=== PATIENT | male | born 1950 | race Caucasian/White ===

== ENCOUNTER 2020-01-07 11:50 | Observation (INO) | payer MEDICARE, OTHER ==
[~2020-01-07] VITALS: Ht 190.5 cm; Wt 109.8 kg
[2020-01-07] MEDS ORDERED: WELLTAB38 PO (12:21)
[2020-01-07] MEDS ORDERED: METF10004 PO (12:21)
[2020-01-07] MEDS ORDERED: GLYB25TA PO (12:21)
[2020-01-07] MEDS ORDERED: ECOT81TA5 PO (12:21)
[2020-01-07] MEDS ORDERED: KP F1200 PO (12:21)
[2020-01-07] MEDS ORDERED: SIMV10TA21 PO (12:21)
[2020-01-07] MEDS ORDERED: NIAC500T17 PO (12:21)
[2020-01-07] MEDS ORDERED: LISI-672 PO (12:21)
[2020-01-07] MEDS ORDERED: TH DTAB2 PO (12:21)
[2020-01-07 12:44] LABS: BASO % 0.6 % (0.0-1.0); EOS # 0.1 10^3/uL (0.0-0.5); EOS % 1.2 % (0.0-3.0); HEMATOCRIT 47.7 % (42.0-52.0); LYMPH # 2.2 10^3/uL (1.5-5.0); LYMPH % 30.8 % (24.0-44.0); MEAN CORPUSCULAR HEMOGLOBIN 30.7 pg (27.0-33.0); MEAN CORPUSCULAR HGB CONC 33.5 g/dl (32.0-36.5); MEAN CORPUSCULAR VOLUME 91.4 fl (80.0-96.0); MONO # 0.8 10^3/uL (0.0-0.8); MONO % 10.6 % (0.0-5.0); NEUTROPHILS # 4.1 10^3/uL (1.5-8.5); NEUTROPHILS % 56.5 % (36.0-66.0); PLATELET COUNT, AUTOMATED 168 10^3/uL (150-450); RED BLOOD COUNT 5.22 10^6/uL (4.30-6.10); WHITE BLOOD COUNT 7.2 10^3/uL (4.0-10.0)
--- NOTE | 2020-01-07 13:11 | REP ---
PA and lateral chest: There are no comparisons. The lung child are clear. The cardiac size is normal. The abner, mediastinum, and skeletal structures are unremarkable. Impression: Negative PA and lateral chest. Electronically Signed by Thiago Mclean MD 01/07/2020 01:03 P
[2020-01-07] MEDS ORDERED: LABETALOL HCL 100 MG/20 ML VIAL IV STA (13:15)
[2020-01-07] MEDS ORDERED: NS 500 ML IV ONE (13:45)
[2020-01-07 13:51] LABS: BLOOD UREA NITROGEN 19 MG/DL (7-18); CALCIUM LEVEL 9.2 MG/DL (8.8-10.2); CARBON DIOXIDE LEVEL 28 MEQ/L (21-32); CHLORIDE LEVEL 105 MEQ/L (98-107); CPK CREATINE PHOSPHOKINASE 141 U/L (39-308); CREATININE FOR GFR 1.03 MG/DL (0.70-1.30); GLOMERULAR FILTRATION RATE > 60.0 (>49); GLUCOSE, FASTING 172 MG/DL (70-100); MB/CK RELATIVE INDEX 2.84 (< OR =4); POTASSIUM SERUM 4.5 MEQ/L (3.5-5.1); SODIUM LEVEL 138 MEQ/L (136-145); TROPONIN I 0.09 NG/ML (< 0.10)
[2020-01-07 13:57] LABS: ALBUMIN 3.8 GM/DL (3.2-5.2); BILIRUBIN,DIRECT 0.1 MG/DL (0.0-0.2); BILIRUBIN,TOTAL 0.3 MG/DL (0.2-1.0); FREE T4 0.98 NG/DL (0.76-1.46); MAGNESIUM LEVEL 1.9 MG/DL (1.8-2.4); PHOSPHORUS LEVEL 3.2 MG/DL (2.5-4.9); THYROID STIMULATING HORMONE 1.8 uIU/ML (0.358-3.740); TOTAL PROTEIN 7.1 GM/DL (6.4-8.2)
[2020-01-07] MEDS ORDERED: METOPROLOL 5 MG/5 ML VIAL As Ordered ONE (14:11)
[2020-01-07] MEDS: METOPROLOL 5 MG/5 ML VIAL IV SCH ×3 (14:20→15:04)
[2020-01-07] MEDS ORDERED: TRAZ-252 PO (15:09)
[2020-01-07] MEDS ORDERED: IBUP200T45 PO (15:09)
[2020-01-07] MEDS ORDERED: TRAZ-189 PO (15:12)
[2020-01-07] MEDS ORDERED: traZODone 100 MG TAB PO PRN (15:30)
[2020-01-07] MEDS ORDERED: METOPROLOL TART 25 MG TABLET PO ONE (15:30)
--- NOTE | 2020-01-07 15:31 | HPEPDOC ---
[facility] Medical History & Physical Date of Admission Jan 07, 2020 Date of Service: Jan 07, 2020 Attending Physician: TIGRE BENZ MD History and Physical CHIEF COMPLAINT: Arrhythmia HISTORY OF PRESENT ILLNESS: 69-year-old male with past medical history of hypertension, diabetes mellitus, prostate cancer status post prostatectomy and hyperlipidemia presents from PCPs office with arrhythmia. Patient reports noticing elevated heart rate on Sunday while he was at the gym, has been monitoring his heart rate. Since then, every day and reports average heart rate between 90-110. Patient also has associated palpitations at night, no other symptoms. He denies any dizziness, chest pain, shortness of breath, nausea, vomiting, abdominal pain or diarrhea. He went to his PCP earlier today who did an EKG in the office which showed an arrhythmia and sent into the hospital. In the ED, patient's found to be in A. fib with RVR, treated with IV labetalol and metoprolol. Patient is currently comfortable in bed, a symptomatic, will complete at this time. 10 point review of system is negative except for above PAST MEDICAL HISTORY: 1. Hypertension. 2. diabetes mellitus. 3. Hyperlipidemia. 4. Depression. 5. Prostate cancer PAST SURGICAL HISTORY: 1. Prostatectomy. SOCIAL HISTORY: Ex-smoker, quit over 20 years ago, smoked 1 pack per day for over 30 years. 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 Denies drug use FAMILY HISTORY: Negative for heart disease ALLERGIES: Please see below. HOME MEDICATIONS: Please see below. PHYSICAL EXAMINATION: VITAL SIGNS: Please see below. GENERAL: No distress HEENT: Normocephalic, atraumatic, moist mucous membranes NECK: Supple CARDIOVASCULAR EXAMINATION: Irregularly irregular, tachycardic no murmurs RESPIRATORY EXAMINATION: Clear to auscultation, no wheezing ABDOMINAL EXAMINATION: Soft, nontender, nondistended, positive bowel sounds EXTREMITIES: Range of motion intact SKIN: No rash NEUROLOGICAL EXAMINATION: Alert and oriented 3, no focal deficits PSYCHIATRIC EXAMINATION: Calm and cooperative LABORATORY DATA: See below. IMAGING: Chest x-ray without acute pathology MICROBIOLOGY: Please see below. ASSESSMENT: 69-year-old male with past medical history of hypertension, diabetes mellitus, hyperlipidemia, prostate cancer, and depression, being admitted for new onset A. fib with RVR. . PLAN: 1. Atrial fibrillation with rapid ventricular response. Status post IV labetalol to metoprolol in the ED, rate mildly elevated, metoprolol tartrate 25 mg 1 now followed by 25 mg twice a day, Xarelto 20 mg daily for anticoagulation, TTE ordered, case discussed with care nurse rn, Dr. Chau, who recommends stabilization with outpatient follow-up for possible ablation as current arrhythmia has persisted for greater than 24 hours. Telemetry monitoring 2. Hypertension. Continue home lisinopril 3. Hyperlipidemia. Continue simvastatin. 4. Diabetes mellitus Sliding scale insulin with meals and at bedtime DVT prophylaxis: On Xarelto GI prophylaxis: Not needed Vital Signs Vital Signs Date Time Temp Pulse Resp B/P (MAP) Pulse Ox O2 Delivery O2 Flow Rate FiO2 01/07/20 15:04 118 179/89 01/07/20 12:40 Room Air 01/07/20 12:03 18 98 01/07/20 11:50 98.1 Laboratory Data Labs 24H Laboratory Tests 2 01/07/20 12:33: Immature Granulocyte % (Auto) 0.3, Neutrophils (%) (Auto) 56.5, Lymphocytes (%) (Auto) 30.8, Monocytes (%) (Auto) 10.6H, Eosinophils (%) (Auto) 1.2, Basophils (%) (Auto) 0.6, Neutrophils # (Auto) 4.1, Lymphocytes # (Auto) 2.2, Monocytes # (Auto) 0.8, Eosinophils # (Auto) 0.1, Basophils # (Auto) 0.0, Nucleated Red Blood Cells % (auto) 0.0 01/07/20 13:10: Anion Gap 5L, Glomerular Filtration Rate > 60.0, Calcium Level 9.2, Phosphorus Level 3.2, Magnesium Level 1.9, Total Bilirubin 0.3, Direct Bilirubin 0.1, Aspartate Amino Transf (AST/SGOT) 17, Alanine Aminotransferase (ALT/SGPT) 38, Alkaline Phosphatase 69, Total Creatine Kinase 141, Creatine Kinase MB 4.0H, Creatine Kinase MB Relative Index 2.84, Troponin I 0.09, Total Protein 7.1, Albumin 3.8, Albumin/Globulin Ratio 1.15, Thyroid Stimulating Hormone (TSH) 1.800, Free Thyroxine 0.98 CBC/BMP Laboratory Tests 01/07/20 12:33 01/07/20 13:10 Home Medications Scheduled Aspirin (Ecotrin) 81 Mg Tablet., 81 MG PO QPM Bupropion HCl (Wellbutrin Xl) 150 Mg Tab.er.24h, 150 MG PO DAILY Fish Oil/Dha/Epa (Fish Oil 1,200 mg Fish Oil) 1 Each Capsule, 1 CAP PO DAILY Glyburide (Glyburide) 2.5 Mg Tablet, 2.5 MG PO DAILY Lisinopril (Lisinopril) 30 Mg Tablet, 30 MG PO DAILY Metformin HCl (Metformin HCl) 1,000 Mg Tablet, 1,000 MG PO BID Multivitamin (Daily Multiple Vitamin) 1 Each Tablet, 1 TAB PO DAILY Niacinamide (Niacin) 500 Mg Tablet, 500 MG PO QPM Simvastatin (Simvastatin) 10 Mg Tablet, 10 MG PO QPM Scheduled PRN Ibuprofen (Ibu-200) 200 Mg Tablet, 600 MG PO Q6H PRN for PAIN Trazodone HCl (Trazodone HCl) 100 Mg Tablet, 50 MG PO QHS PRN for SLEEP Allergies Coded Allergies: miconazole (Verified Allergy, Intermediate, rash, 01/07/20) amoxicillin (Verified Adverse Reaction, Intermediate, diarrhea, 01/07/20) clavulanic acid (Verified Adverse Reaction, Intermediate, diarrhea, 01/07/20) A-FIB/CHADSVASC A-FIB History Current/History of A-Fib/PAF?: Yes Current PO Anticoag Therapy: Yes TIGRE BENZ MD Jan 07, 2020 15:31
[2020-01-07] MEDS ORDERED: GLUCAGON FOR INJ 1 MG VIAL (J1610) SC PRN (15:45)
[2020-01-07] MEDS ORDERED: DEXTROSE 50% 50 ML SYRINGE IV PRN (15:45)
[2020-01-07] MEDS ORDERED: GLUCOSE 4 GM CHEW TABLET PO PRN (15:45)
[2020-01-07] MEDS ORDERED: SIMVASTATIN 10 MG TAB PO SCH (18:00)
[2020-01-07] MEDS ORDERED: RIVAROXABAN 20 MG TAB (XARELTO) PO SCH (18:00)
[2020-01-07] MEDS ORDERED: ASPIRIN 81 MG ENTERIC TAB PO SCH (18:00)
[2020-01-07 18:04] VITALS: BP 169/93
[2020-01-07] MEDS: HumaLOG INSULIN (NovoLOG) PER UNIT SC SCH (19:03)
--- NOTE | 2020-01-07 20:57 | ECGEPIP ---
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
--- NOTE | 2020-01-07 20:59 | ECGEPIP ---
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
[2020-01-07] MEDS ORDERED: HumaLOG INSULIN (NovoLOG) PER UNIT SC SCH (21:00)
[2020-01-07] MEDS: METOPROLOL TART 25 MG TABLET PO SCH (21:47)
[2020-01-07 22:00] VITALS: BP 140/84
[2020-01-08 06:00] VITALS: BP 144/83
[2020-01-08 07:03] LABS: HEMATOCRIT 44.6 % (42.0-52.0); HEMOGLOBIN 14.9 g/dl (13.5-17.5); MEAN CORPUSCULAR HEMOGLOBIN 30.7 pg (27.0-33.0); MEAN CORPUSCULAR HGB CONC 33.4 g/dl (32.0-36.5); PLATELET COUNT, AUTOMATED 166 10^3/uL (150-450); RED BLOOD COUNT 4.85 10^6/uL (4.30-6.10); WHITE BLOOD COUNT 8.3 10^3/uL (4.0-10.0)
--- NOTE | 2020-01-08 07:30 | ECHO ---
DATE OF PROCEDURE: 01/07/2020 DATE OF : 1950 AGE: 69 GENDER: Male. HEIGHT: 75 inches WEIGHT: 242 pounds BODY SURFACE AREA: 2.39 meters squared INPATIENT: 4 [place] - Room 4225 REFERRING PHYSICIAN: Dr. Yonas Johnson INDICATION: Abnormal EKG/atrial fibrillation MEASUREMENTS 2-D Measurements: RV: 4.0 cm LV: 4.2 cm Septum: 1.2 cm Posterior wall: 1.2 cm Aortic root: 3.7 cm LA: 4.5 cm LVEF: 45-50% Doppler Measurements: AV: 1.6 m/s LVOT: 0.57 m/s LVOT diameter: 2.6 cm AV mean gradient: 6 mmHg Dimensionless index: 0.35 MV - E 77 Early mitral deceleration time: 158 ms E prime medial: 6.4 E prime lateral: 11.4 Average E/E prime ratio: 8.7/PCWP: 12.6 mmHg PV: 0.6 m/s Pulmonary artery acceleration time: 88 ms RVSP: 53-58 mmHg IVC: 2.2 cm COMMENTS: Underlying atrial fibrillation with controlled ventricular response. No intraventricular conduction disturbance. M-mode and two-dimensional echocardiography was performed with pulsed, continuous wave, color flow and tissue Doppler studies. Mild concentric left ventricle hypertrophy with currently mild global hypokinesis. Moderately dilated left atrium with currently normal estimated mean left atrial pressure. Right ventricular size upper limits of normal with slight hypokinesis and Doppler evidence of at least moderate to moderately severe pulmonary hypertension. Mildly dilated right atrium and inferior vena cava with reduced respiratory collapse in keeping with an elevated central venous pressure/right heart failure. Moderately severe aortic valvular sclerosis. Three equal size aortic cusps with reduced cusp separation and Doppler evidence to suggest at least mild calcific aortic stenosis. Mild aortic insufficiency. Normal aortic diameters. Mild degenerative thickening of the mitral valvular apparatus without inflow tract obstruction, but mild insufficiency. Normal appearing tricuspid valve with mild-moderate insufficiency. No apparent intracardiac mass or pericardial effusion. MTDD
[2020-01-08 07:46] LABS: ALBUMIN 3.6 GM/DL (3.2-5.2); ALT/SGPT 36 U/L (12-78); BILIRUBIN,TOTAL 0.3 MG/DL (0.2-1.0); BLOOD UREA NITROGEN 20 MG/DL (7-18); CALCIUM LEVEL 8.9 MG/DL (8.8-10.2); CARBON DIOXIDE LEVEL 24 MEQ/L (21-32); CHLORIDE LEVEL 105 MEQ/L (98-107); CREATININE FOR GFR 1.09 MG/DL (0.70-1.30); GLOMERULAR FILTRATION RATE > 60.0 (>49); GLUCOSE, FASTING 141 MG/DL (70-100); MAGNESIUM LEVEL 1.9 MG/DL (1.8-2.4); POTASSIUM SERUM 4.2 MEQ/L (3.5-5.1); SODIUM LEVEL 137 MEQ/L (136-145); TOTAL PROTEIN 7.1 GM/DL (6.4-8.2)
[2020-01-08 08:50] VITALS: BP 165/86
[2020-01-08] MEDS: METOPROLOL TART 25 MG TABLET PO SCH (08:50)
[2020-01-08] MEDS: HumaLOG INSULIN (NovoLOG) PER UNIT SC SCH ×2 (08:51→13:45)
[2020-01-08] MEDS ORDERED: buPROPion **XL** TABLET 150MG (WELLBUTRIN XL) PO SCH (09:00)
[2020-01-08] MEDS ORDERED: lisinopriL 10 MG TAB PO SCH (09:00)
[2020-01-08] MEDS ORDERED: FUROSEMIDE 40 MG/4 ML VIAL (J1940) IV ONE (09:15)
[2020-01-08] MEDS ORDERED: METO1TAB87 PO (12:02)
[2020-01-08] MEDS ORDERED: XARE20TA PO (12:02)
--- NOTE | 2020-01-08 22:50 | DS.PDOC ---
Discharge Summary General Date of Admission Jan 07, 2020 at 11:51 Date of Discharge 01/08/20 Attending Physician: TIGRE BENZ MD Discharge Summary PROCEDURES PERFORMED DURING STAY: None. ADMITTING DIAGNOSES: 1. New onset atrial fibrillation with rapid ventricular response. DISCHARGE DIAGNOSES: 1. New-onset atrial fibrillation with rapid ventricular response. COMPLICATIONS/CHIEF COMPLAINT: Atrial Fib With Rvr Diabetes Mellitus Hld Htn. HISTORY OF PRESENT ILLNESS: 69-year-old male with past medical history of diabetes mellitus, hypertension and hyperlipidemia who was admitted for new onset atrial fibrillation with rapid ventricular response. Patient was treated with metoprolol for rate control and started on Xarelto for anticoagulation. Patient had a TTE performed which did not show any acute pathology, but did show concentric left ventricular hypertrophy, mild global hypokinesis and elevated right-sided pressures. Case was discussed with Dr. Chau who recommended discharge home with outpatient follow-up for further management including possible cardioversion in the future. Patient evaluated in the morning, asymptomatic, rate is appropriately controlled, no complete at this time. Patient is clinically and hemodynamically stable for discharge and outpatient follow-up. HOSPITAL COURSE: As above. DISCHARGE MEDICATIONS: Please see below. ALLERGIES: Please see below. PHYSICAL EXAMINATION: VITAL SIGNS: Please see below. GENERAL: No distress HEENT: Normocephalic, atraumatic, moist mucous membranes NECK: Supple CARDIOVASCULAR EXAMINATION: Irregularly irregular, no murmurs RESPIRATORY EXAMINATION: Clear to auscultation, no wheezing ABDOMINAL EXAMINATION: Soft, nontender, nondistended, positive bowel sounds EXTREMITIES: Range of motion intact SKIN: No rash NEUROLOGICAL EXAMINATION: Alert and oriented 3, no focal deficits PSYCHIATRIC EXAMINATION: Calm and cooperative LABORATORY DATA: Please see below. IMAGING: TTE showing concentric left ventricular hypertrophy, mild global hypokinesis and elevated right-sided pressures PROGNOSIS: Fair ACTIVITY: As tolerated. DIET: Cardiac DISCHARGE PLAN: Follow-up with cardiology and PCP within 1-2 weeks DISPOSITION: 01 Home, Self-Care. DISCHARGE INSTRUCTIONS: 1. As above. DISCHARGE CONDITION: Stable. TIME SPENT ON DISCHARGE: Greater than 34 minutes. Vital Signs/I&Os Vital Signs Date Time Temp Pulse Resp B/P (MAP) Pulse Ox O2 Delivery O2 Flow Rate FiO2 01/08/20 08:50 98 165/86 01/08/20 06:00 98.0 20 97 01/07/20 18:04 Room Air I&O- Last 24 Hours up to 6 AM 01/08/20 06:00 Intake Total 2300 ml Output Total 1350 ml Balance 950 ml Laboratory Data Labs 24H Laboratory Tests 2 01/08/20 06:21: Nucleated Red Blood Cells % (auto) 0.0, Anion Gap 8, Glomerular Filtration Rate > 60.0, Calcium Level 8.9, Magnesium Level 1.9, Total Bilirubin 0.3, Aspartate Amino Transf (AST/SGOT) 25, Alanine Aminotransferase (ALT/SGPT) 36, Alkaline Ph osphatase 64, Total Protein 7.1, Albumin 3.6, Albumin/Globulin Ratio 1.03 01/08/20 12:22: Bedside Glucose (Misc Panel) 197H CBC/BMP Laboratory Tests 01/08/20 06:21 FSBS Laboratory Tests Test 01/08/20 12:22 Range/Units Bedside Glucose (Misc Panel) 197 80-115 MG/DL Discharge Medications Scheduled Aspirin (Ecotrin) 81 Mg Tablet.dr, 81 MG PO QPM, (Reported) Bupropion HCl (Wellbutrin Xl) 150 Mg Tab.er.24h, 150 MG PO DAILY, (Reported) Fish Oil/Dha/Epa (Fish Oil 1,200 mg Fish Oil) 1 Each Capsule, 1 CAP PO DAILY, (Reported) Glyburide (Glyburide) 2.5 Mg Tablet, 2.5 MG PO DAILY, (Reported) Lisinopril (Lisinopril) 30 Mg Tablet, 30 MG PO DAILY, (Reported) Metformin HCl (Metformin HCl) 1,000 Mg Tablet, 1,000 MG PO BID, (Reported) Metoprolol Tartrate (Metoprolol Tartrate) 25 Mg Tablet, 25 MG PO BID Multivitamin (Daily Multiple Vitamin) 1 Each Tablet, 1 TAB PO DAILY, (Reported) Niacinamide (Niacin) 500 Mg Tablet, 500 MG PO QPM, (Reported) Rivaroxaban (Xarelto) 20 Mg Tablet, 20 MG PO QHS@1800 Simvastatin (Simvastatin) 10 Mg Tablet, 10 MG PO QPM, (Reported) Scheduled PRN Trazodone HCl (Trazodone HCl) 100 Mg Tablet, 50 MG PO QHS PRN for SLEEP, (Report ed) Allergies Coded Allergies: miconazole (Verified Allergy, Intermediate, rash, 01/07/20) amoxicillin (Verified Adverse Reaction, Intermediate, diarrhea, 01/07/20) clavulanic acid (Verified Adverse Reaction, Intermediate, diarrhea, 01/07/20) TIGRE BENZ MD Jan 08, 2020 22:50
== END 2020-01-08 11:45 | disposition home or self-care (01) ==
LOC: M ED 11:50 → M ED INP 11:51 → ENRESERVDT 16:27 → ENRESERVTM 16:27 → M MSPAV 17:52
PROVIDERS: ADMIT Internal Medicine; ATTEND Internal Medicine
DX: I48.91 Unspecified atrial fibrillation (principal); I49.3 Ventricular premature depolarization; I16.0 Hypertensive urgency; E78.5 Hyperlipidemia, unspecified; E11.9 Type 2 diabetes mellitus without complications; I51.7 Cardiomegaly; F32.9 Major depressive disorder, single episode, unspecified; Z79.899 Other long term (current) drug therapy; Z79.82 Long term (current) use of aspirin; Z79.84 Long term (current) use of oral hypoglycemic drugs; Z79.01 Long term (current) use of anticoagulants; Z88.0 Allergy status to penicillin; Z88.3 Allergy status to other anti-infective agents; Z87.891 Personal history of nicotine dependence; Z85.46 Personal history of malignant neoplasm of prostate; Z90.79 Acquired absence of other genital organ(s); F10.21 Alcohol dependence, in remission
CPT/HCPCS: 36415; 71046; 80048; 80053; 80076; 82550; 82553; 83735; 84100; 84145; 84439; 84443; 84484; 85025; 85027; 93005; 93041; 93306; 94760; 96361; 96374; 96375; 96376; 99285; G0378; J1940

== ENCOUNTER → 2020-04-16 | Outpatient (CLI) | payer MEDICARE, OTHER ==
[~2020-04-16] MED LIST: AMIO200T3 PO; ASPI-161 PO; BUPR-69 PO; ECOT81TA5 PO; FISH1000 PO; GLYB25TA PO; HYDR-3490 PO; IBUP200T45 PO; JARD1TAB PO; KP F1200 PO; LISI30TA4 PO; LISI40TA4 PO; METF10004 PO; METO1TAB87 PO; NIAC500T17 PO; SIMV10TA21 PO; TH DTAB2 PO; TRAZ-189 PO; TRAZ-252 PO; VITMTA PO; WELLTAB38 PO; XARE20TA PO
== END ==
LOC: M LABSMTC 09:35
PROVIDERS: ATTEND Anesthesiology
DX: Z03.818 Encounter for observation for suspected exposure to other biological agents ruled out (principal); Z11.59 Encounter for screening for other viral diseases
CPT/HCPCS: C9803; U0003

== ENCOUNTER 2020-04-19 06:30 | Day surgery (SDC) | payer MEDICARE, OTHER ==
[~2020-04-19] VITALS: Ht 190.5 cm; Wt 108.1 kg
[~2020-04-19 06:30] MED LIST changes: -AMIO200T3 PO; -ASPI-161 PO; -BUPR-69 PO; +BUPR50TA PO; -FISH1000 PO; -HYDR-3490 PO; +HYDR25TAB PO; -JARD1TAB PO; -LISI40TA4 PO; +LR 1,000 ML IV ONE; -VITMTA PO
[2020-04-19] MEDS ORDERED: HumaLOG INSULIN (NovoLOG) PER UNIT SC ONE (07:30)
[2020-04-19] MEDS ORDERED: LR 1,000 ML IV SCH (08:15)
[2020-04-19] MEDS ORDERED: fentaNYL 100 MCG/2 ML INJECTION (J3010) As Ordered ONE (08:18)
[2020-04-19] MEDS ORDERED: propofoL 200 MG/20 ML VIAL As Ordered ONE (08:18)
[2020-04-19 08:40] VITALS: BP 124/69
--- NOTE | 2020-04-19 11:19 | RO ---
DATE OF PROCEDURE: 04/19/2020 DIAGNOSIS: Atrial fibrillation. PROCEDURE: Cardioversion. SURGEON: Valente Espino MD OPENSTACK CLOUD CONSULTING ARCHITECT: None ANESTHESIOLOGY: MD Neyda Das CRNA BRIEF HISTORY: Mr. Patrick is a 69-year-old man who has had persistent atrial fibrillation now for at least several months. Even though the arrhythmia is overall well tolerated, he has ongoing sensation of palpitations, especially at rest. Consequently, we discussed the pluses and minuses and decided to proceed with DC cardioversion. He signed appropriate consent on outpatient basis. DESCRIPTION OF PROCEDURE: Procedure was carried out in recovery room. The patient presented in fasting condition. After he was examined and all monitors were applied and appropriate time-out was taken, he was cardioverted with 200 joules in energy with defibrillator patches in anterolateral position. A single shock led to pentecostal of sinus mechanism. There were no obvious immediate complications, and the patient tolerated the procedure overall well. At the time of my dictation, 12-lead electrocardiogram (ECG) is pending. He will be discharged home on his chronic medications. GRIFFIN
--- NOTE | 2020-04-21 00:32 | ECGEPIP ---
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
--- NOTE | 2020-04-21 00:33 | ECGEPIP ---
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
== END 2020-04-19 09:00 | disposition home or self-care (01) ==
LOC: M SDC 06:30
PROVIDERS: ATTEND Internal Medicine Cardiovascular Disease
DX: I48.19 Other persistent atrial fibrillation (principal); I10 Essential (primary) hypertension; E78.00 Pure hypercholesterolemia, unspecified; E11.9 Type 2 diabetes mellitus without complications; Z79.82 Long term (current) use of aspirin; Z79.84 Long term (current) use of oral hypoglycemic drugs; Z85.46 Personal history of malignant neoplasm of prostate; Z79.899 Other long term (current) drug therapy
CPT/HCPCS: 92960; 93005; J3010

== ENCOUNTER 2020-06-02 08:40 | Day surgery (SDC) | payer MEDICARE, OTHER ==
[~2020-06-02 08:40] MED LIST changes: +BUPR-69 PO; -BUPR50TA PO; +LIDOCAINE 2% 100MG/5ML SDV (FOR ANES.) As Ordered ONE; -LR 1,000 ML IV ONE; +fentaNYL 100 MCG/2 ML INJECTION (J3010) As Ordered ONE; +fentaNYL 100 MCG/2 ML INJECTION (J3010) ONE; +propofoL 200 MG/20 ML VIAL As Ordered ONE
--- NOTE | 2020-07-21 13:40 | ECGEPIP ---
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
--- NOTE | 2020-07-21 13:41 | ECGEPIP ---
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
[2020-07-26] MEDS ORDERED: LISI40TA PO (10:34)
[2020-07-26] MEDS ORDERED: AMIO200T3 PO (10:34)
[2020-07-26] MEDS ORDERED: JARD1TAB PO (10:34)
== END 2020-06-02 11:15 | disposition home or self-care (01) ==
LOC: M SDC 08:40
PROVIDERS: ATTEND Internal Medicine Cardiovascular Disease
DX: I48.19 Other persistent atrial fibrillation (principal); I10 Essential (primary) hypertension; E78.5 Hyperlipidemia, unspecified; E11.9 Type 2 diabetes mellitus without complications; G47.30 Sleep apnea, unspecified; Z79.01 Long term (current) use of anticoagulants; Z79.84 Long term (current) use of oral hypoglycemic drugs; Z79.82 Long term (current) use of aspirin; Z79.899 Other long term (current) drug therapy
CPT/HCPCS: 92960; 93005; J3010

== ENCOUNTER → 2020-07-01 | Outpatient (CLI) | payer MEDICARE, OTHER ==
[~2020-07-01] MED LIST changes: +AMIO200T3 PO; +JARD1TAB PO; -LIDOCAINE 2% 100MG/5ML SDV (FOR ANES.) As Ordered ONE; +LISI40TA PO; -fentaNYL 100 MCG/2 ML INJECTION (J3010) As Ordered ONE; -fentaNYL 100 MCG/2 ML INJECTION (J3010) ONE; -propofoL 200 MG/20 ML VIAL As Ordered ONE
--- NOTE | 2020-07-09 14:23 | SLEEPCENT ---
DATE: 07/01/2020 ORDERED BY: ANJEL Chatterjee Nocturnal polysomnography was performed for evaluation of sleep physiology in this patient with a history of excessive somnolence and nonrestorative sleep. Seven hours and 22 minutes of data were reviewed. There were 283 minutes of sleep identified. Sleep latency was mildly prolonged at 15.5 minutes. REM latency was prolonged at 195 minutes. Sleep architecture showed fragmentation and poor progression. There was 1 REM cycle noted. Overall sleep efficiency was 66%. The patient's electrocardiogram showed a sinus rhythm with an average heart rate of 48 beats per minute. Rate ranged 42-82. EEG showed normal waveforms for wake and sleep. There were 206 respiratory events identified of 10 seconds in duration or greater for an apnea-hypopnea index of 43.7. The events were primarily obstructive but 47 mixed and central apneas were also seen. Events were more frequent in the non-REM stages, more frequent but not exclusive to the supine posture. Arousals from respiratory events occurred 23.1 times per hour and oxygen desaturations were seen below 90%. There was also some limb activity noted, particularly early in the study. Limb movement arousal index was 7. IMPRESSIONS: Obstructive sleep apnea syndrome (G47.33). Apnea-hypopnea index 43.7. RECOMMENDATION: The patient should be encouraged to return to the sleep disorder center for pressure therapy. In the interim, alcohol and sedative avoidance should be practiced and caution exercised during the operation of motor vehicles. MTDD
== END ==
LOC: M SLEEP 20:00
PROVIDERS: ATTEND Nurse Practitioner Family
DX: R06.83 Snoring (principal)

== ENCOUNTER → 2020-07-22 | Outpatient (CLI) | payer MEDICARE, OTHER ==
--- NOTE | 2020-07-27 07:15 | SLEEPCENT ---
DATE: 07/22/2020 ORDERED BY: Dr. Kathrine Monahan Nocturnal polysomnography was performed for the attempt at titration of pressure therapy in this patient with severe obstructive sleep apnea syndrome, apnea- hypopnea index 43.7. For testing, patient was fit with a ResMed Quattro full-face mask of large size. There was 4 cm of water pressure initially applied to the circuit, and the lights were extinguished. There was 7 hours and 23 minutes of data reviewed. There was only 96.5 minutes of sleep identified. Sleep latency was normal at 20 minutes. The patient did not achieve REM sleep. Sleep architecture showed poor progression. Overall sleep efficiency was only 22%. The patient's EKG showed what appeared to be a supraventricular irregular rhythm. Average heart rate 55 beats per minute. EEG showed fairly normal waveforms for wake and sleep. Mask tolerance was an issue, and despite optimal mask fit and minimal air leak, the patient required a change to a bilevel device. Best sleep was appreciated on the bilevel device, inspiratory +8. expiratory pressure +4, with which the patient did achieve stage 2 sleep without obstructive respiratory events. IMPRESSION: Obstructive sleep apnea syndrome (G47.33). RECOMMENDATION: Initiation of pressure therapy with a bilevel device, inspiratory 8 over expiratory 4 would seem reasonable based on these results. Given the limited data obtained during the titration study, should the patient's symptoms persist, it may be necessary to perform a second full night titration on bilevel pressure therapy. MTDD
== END ==
LOC: M SLEEP 20:00
PROVIDERS: ATTEND Nurse Practitioner Family
DX: G47.33 Obstructive sleep apnea (adult) (pediatric) (principal)

== ENCOUNTER → 2020-07-29 | Outpatient (CLI) | payer MEDICARE, OTHER | LOC: M LABSMTC 10:05 | PROVIDERS: ATTEND Anesthesiology | DX: Z01.812 Encounter for preprocedural laboratory examination (principal); Z20.828 Contact with and (suspected) exposure to other viral communicable diseases | CPT/HCPCS: C9803; U0003 ==

== ENCOUNTER 2020-08-03 06:44 | Day surgery (SDC) | payer MEDICARE, OTHER ==
[~2020-08-03] VITALS: Ht 190.5 cm; Wt 108.6 kg
[2020-08-03] MEDS ORDERED: NS 1,000 ML IV ONE (07:00)
[2020-08-03] MEDS ORDERED: propofoL 200 MG/20 ML VIAL As Ordered ONE (07:05)
[2020-08-03] MEDS ORDERED: LIDOCAINE 2% 100MG/5ML SDV (FOR ANES.) As Ordered ONE (07:05)
--- NOTE | 2020-08-03 07:58 | ROOR ---
Patient Name: Kip Patrick Procedure Date: 08/03/2020 7:33 AM Date of : 1950 Age: 69 Room: [facility] Gender: Male Note Status: Finalized Procedure: Colonoscopy Indications: High risk colon cancer surveillance: Personal history of colonic polyps Providers: Joni DOZIER MD Referring MD: RAYNA Carson Requesting Provider: Medicines: Monitored Anesthesia Care Complications: No immediate complications. Procedure: Pre-Anesthesia Assessment: - The heart rate, respiratory rate, oxygen saturations, blood pressure, adequacy of pulmonary ventilation, and response to care were monitored throughout the procedure. The Colonoscope was introduced through the anus and advanced to the cecum, identified by appendiceal orifice and ileocecal valve. The colonoscopy was somewhat difficult due to unsatisfactory bowel prep. The patient tolerated the procedure well. The quality of the bowel preparation was unsatisfactory and 20 percent obscured. The bowel preparation used was SUPREP via split dose instruction. The bowel preparation used was Milk of magnesia. Findings: The perianal and digital rectal examinations were normal. Multiple medium-mouthed diverticula were found in the sigmoid colon. Impression: - Preparation of the colon was unsatisfactory. - Diverticulosis in the sigmoid colon. - No specimens collected. Recommendation: - Repeat colonoscopy in 2 years because the bowel preparation was suboptimal. - (Rec alternate colon preparation for next colonoscopy) Joni Dozier MD Joni DOZIER MD 08/03/2020 7:57:48 AM Electronically signed by Joni DOZIER MD Number of Addenda: 0 Note Initiated On: 08/03/2020 7:33 AM Estimated Blood Loss: Estimated blood loss: none.
[2020-08-03 08:22] VITALS: BP 122/60
== END 2020-08-03 08:25 | disposition home or self-care (01) ==
LOC: M OPP 06:44
PROVIDERS: ATTEND Internal Medicine Gastroenterology
DX: Z12.11 Encounter for screening for malignant neoplasm of colon (principal); Z86.010 Personal history of colon polyps; K57.30 Diverticulosis of large intestine without perforation or abscess without bleeding; I10 Essential (primary) hypertension; E78.5 Hyperlipidemia, unspecified; E11.9 Type 2 diabetes mellitus without complications; R12 Heartburn; G47.33 Obstructive sleep apnea (adult) (pediatric); Z85.46 Personal history of malignant neoplasm of prostate; Z88.1 Allergy status to other antibiotic agents; Z79.01 Long term (current) use of anticoagulants; Z79.84 Long term (current) use of oral hypoglycemic drugs; Z79.899 Other long term (current) drug therapy; Z83.3 Family history of diabetes mellitus; Z82.49 Family history of ischemic heart disease and other diseases of the circulatory system; Z80.42 Family history of malignant neoplasm of prostate

== ENCOUNTER 2020-11-09 17:24 | Inpatient (IN) | payer MEDICARE, OTHER ==
[~2020-11-09] VITALS: Ht 190.5 cm; Wt 108.3 kg
--- OUTSIDE RECORDS SUMMARY | 2020-11-09 17:29 | CCD | Continuity of Care Document ---
Author Author Kip TAN [facility] Organization Unknown Address [address] [place] [address] Phone [phone] Care Team Providers Care Rfid Engineer Name Role Phone [facility] Stanislav Florence DPVesna AUTM [phone] Problems Active Problems Provider Date Type 2 diabetes mellitus Miguelito Barry M.D. Onset: 0 05/12/2011 Essential hypertension Miguelito Barry M.D. Onset: Mixed hyperlipidemia Miguelito Barry M.D. Onset: 05/12 History of polyp of colon Miguelito Barry M.D. Onset: 05/12/2011 Insomnia Miguelito Barry M.D. Onset: 2010 History of malignant neoplasm of prostate iMguelito Barry M.D. Onset: 05/12/2011 Depressive disorder Miguelito Barry M.D. Onset: 2010 Social History Type Date Description Comments Sex Unknown Tobacco Use Start: Unknown End: Unknown denies cigarette use Tobacco Use Start: Unknown Never Used Smokeless Tobacco ETOH Use Prior alcoholic, quit drinking a ge 33 Recreational Drug Use Denies Drug Use Tobacco Use Start: Unknown End: Unknown Patient is a former smoker quit 2000, prior 1 ppd x 35 years Smoking Status Reviewed: 10/04/20 Patient is a former smoker qu it 2000, prior 1 ppd x 35 years Exercise Type/Frequency Exercises sporadically Sun Exposure Uses sunscreen Seat Belt/Car Seat Always uses seat belt Bike Helmet Always Smoke Alarms Yes Smoke Alarms Carbon Monoxide Detector: Yes Allergies, Adverse Reactions, Alerts Active Allergies Reaction Severity Comments Date Augmentin diarrhea Severe 07/15/2014 Inactive Allergies NKDA 07/06/2009 Medications Active Medications SIG Qnty Indications Ordering Provide r Date Jardiance 10mg Tablets one tablet daily in the am 90tabs E11.69 Erika Tan FNP 06/29/2020 Xarelto 20mg Tablets 1 by mouth every day Unknown 01/08/2020 Valacyclovir HCL 1gm Tablets take 2 tablets by mouth twice daily for 1 day at onset of cold sore 4tabs B00.2 Radha Whiting M.D. 11/26/2017 Metformin HCL 1000mg Tablets take 1 tablet twice a day with meals for diabetes 180tabs E11.9 Walter Whiting M.D. 06/07/2015 Accu-Chek Multiclix Lancets Misc Use To Check Blood Glucose Twice A Day 1units Amrik Barry M.D. 10/16/2014 Onetouch Ultra Blue Strips use to check fasting blood sugar every morning for diabetes. maximum twice a day 150units E11.9 Radha Whiting M.D. 10/01/2014 Simvastatin 10mg Tablets take 1 tablet every evening for cholesterol 90tabs E78.2 Radha Whiting M.D. 11/08/2010 Aspir-[address] 1 po qd otc Unknown Multi Vitamin Mens Tablets otc Unknown Fish Oil 1200mg Capsules DR 1 by mouth daily Unknown Amiodarone HCL 200mg Tablets 1 by mouth 5 days per week Unknown Lisinopril 40mg Tablets 1 by mouth every day Unknown Immunizations CPT Code Status Date Vaccine Lot # [id number] Given 07/08/2020 Influenza Virus Vaccine, Quadrivalent,age 3 and up,multidose vial [id number] Given 08/22/2019 Zoster (Shingles ) Vaccine (HZV), Recombinant, Subunit, Adjuvanted 79917 Given 07/13/2019 Influenza Virus Vaccine, Quadrivalent,age 3 and up,multidose vial [id number] Given 08/28/2016 Influenza Vaccine (Fluzone)( medicare) [id number] 60475 Given 02/25/2016 Prevnar 13 For Adults [id number] 10004 Given 01/03/2013 Pneumococcal Vaccine [id number] Vital Signs Date Vital Result Comment 10/04/2020 8:04am BP Systolic 212 mmHg BP Diastolic 76 mmHg BP Systolic Recheck 187 mmHg BP Diastolic Recheck 79 mmHg Heart Rate 61 /min Body Temperature 97.0 F Respiratory Rate 17 /min Height 75 inches 6'3" Weight 242.25 lb O2 % BldC Oximetry 98 % Peak Expiratory Flow Rate 569 Estimated Peak Flow Rate [place] Body Weight 196 lb BMI (Body Mass Index) 30.3 kg/m2 06/29/2020 7:59am BP Systolic 204 mmHg BP Diastolic 93 mmHg BP Systolic Recheck 194 mmHg home 132/66 BP Diastolic Recheck 82 mmHg home 132/66 Heart Rate 62 /min Body Temperature 97.5 F Respiratory Rate 17 /min Height 75 inches 6'3" Weight 244.12 lb O2 % BldC Oximetry 98 % Peak Expiratory Flow Rate 571 Estimated Peak Flow Rate [place] Body Weight 196 lb BMI (Body Mass Index) 30.5 kg/m2 Results Test Acquired Date Facility Test Result H/L Range Note Hemoglobin A1c 09/29/2020 [facility] [address], [address] [place], [place] [address] [phone] Hemoglobin A1c 7.3 % High 4.8-5.6 1, 2 Metabolic Panel (14), Comprehensive 06/21/2020 [facility] [address], [address] [place], [place] [id number] [phone] Glucose 153 mg/dL High 65-99 BUN 16 mg/dL 8-27 Creatinine 1.16 mg/dL 0.76-1.27 eGFR If NonAfricn Am 64 mL/min/1.73 >59 eGFR If Africn Am 74 mL/min/1.73 >59 BUN/Creatinine Ratio 14 10-24 Sodium 135 mmol/L 134-144 Potassium 4.2 mmol/L 3.5-5.2 Chloride 98 mmol/L 96-106 Carbon Dioxide, Total 25 mmol/L 20-29 Calcium 9.6 mg/dL 8.6-10.2 Protein, Total 7.0 g/dL 6.0-8.5 Albumin 4.4 g/dL 3.8-4.8 Globulin, Total 2.6 g/dL 1.5-4.5 A/G Ratio 1.7 1.2-2.2 Bilirubin, Total 0.4 mg/dL 0.0-1.2 Alkaline Phosphatase 60 IU/L 39-117 Ast (Sgot) 28 IU/L 0-40 Alt (SGPT) 35 IU/L 0-44 Lipid Panel 06/21/[address] [facility] [id number] [place] [address], [address] [place] [address] [phone] Cholesterol, Total 129 mg/dL 100-199 Triglycerides 118 mg/dL 0-149 HDL Cholesterol 40 mg/dL >39 VLDL Cholesterol Terence 24 mg/dL 5-40 LDL Cholesterol Calc 65 mg/dL 0-99 3 Comment: TNP Hemoglobin A1c 06/21/[address] [facility] [id number] [place] [address], [address] [place] [address] [phone] Hemoglobin A1c 8.2 % High 4.8-5.6 4 Albumin, Random Urine 06/21/[address] [facility] [address] [place] [address], [address] [place] [address] [phone] Albumin, Urine 119.8 ug/mL Not Estab. Laboratory test finding 04/19/2020 [place] [address] [phone] Bedside Glucose 214 mg/dL High 80-115 5 1 A courtesy copy of this repo rt has been sent to the patient, 2 Prediabetes: 5.7 - 6.4 Diabetes: >6.4 Glycemic control for adults with diabetes: <7.0 3 Effective June 28, 2020, [facility] is implementing an improved equation to calculate Low Density Lipoprotein Cholesterol (LDL-C) concentrations, to be used in all lipid panels that report calculated LDL-C. This equation was developed through a collaboration with the National Heart, Lung and Blood Institutes of Health (NIH).[1] The NIH calculation overcomes the limitations of the existing [place] LDL-C equation and performs equally well in both fasting and non-fasting individuals. 1. Russ Malagon, Sandra C, Brianna Q, et al. A ne w equation for calculation of low-density lipoprotein cholesterol in patients with normolipidemia and/or hypertriglyceridemia. MARY Cardiol. 2019Dec 24. doi:10.1001/jamacardio.2020 .0013 4 Prediabetes: 5.7 - 6.4 Diabetes: >6.4 Glycemic control for adults with diabetes: <7.0 5 Doctor Notified Procedures Date Code Description Status 12/30/2019 [id number] Diabetic Foot Exam Completed Medical Devices Description No Information Available Encounters Type Date Location Provider Dx Diagnosis Office Visit 10/04/2020 8:00a Main Office PleErika morel, BUILDING COORDINATOR E11.6 9 Type 2 diabetes mellitus with other specified complication I10 Essential (primary) hyperten maru E78.2 Mixed hyperlipidemia Office Visit 06/29/2020 8:00a Main Office Pleskach, Erika, BUILDING COORDINATOR E11.6 9 Type 2 diabetes mellitus with other specified complication I10 Essential (primary) hyperten maru E78.2 Mixed hyperlipidemia F32.9 Major depressive disorder, s jeffery episode, unspecified I48.91 Unspecified atrial fibrillat ion Z85.46 Personal history of malignan t neoplasm of prostate Assessments Date Code Description Provider 10/04/2020 E11.69 Type 2 diabetes mellitus with ot her specified complication Pleskach, Erika, BUILDING COORDINATOR 10/04/2020 I10 Essential (primary) hypertension Pleskach, Erika, BUILDING COORDINATOR 10/04/2020 E78.2 Mixed hyperlipidemia Pleskach, M jordin, BUILDING COORDINATOR 06/29/2020 E11.69 Type 2 diabetes mellitus with ot her specified complication Pleskach, Erika, BUILDING COORDINATOR 06/29/2020 I10 Essential (primary) hypertension Pleskach, Erika, BUILDING COORDINATOR 06/29/2020 E78.2 Mixed hyperlipidemia Pleskach, M jordin, BUILDING COORDINATOR 06/29/2020 F32.9 Major depressive disorder, singl e episode, unspecified Pleskach, Erika, BUILDING COORDINATOR 06/29/2020 I48.91 Unspecified atrial fibrillation Pleskach, Erika, BUILDING COORDINATOR 06/29/2020 Z85.46 Personal history of malignant ne oplasm of prostate Erika Tan BUILDING COORDINATOR Plan of Treatment Future Appointment(s):* 01/03/2021 10:45 am - Erika Tan FNP at Main Office 10/04/2020 - Erika Tan BUILDING COORDINATOR* E11.69 Type 2 diabetes mellitus with other specified complication* New Labs:* Comprehensive Metabolic Profil, Scheduled: 12/27/20 * Hemoglobin A1c, Scheduled: 12/27/20 * Lipid Panel, Scheduled: 12/27/20 * Microalbumin Random, Scheduled: 12/27/20 * Comments:* A1C has improved from 8.2 to 7.3 with addition of Jardiance. * Follow up:* 3 months with labs for medicare wellness * I10 Essential (primary) hypertension* Comments:* well controlled at home, patient's brother had an AL 3 days ago so it has been a little higher but patient continues to monitor. * E78.2 Mixed hyperlipidemia* Comments:* continue statin Functional Status Functional Condition Comment Date Status Independent with all ADL's Activ e Hearing Aid in both ears no longer wears them, not helpful Active Independent with all IADL's Acti ve Trifocal glasses Active BiPap Active Mental Status Mental Condition Comment Date Status None Active Referrals Description No Information Available
--- OUTSIDE RECORDS SUMMARY | 2020-11-09 17:29 | CCD | Continuity of Care Document ---
Author Author Kip TAN [facility] Organization Unknown Address [address] [place] [address] Phone [phone] Care Team Providers Care Computer Artist Name Role Phone [facility] [phone] Stanislav Florence DPVesna AUTM [phone] Problems Active Problems Provider Date Type 2 diabetes mellitus Miguelito Barry M.D. Onset: 0 05/12/2011 Essential hypertension Miguelito Barry M.D. Onset: Mixed hyperlipidemia Miguelito Barry M.D. Onset: 05/12 History of polyp of colon Miguelito Barry M.D. Onset: 05/12/2011 Insomnia Miguelito Barry M.D. Onset: 2010 History of malignant neoplasm of prostate Miguelito Barry M.D. Onset: 05/12/2011 Depressive disorder Miguelito [...] ppd x 35 years Smoking Status Reviewed: 06/29/20 Patient is a former smoker qu it [...] 20mg Tablets 1 by mouth every day x 30 days Unknown 01/08/2020 Lisinopril 30mg Tablets 1 by mouth every day 90tabs Radha Whiting M.D. 020 Valacyclovir HCL 1gm Tablets take 2 tablets [...] Unknown Multi Vitamin Mens Tablets otc Unknown Trazodone HCL 50mg Tablets 1 tab by mouth every night at bedtime G47.00 Unknown 0 Fish Oil 1200mg Capsules DR 1 by mouth daily Unknown Amiodarone HCL 200mg Tablets 1 by mouth every day Unknown Niacinamide 500mg Tablets 1 Tab PO Daily Unknown Immunizations CPT Code Status Date Vaccine Lot # [id number] Given 07/08/2020 Influenza Virus Vaccine, Quadrivalent,age 3 and up,multidose vial 09983 Given 08/22/2019 Zoster (Shingles ) Vaccine (HZV), Recombinant, Subunit, Adjuvanted 93593 Given 07/13/2019 Influenza Virus Vaccine, Quadrivalent,age 3 and up,multidose vial [id number] Given 08/28/2016 Influenza Vaccine (Fluzone)( medicare) [id number] 06201 Given 02/25/2016 Prevnar 13 For Adults [id number] 78957 Given 01/03/2013 Pneumococcal Vaccine [id number] Vital Signs Date Vital Result Comment 06/29/2020 7:59am BP Systolic 204 mmHg BP Diastolic 93 mmHg BP Systolic Recheck 194 mmHg home 132/66 BP Diastolic Recheck 82 mmHg home 132/66 Heart Rate 62 /min Body Temperature 97.5 F Respiratory Rate 17 /min Height 75 inches 6'3" Weight 244.12 lb O2 % BldC Oximetry 98 % Peak Expiratory Flow Rate 571 Estimated Peak Flow Rate [place] Body Weight 196 lb BMI (Body Mass Index) 30.5 kg/m2 03/18/2020 12:50pm BP Systolic 149 mmHg BP Diastolic 87 mmHg BP Systolic Recheck 142 mmHg BP Diastolic Recheck 71 mmHg Heart Rate 102 /min Body Temperature 98.9 F Respiratory Rate 16 /min Height 75 inches 6'3" Weight 239.00 lb O2 % BldC Oximetry 97 % Peak Expiratory Flow Rate 571 Estimated Peak Flow Rate [place] Body Weight 196 lb BMI (Body Mass Index) 29.9 kg/m2 Results Test Acquired Date Facility Test Result H/L Range Note Hemoglobin A1c 09/29/2020 [facility] [id number] [facility], [address] [place], [place] [address] [phone] Hemoglobin A1c 7.3 % High 4.8-5.6 1, 2 Metabolic Panel (14), Comprehensive 06/21/2020 [facility] [address] [facility], [address] [place], [place] [address] [phone] Glucose 153 mg/dL High 65-99 BUN 16 [...] (SGPT) 35 IU/L 0-44 Lipid Panel 06/21/[address] [facility] [address] [place] [address], [address] [place] [address] [phone] Cholesterol, Total 129 mg/dL 100-199 Triglycerides 118 mg/dL 0-149 HDL Cholesterol 40 mg/dL >39 VLDL Cholesterol Terence 24 mg/dL 5-40 LDL Cholesterol Calc 65 mg/dL 0-99 3 Comment: TNP Hemoglobin A1c 06/21/[address] [facility] [address] [place] [address], [address] [address] [phone] Hemoglobin A1c 8.2 % High 4.8-5.6 4 Albumin, Random Urine 06/21/[address] [facility] [address] [place] [address], [address] [place] [address] [phone] Albumin, Urine 119.8 ug/mL Not Estab. Laboratory test finding 04/19/2020 [place] [address] [phone] Bedside Glucose 214 mg/dL High 80-115 5 [...] Notified Procedures Date Code Description Status 12/30/2019 [id number] Diabetic Foot Exam Completed Medical Devices Description No Information Available Encounters Type Date Location Provider Dx Diagnosis Office Visit 06/29/2020 8:00a Main Office Erika Tan FNP E11.6 9 Type 2 diabetes mellitus with other specified complication I10 Essential (primary) hyperten maru E78.2 Mixed hyperlipidemia F32.9 Major depressive disorder, s jeffery episode, unspecified I48.91 Unspecified atrial fibrillat ion Z85.46 Personal history of malignan t neoplasm of prostate Assessments Date Code Description Provider 06/29/2020 E11.69 Type 2 diabetes mellitus with ot her specified complication Erika Tan FNP 06/29/2020 I10 Essential (primary) hypertension Erika Tan FNP 06/29/2020 E78.2 Mixed hyperlipidemia Vesna Tan FNP 06/29/2020 F32.9 Major depressive disorder, singl e episode, unspecified PleErika morel, ANJEL 06/29/2020 I48.91 Unspecified atrial fibrillation Erika Tan FNP 06/29/2020 Z85.46 Personal history of malignant ne oplasm of prostate Erika Tan FNP Plan of Treatment Future Appointment(s):* 10/04/2020 8:00 am - Erika Tan FNP at Main Office 06/29/2020 - Erika Tan FNP* E11.69 Type 2 diabetes mellitus with other specified complication* New Medication:* Jardiance 10 mg - one tablet daily in the am * Comments:* A1C has increased significantly to 8.2. Discussed dietary changes at length. Patient is going to start intermittent fasting, he has read a lot regarding this and it's benefits. In light of this I feel that glyburide is not a safe choice to continue due to the risk of hypoglycemia. Will start him on a SGLT-2 and see response * Follow up:* 3 months with labs * I10 Essential (primary) hypertension* Comments:* controlled, continue medications * E78.2 Mixed hyperlipidemia* Comments:* continue statin * F32.9 Major depressive disorder, single episode, unspecified* Comments:* doing well off medications * I48.91 Unspecified atrial fibrillation* Comments:* Rate is controlled, patient follows with cardiology. * Z85.46 Personal history of malignant neoplasm of prostate Functional Status Functional Condition Comment Date Status Independent with all ADL's Activ e Hearing Aid in both ears no longer wears them, not helpful Active Independent with all IADL's Acti ve Trifocal glasses Active Mental Status Mental Condition Comment Date Status None Active Referrals Description No Information Available
--- OUTSIDE RECORDS SUMMARY | 2020-11-09 17:29 | CCD | Continuity of Care Document ---
Author Author Kip TAN [facility] Organization Unknown Address [address] [place] [address] Phone [phone] Care Team Providers Care Sales Representative Gas Service Name Role Phone [facility] Stanislav Florence DPVesna AUTM [phone] Problems Active Problems Provider Date Type 2 diabetes mellitus Miguelito Barry M.D. Onset: 0 05/12/2011 Essential hypertension Miguelito Barry M.D. Onset: Mixed hyperlipidemia Miguelito Barry M.D. Onset: 05/12 History of polyp of colon Miguelito Barry M.D. Onset: 05/12/2011 Insomnia Miguelito Barry M.D. Onset: 2010 History of malignant neoplasm of prostate Miguelito Baryr M.D. Onset: 05/12/2011 Depressive disorder Miguelito Barry [...] Check Blood Glucose Twice A Day 1units Amrki Barry M.D. 10/16/2014 Onetouch Ultra Blue Strips [...] CPT Code Status Date Vaccine Lot # [id number] Given 07/08/2020 Influenza Virus Vaccine, Quadrivalent,age 3 and up,multidose vial 18547 Given 08/22/2019 Zoster (Shingles ) Vaccine (HZV), Recombinant, Subunit, Adjuvanted 51146 Given 07/13/2019 Influenza Virus Vaccine, Quadrivalent,age 3 and up,multidose vial [id number] Given 08/28/2016 Influenza Vaccine (Fluzone)( medicare) [id number] 66510 Given 02/25/2016 Prevnar 13 For Adults [id number] 93432 Given 01/03/2013 Pneumococcal Vaccine [id number] Vital Signs Date Vital Result Comment 10/04/2020 8:04am BP Systolic 212 mmHg BP Diastolic 76 mmHg BP Systolic Recheck 187 mmHg BP Diastolic Recheck 79 mmHg Heart Rate 61 /min Body Temperature 97.0 F Respiratory Rate 17 /min Height 75 inches 6'3" Weight 242.25 lb O2 % BldC Oximetry 98 % Peak Expiratory Flow Rate 569 Estimated Peak Flow Rate [place] Body Weight 196 lb BMI (Body Mass [...] Flow Rate 571 Estimated Peak Flow Rate [place] Body Weight 196 lb BMI (Body Mass Index) 30.5 kg/m2 Results Test Acquired Date Facility Test Result H/L Range Note Hemoglobin A1c 09/29/2020 [facility] [address], [address] [place], [place] [address] [phone] Hemoglobin A1c 7.3 % High 4.8-5.6 1, 2 Metabolic Panel (14), Comprehensive 06/21/2020 [facility] [address], [address] [place], [place] [address] [phone] Glucose 153 mg/dL High 65-99 BUN 16 [...] 35 IU/L 0-44 Lipid Panel 06/21/[address] [facility] [id number] [place] [address], [address] [place] [address] [phone] Cholesterol, Total 129 mg/dL 100-199 Triglycerides 118 mg/dL 0-149 HDL Cholesterol 40 mg/dL >39 VLDL Cholesterol Terence 24 mg/dL 5-40 LDL Cholesterol Calc 65 mg/dL 0-99 3 Comment: TNP Hemoglobin A1c 06/21/[address] [facility] [id number] [place] [address], [address] [place] [address] [phone] Hemoglobin A1c 8.2 % High 4.8-5.6 4 Albumin, Random Urine 06/21/[address] [facility] [address] [place] [address], [address] [place] [address] [phone] Albumin, Urine 119.8 ug/mL Not Estab. Laboratory test finding 04/19/2020 [place] [address] [phone] Bedside Glucose 214 mg/dL High 80-115 5 [...] Notified Procedures Date Code Description Status 12/30/2019 [id number] Diabetic Foot Exam Completed Medical Devices Description No Information Available Encounters Type Date Location Provider Dx Diagnosis Office Visit 06/29/2020 8:00a Main Office Erika Tan, BSA OFFICER E11.6 9 Type 2 diabetes mellitus with other specified complication I10 Essential (primary) hyperten maru E78.2 Mixed hyperlipidemia F32.9 Major depressive disorder, s jeffery episode, unspecified I48.91 Unspecified atrial fibrillat ion Z85.46 Personal history of malignan t neoplasm of prostate Assessments Date Code Description Provider 10/04/2020 E11.69 Type 2 diabetes mellitus with ot her specified complication Pleskach, Erika, BSA OFFICER 10/04/2020 I10 Essential (primary) hypertension PleErika morel, BSA OFFICER 10/04/2020 E78.2 Mixed hyperlipidemia Vesna Tan, BSA OFFICER 06/29/2020 E11.69 Type 2 diabetes mellitus with ot her specified complication Pleskach, Erika, BSA OFFICER 06/29/2020 I10 Essential (primary) hypertension Plekennediach Erika, BSA OFFICER 06/29/2020 E78.2 Mixed hyperlipidemia Vesna Tan, BSA OFFICER 06/29/2020 F32.9 Major depressive disorder, singl e episode, unspecified Pleskach, Erika, BSA OFFICER 06/29/2020 I48.91 Unspecified atrial fibrillation PleErika morel, BSA OFFICER 06/29/2020 Z85.46 Personal history of malignant ne oplasm of prostate Erika Tan, BSA OFFICER Plan of Treatment 10/04/2020 - PleErika morel, BSA OFFICER* E11.69 Type 2 diabetes mellitus with other specified complication* New Labs:* Comprehensive Metabolic Profil, Scheduled: 12/27/20 * Hemoglobin A1c, Scheduled: 12/27/20 * Lipid Panel, Scheduled: 12/27/20 * Microalbumin Random, Scheduled: 12/27/20 * Follow up:* 3 months with labs for medicare wellness * I10 Essential (primary) hypertension * E78.2 Mixed hyperlipidemia Functional Status Functional Condition Comment Date Status Independent with all ADL's Activ e Hearing Aid in both ears no longer wears them, not helpful Active Independent with all IADL's Acti ve Trifocal glasses Active BiPap Active Mental Status Mental Condition Comment Date Status None Active Referrals Description No Information Available
--- OUTSIDE RECORDS SUMMARY | 2020-11-09 17:30 | CCD ---
Author Author [facility] Organization [facility] Address Unknown Phone Unavailable Care Team Providers Care Technology Auditor Name Role Phone Valente Espino MD Unavailable Unavailable Valente Espino MD Unavailable Unavailable Valente Espino MD Unavailable Unavailable Valente Espino MD Unavailable Unavailable Valente Espino MD Unavailable Unavailable Valente Espino MD Unavailable Unavailable Valente Espino MD Unavailable Unavailable Valente Espino MD Unavailable Unavailable Valente Espino MD Unavailable Unavailable Valente Espino MD Unavailable Unavailable Valente Espino MD Unavailable Unavailable Valente Espino MD Unavailable Unavailable Valente Espino MD Unavailable Unavailable Valente Espino MD Unavailable Unavailable Valente Espino MD Unavailable Unavailable Valente Espino MD Unavailable Unavailable Valente Espino MD Unavailable Unavailable Valente Espino MD Unavailable Unavailable Valente Espino MD Unavailable Unavailable Valente Espino MD Unavailable Unavailable Valente Espino MD Unavailable Unavailable Valente Espino MD Unavailable Unavailable Valente Espino MD Unavailable Unavailable Valente Espino MD Unavailable Unavailable Valente Espino MD Unavailable Unavailable Valente Espino MD Unavailable Unavailable Valente Espino MD Unavailable Unavailable Valente Espino MD Unavailable Unavailable Valente Espino MD Unavailable Unavailable Valente Espino MD Unavailable Unavailable SleValente nelson MD Unavailable Unavailable Valente Espino MD Unavailable Unavailable Valente Espino MD Unavailable Unavailable Valente Espino MD Unavailable Unavailable Valente Espino MD Unavailable Unavailable Valente Espino MD Unavailable Unavailable Valente Espino MD Unavailable Unavailable Valente Espino MD Unavailable Unavailable Valente Espino MD Unavailable Unavailable Valente Espino MD Unavailable Unavailable Valente Espino MD Unavailable Unavailable Valente Espino MD Unavailable Unavailable Valente Espino MD Unavailable Unavailable Valente Espino MD Unavailable Unavailable Valente Espino MD Unavailable Unavailable Valente Espino MD Unavailable Unavailable Valente Espino MD Unavailable Unavailable Valente Espino MD Unavailable Unavailable Valente Espino MD Unavailable Unavailable Valente Espino MD Unavailable Unavailable Valente Espino MD Unavailable Unavailable Valente Espino MD Unavailable Unavailable Valente Espino MD Unavailable Unavailable Valente Espino MD Unavailable Unavailable Valente Espino MD Unavailable Unavailable Valente Espino MD Unavailable Unavailable ALEKSEY, KSEINA HUSSEIN SOFTWARE CONFIGURATION ANALYST-C Unavailable Unavailable ALEKSEY, KSENIA HUSSEIN SOFTWARE CONFIGURATION ANALYST-C Unavailable Unavailable ALEKSEY, KSENIA HUSSEIN SOFTWARE CONFIGURATION ANALYST-C Unavailable Unavailable ALEKSEY, KSENIA HUSSEIN SOFTWARE CONFIGURATION ANALYST-C Unavailable Unavailable ALEKSEY, KSENIA HUSSEIN SOFTWARE CONFIGURATION ANALYST-C Unavailable Unavailable ALEKSEY, KSENIA HUSSEIN SOFTWARE CONFIGURATION ANALYST-C Unavailable Unavailable ALEKSEY, KSENIA HUSSEIN SOFTWARE CONFIGURATION ANALYST-C Unavailable Unavailable ALEKSEY, KSENIA HUSSEIN SOFTWARE CONFIGURATION ANALYST-C Unavailable Unavailable ALEKSEY, KSENIA HUSSEIN SOFTWARE CONFIGURATION ANALYST-C Unavailable Unavailable ALEKSEY, KSENIA HUSSEIN SOFTWARE CONFIGURATION ANALYST-C Unavailable Unavailable ALEKSEY, KSENIA HUSSEIN SOFTWARE CONFIGURATION ANALYST-C Unavailable Unavailable ALEKSEY, KSENIA HUSSEIN SOFTWARE CONFIGURATION ANALYST-C Unavailable Unavailable ALEKSEY, KSENIA HUSSEIN SOFTWARE CONFIGURATION ANALYST-C Unavailable Unavailable ALEKSEY, KSENIA HUSSEIN SOFTWARE CONFIGURATION ANALYST-C Unavailable Unavailable ALEKSEY, KSENIA HUSSEIN SOFTWARE CONFIGURATION ANALYST-C Unavailable Unavailable Pleskach, Erika SOFTWARE CONFIGURATION ANALYST Unavailable Unavailable Pleskach, Erika SOFTWARE CONFIGURATION ANALYST Unavailable Unavailable Pleskach, Erika SOFTWARE CONFIGURATION ANALYST Unavailable Unavailable Pleskach, Erika SOFTWARE CONFIGURATION ANALYST Unavailable Unavailable Pleskach, Erika SOFTWARE CONFIGURATION ANALYST Unavailable Unavailable Pleskach, Erika SOFTWARE CONFIGURATION ANALYST Unavailable Unavailable Pleskach, Erika SOFTWARE CONFIGURATION ANALYST Unavailable Unavailable Pleskach, Erika SOFTWARE CONFIGURATION ANALYST Unavailable Unavailable Pleskach, Erika SOFTWARE CONFIGURATION ANALYST Unavailable Unavailable Pleskach, Erika SOFTWARE CONFIGURATION ANALYST Unavailable Unavailable Pleskach, Erika SOFTWARE CONFIGURATION ANALYST Unavailable Unavailable Pleskach, Erika SOFTWARE CONFIGURATION ANALYST Unavailable Unavailable Pleskach, Erika SOFTWARE CONFIGURATION ANALYST Unavailable Unavailable Pleskach, Erika SOFTWARE CONFIGURATION ANALYST Unavailable Unavailable Pleskach, Erika SOFTWARE CONFIGURATION ANALYST Unavailable Unavailable Pleskach, Erika SOFTWARE CONFIGURATION ANALYST Unavailable Unavailable Pleskach, Erika SOFTWARE CONFIGURATION ANALYST Unavailable Unavailable Pleskach, Erika SOFTWARE CONFIGURATION ANALYST Unavailable Unavailable Pleskach, Erika SOFTWARE CONFIGURATION ANALYST Unavailable Unavailable Pleskach, Erika SOFTWARE CONFIGURATION ANALYST Unavailable Unavailable Pleskach, Erika SOFTWARE CONFIGURATION ANALYST Unavailable Unavailable Pleskach, Erika SOFTWARE CONFIGURATION ANALYST Unavailable Unavailable Pleskach, Erika SOFTWARE CONFIGURATION ANALYST Unavailable Unavailable Pleskach, Erika SOFTWARE CONFIGURATION ANALYST Unavailable Unavailable Pleskach, Erika SOFTWARE CONFIGURATION ANALYST Unavailable Unavailable Pleskach, Erika SOFTWARE CONFIGURATION ANALYST Unavailable Unavailable Pleskach, Erika SOFTWARE CONFIGURATION ANALYST Unavailable Unavailable Pleskach, Erika SOFTWARE CONFIGURATION ANALYST Unavailable Unavailable Woodridge, N Clay TERRITORY SALES EXECUTIVE Unavailable Unavailable Bentley, N Clay TERRITORY SALES EXECUTIVE Unavailable Unavailable Woodridge, N Clay TERRITORY SALES EXECUTIVE Unavailable Unavailable Bentley, N Clay TERRITORY SALES EXECUTIVE Unavailable Unavailable Bentley, N Clay TERRITORY SALES EXECUTIVE Unavailable Unavailable Woodridge, N Clay TERRITORY SALES EXECUTIVE Unavailable Unavailable Woodridge, N Clay TERRITORY SALES EXECUTIVE Unavailable Unavailable Woodridge, N Clay TERRITORY SALES EXECUTIVE Unavailable Unavailable Bentley, N Clay TERRITORY SALES EXECUTIVE Unavailable Unavailable Woodridge, N Clay TERRITORY SALES EXECUTIVE Unavailable Unavailable Woodridge, N Clay TERRITORY SALES EXECUTIVE Unavailable Unavailable Bentley, N Clay TERRITORY SALES EXECUTIVE Unavailable Unavailable Woodridge, N Clay TERRITORY SALES EXECUTIVE Unavailable Unavailable Bentley, N Clay TERRITORY SALES EXECUTIVE Unavailable Unavailable Woodridge, N Clay TERRITORY SALES EXECUTIVE Unavailable Unavailable Bentley, N Clay TERRITORY SALES EXECUTIVE Unavailable Unavailable Woodridge, N Clay TERRITORY SALES EXECUTIVE Unavailable Unavailable Woodridge, N Clay TERRITORY SALES EXECUTIVE Unavailable Unavailable Woodridge, N Clay TERRITORY SALES EXECUTIVE Unavailable Unavailable Bentley, N Clay TERRITORY SALES EXECUTIVE Unavailable Unavailable Woodridge, N Clay TERRITORY SALES EXECUTIVE Unavailable Unavailable Woodridge, N Clay TERRITORY SALES EXECUTIVE Unavailable Unavailable Bentley, N Clay TERRITORY SALES EXECUTIVE Unavailable Unavailable Woodridge, N Clay TERRITORY SALES EXECUTIVE Unavailable Unavailable Bentley, N Clay TERRITORY SALES EXECUTIVE Unavailable Unavailable Woodridge, N Clay TERRITORY SALES EXECUTIVE Unavailable Unavailable Woodridge, N Clay TERRITORY SALES EXECUTIVE Unavailable Unavailable Bentley, N Clay TERRITORY SALES EXECUTIVE Unavailable Unavailable Woodridge, N Clay TERRITORY SALES EXECUTIVE Unavailable Unavailable Woodridge, N Clay TERRITORY SALES EXECUTIVE Unavailable Unavailable Re-disclosure Warning The records that you are about to access may contain information from federally-assisted alcohol or drug abuse programs. If such information is present, then the following federally mandated warning applies: This information has been disclosed to you from records protected by federal confidentiality rules (42 CFR part 2). The federal rules prohibit you from making any further disclosure of this information unless further disclosure is expressly permitted by the written consent of the person to whom it pertains or as otherwise permitted by 42 CFR part 2. A general authorization for the release of medical or other information is NOT sufficient for this purpose. The Federal rules restrict any use of the information to criminally investigate or prosecute any alcohol or drug abuse patient.The records that you are about to access may contain highly sensitive health information, the redisclosure of which is protected by Article 27-F of the [facility] Public Health law. If you continue you may have access to information: Regarding HIV / AIDS; Provided by facilities licensed or operated by the [facility] Office of Mental Health; or Provided by the [facility] Office for People With Developmental Disabilities. If such information is present, then the following [facility] mandated warning applies: This information has been disclosed to you from confidential records which are protected by state law. State law prohibits you from making any further disclosure of this information without the specific written consent of the person to whom it pertains, or as otherwise permitted by law. Any unauthorized further disclosure in violation of state law may result in a fine or [place] health care facility sentence or both. A general authorization for the release of medical or other information is NOT sufficient authorization for further disc losure. Family History Family Member Name Family Member Gender Family Member Status Date o f Status Description Data Source(s) Unknown Unknown Problem [facility] ([facility] paternal and maternal sides Encounters Encounter Providers Location Date Indications Data Source(s ) Outpatient Attender: Erika Tan [facility] Main Office 10/04/2020 0 7:00:00 AM EST [facility] ([facility] Outpatient Attender: Valente AMARALJENNA-SJP.JENNA 08/29 12:00:00 AM EST [facility] Outpatient Attender: HUSSEIN ALEKSEY HOBBS-C [facility]/[facility]arik/[facility] 07/15/2020 08:45:00 AM EDT [facility] Outpatient Attender: HUSSEIN ALEKSEY HOBBS-C [facility]/[facility]arik/[facility] e[facility] 06/30/2020 02:45:00 PM EDT [facility] ([facility] Outpatient Attender: Erika HOBBS Main Office 06/29/2020 0 8:00:00 AM EDT [facility] ([facility] Outpatient Attender: Valente ZAMORASJMargaret.JENNA 05/29 12:00:00 AM EDT [facility] Outpatient Attender: Valente CUNNINGHAM-SJMargaret.JENNA 04/29 12:00:00 AM EDT - 05/25/2020 02:33:41 PM EDT [facility] Outpatient Attender: Clay ZAMORASJEveliaJENNA 05/11/2020 12 :00:00 AM EDT [facility] Outpatient Attender: Clay MARTEJENNA 020 12:00:00 AM EDT - 04/26/2020 11:23:06 AM EDT [facility] Outpatient Attender: Clay MARTEJENNA 020 12:00:00 AM EDT - 03/29/2020 12:07:55 PM EDT [facility] Outpatient Attender: Erika HOBBS Main Office 03/18/2020 0 1:00:00 PM EDT [facility] ([facility] Outpatient Attender: Clay Hagan NP SJP.JENNA-SJP.JENNA 020 12:36:18 PM EDT - 02/23/2020 01:44:01 PM EDT [facility] Outpatient Attender: Clay Hagan NP SJP.JENNA-SJP.JENNA 020 12:00:00 AM EDT - 01/27/2020 11:43:00 AM EDT [address], [facility] [id number] 01/14/2020 12:00:00 AM EDT eCW1 ([facility]) [address], [facility] [address] 01/14/2020 12:00:00 AM EDT eC1 ([facility]) Outpatient Attender: Erika Tan [facility] Main Office 01/12/2020 1 1:30:00 AM EDT [facility] ([facility] Outpatient Attender: Erika Tan [facility] Main Office 01/07/2020 1 1:00:00 AM EDT [facility] ([facility] Immunizations Vaccine Date Status Description Data Source(s) New in 2012. IIV4 07/08/2020 12:01:00 PM EDT completed [facility] ([facility] Medications Medication Brand Name Start Date Product Form Dose Route Admi nistrative Instructions Pharmacy Instructions Status Indications Reaction Description Data Source(s) BIPAP 08/03/2020 12:00:00 AM EDT active [facility] ([facility], ) empagliflozin 10 MG Oral Tablet [Jardiance] Jardiance 06/29/2020 12:00:00 AM EDT active [facility] ([facility] 12 HR Bupropion Hydrochloride 100 MG Extended Release Oral Tablet Bupropion Hydrochloride ER (SR) 01/12/2020 12:00:00 AM EDT c ompleted [facility] ([facility] 20 mg 01/08/2020 12:00:00 AM EDT tablet 30 TAKE ONE TABLET BY MOUTH EVERY DAY AT 6 P.M. TAKE ONE TABLET BY MOUTH EVERY DAY AT 6 P.M. SOLD: 01/08/2020 [facility] Metoprolol Tartrate 25 MG Oral Tablet Metoprolol Tartrate 12:00:00 AM EDT ORAL completed [facility] ([facility] 25 mg 01/08/2020 12:00:00 AM EDT tablet 60 TAKE ONE TABLET BY MOUTH TWICE A DAY TAKE ONE TABLET BY MOUTH TWICE A DAY SOLD: 01/08/2020 [facility] rivaroxaban 20 MG Oral Tablet [Xarelto] Xarelto 01/08/2020 12:00:0 0 AM EDT ORAL active [facility] ([facility] Lisinopril 30 MG Oral Tablet Lisinopril 12/30/2019 12:00:00 AM EST ORAL active [facility] ([facility] 24 HR Bupropion Hydrochloride 150 MG Extended Release Oral Tablet Bupropion Hydrochloride ER (XL) 12/30/2019 12:00:00 AM EST ORAL c ompleted [facility] ([facility] Magnesium Hydroxide 80 MG/ML Oral Suspension Milk Of Magnesi a 12/03/2019 12:00:00 AM EST ORAL active M [facility] ([facility], ) Suprep Bowel Prep Kit Suprep Bowel Prep Kit 12/03/2019 12:00:00 AM EST active [facility] ([facility], ) Insurance Providers Payer name Policy type / Coverage type Policy ID Covered republican ID Covered republican's relationship to crowell Policy Crowell Plan Information [facility] InferX [id number] SP A [id number] MEDICARE [id number] SP [id number] COMMERCIAL GENERIC [id number] Brianna A [id number] MEDICARE [id number] Brianna [id number] MEDICARE [id number] SP [id number] CIGNA HE[employer]CARE [id number] SP [id number] MEDICARE [id number] Cigna Commercial [id number] Self [id number] ANSI-Commercial [id number] Cigna Commercial [id number] Self [id number] Cigna Commercial [id number] Self [id number] Cigna Commercial Self [employer] [id number] SP [id number] [employer] P [id number] S [id number] CIGNA HE[employer]CARE P [id number] S [id number] Problems, Conditions, and Diagnoses Code Display Name Description Problem Type Effective Dates Data Source(s) 82034156 Essential hypertension Essential hypertension Problem 11/27/2019 12:00:00 AM EST [facility] ([facility], ) E11.69 Type 2 diabetes mellitus with other spec ified complication Type 2 diabetes mellitus with other spec Diagnosis 09/07/2020 09:12:35 AM EST [facility] Z91.89 Other specified personal risk factors, n ot elsewhere classified Other specified personal risk factors, n Diagnosis 09/07/2020 09:12:35 AM ES [facility] I10 Essential (primary) hypertension Essential (primary) h ypertension Diagnosis 09/07/2020 09:12:35 AM [facility] I48.0 Paroxysmal atrial fibrillation Paroxysmal atrial fibri llation Diagnosis 09/07/2020 09:12:35 AM EST [facility] I48.19 Other persistent atrial fibrillation Oth er persistent atrial fibrillation Diagnosis 06/08/2020 08:17:20 AM EDT [facility] Z79.899 Other usp (current) drug therapy O ther usp (current) drug therapy Diagnosis 05/11/2020 03:03:06 PM EDT [facility] Surgeries/Procedures Procedure Description Date Indications Data Source(s) ECG ROUTINE ECG W/LEAST 12 LDS W/I&R 01/07/2020 12:00: 00 AM EDT [facility] ([facility] Diabetic Foot Exam 12/30/2019 12:00:00 AM EST [facility] ([facility] Results ID Date Data Source [id number] 09/29/2020 09:00:00 AM EST [facility] ([facility] Name Value Range Interpretation Code Description Data Marycarmen rce(s) Supporting Document(s) Hemoglobin A1c/Hemoglobin.total in Blood 7.3 % 4.8-5.6 [facility] ([facility] A courtesy copy of this report has been sent to the patient, ID Date Data Source [id number] 09/30/2020 07:05:00 AM EST [facility] Name Value Range Interpretation Code Description Data Marycarmen rce(s) Supporting Document(s) Hemoglobin A1c 7.3 % 4.8-5.6 Above high normal [facility] Prediabetes: 5.7 - 6.4 Diabetes: >6.4 Glycemic control for adults with diabetes: <7.0 ID Date Data Source [id number] 07/29/2020 10:00:00 AM EDT [facility] Name Value Range Interpretation Code Description Data Marycarmen rce(s) Supporting Document(s) SARS coronavirus 2 RNA [facility] This lab was ordered by [facility] and reported by [facility]. ID Date Data Source [id number] 06/21/2020 08:32:00 AM EDT [facility] ([facility] Name Value Range Interpretation Code Description Data Marycarmen rce(s) Supporting Document(s) Microalbumin [Mass/volume] in Urine 119.8 ug/mL [facility] ([facility] ID Date Data Source [id number] 06/21/2020 08:32:00 AM EDT [facility] ([facility] Name Value Range Interpretation Code Description Data Marycarmen rce(s) Supporting Document(s) Hemoglobin A1c/Hemoglobin.total in Blood 8.2 % 4.8-5.6 [facility] ([facility] <content>Prediabetes: 5.7 - 6.4</content >
<content>Diabetes: >6.4</content>
<content>Glycemic control for adults with diabetes: <7.0</content>
<content></content> ID Date Data Source [id number] 06/21/2020 08:32:00 AM EDT [facility] ([facility] Name Value Range Interpretation Code Description Data Marycarmen rce(s) Supporting Document(s) Cholesterol [Mass/volume] in Serum or Plasma 129 mg/dL 100-199 [facility] ([facility] Triglyceride [Mass/volume] in Serum or Plasma 118 mg/dL 0-149 [facility] ([facility] Cholesterol in HDL [Mass/volume] in Serum or Plasma 40 mg/dL [facility] ([facility] Cholesterol in LDL [Mass/volume] in Serum or Plasma by calcu lation 65 mg/dL 0-99 [facility] ([facility] Effective June 28, 2020, [facility] is implementing [...] both fasting and non-fasting individuals. 1. Russ M, Sandra C, Sun Q, et al. A ne w equation for calculation of low-density lipoprotein cholesterol in patients with normolipidemia and/or hypertriglyceridemia. MARY Cardiol. 2019Dec 24. doi:10.1001/jamacardio.2020 .0013 Cholesterol in VLDL [Mass/volume] in Serum or Plasma by calc ulation 24 mg/dL 5-40 [facility] ([facility] Comment: Laboratory test result [facility] ([facility] ID Date Data Source [id number] 06/21/2020 08:32:00 AM EDT [facility] ([facility] Name Value Range Interpretation Code Description Data Marycarmen rce(s) Supporting Document(s) Glucose [Mass/volume] in Serum or Plasma 153 mg/dL 65-99 [facility] ([facility] Creatinine [Mass/volume] in Serum or Plasma 1.16 mg/dL 0.76-1.27 [facility] ([facility] Urea nitrogen [Mass/volume] in Serum or Plasma 16 mg/dL 8-27 [facility] ([facility] eGFR If Africn Am 74 mL/min/1.73 [facility] ([facility] eGFR If NonAfricn Am 64 mL/min/1.73 [facility] ([facility] Sodium [Moles/volume] in Serum or Plasma 135 mmol/L 134-144 [facility] ([facility] Urea nitrogen/Creatinine [Mass Ratio] in Serum or Plasma 14 1 0-24 [facility] ([facility] Potassium [Moles/volume] in Serum or Plasma 4.2 mmol/L 3.5-5.2 [facility] ([facility] Calcium [Mass/volume] in Serum or Plasma 9.6 mg/dL 8.6-10.2 [facility] ([facility] Chloride [Moles/volume] in Serum or Plasma 98 mmol/L 96-106 [facility] ([facility] Carbon dioxide, total [Moles/volume] in Serum or Plasma 25 mmol/L 20 -29 [facility] ([facility] Albumin [Mass/volume] in Serum or Plasma 4.4 g/dL 3.8-4.8 [facility] ([facility] Protein, Total 7.0 g/dL 6.0-8.5 [facility] ([facility] Globulin [Mass/volume] in Serum by calculation 2.6 g/dL 1.5-4.5 [facility] ([facility] Albumin/Globulin [Mass Ratio] in Serum or Plasma 1.7 1.2-2.2 [facility] ([facility] Bilirubin.total [Mass/volume] in Serum or Plasma 0.4 mg/dL 0.0-1.2 [facility] ([facility] Aspartate aminotransferase [Enzymatic activity/volume] in Serum or Plasma 28 IU/L 0-40 [facility] Alkaline phosphatase [Enzymatic activity/volume] in Serum or Plasma 60 IU/L 39-117 [facility] ([facility] Alanine aminotransferase [Enzymatic activity/volume] in Seru m or Plasma 35 IU/L 0-44 [facility] ([facility] ID Date Data Source [id number] 06/22/2020 04:05:00 AM EDT [facility] Name Value Range Interpretation Code Description Data Marycarmen rce(s) Supporting Document(s) Glucose 153 mg/dL 65-99 Above high normal [facility] BUN 16 mg/dL 8-27 [facility] Creatinine 1.16 mg/dL 0.76-1.27 [facility] eGFR If NonAfricn Am 64 mL/min/1.73 >59 [facility] eGFR If Africn Am 74 mL/min/1.73 >59 [facility] BUN/Creatinine Ratio 14 10-24 [facility] Sodium 135 mmol/L 134-144 [facility] Potassium 4.2 mmol/L 3.5-5.2 [facility] Chloride 98 mmol/L 96-106 [facility] Carbon Dioxide, Total 25 mmol/L 20-29 [facility] Calcium 9.6 mg/dL 8.6-10.2 [facility] Protein, Total 7.0 g/dL 6.0-8.5 [facility] Albumin 4.4 g/dL 3.8-4.8 [facility] Globulin, Total 2.6 g/dL 1.5-4.5 [facility] A/G Ratio 1.7 1.2-2.2 [facility] Bilirubin, Total 0.4 mg/dL 0.0-1.2 [facility] Alkaline Phosphatase 60 IU/L 39-117 [facility] AST (SGOT) 28 IU/L 0-40 [facility] ALT (SGPT) 35 IU/L 0-44 [facility] ID Date Data Source [id number] 06/22/2020 05:05:00 AM EDT [facility] Name Value Range Interpretation Code Description Data Marycarmen rce(s) Supporting Document(s) Hemoglobin A1c 8.2 % 4.8-5.6 Above high normal [facility] Prediabetes: 5.7 - 6.4 Diabetes: >6.4 Glycemic control for adults with diabetes: <7.0 ID Date Data Source [id number] 06/22/2020 11:06:00 AM EDT [facility] Name Value Range Interpretation Code Description Data Marycarmen rce(s) Supporting Document(s) Albumin, Urine 119.8 ug/mL Not Estab. [facility] ID Date Data Source [id number] 06/22/2020 04:05:00 AM EDT [facility] Name Value Range Interpretation Code Description Data Marycarmen rce(s) Supporting Document(s) Cholesterol, Total 129 mg/dL 100-199 [facility] Triglycerides 118 mg/dL 0-149 [facility] HDL Cholesterol 40 mg/dL >39 [facility] VLDL Cholesterol Terence 24 mg/dL 5-40 [facility] LDL Cholesterol Calc 65 mg/dL 0-99 [facility] Effective June 28, 2020, [facility] is implementing an improvedequation to calculate Low Density Lipoprotein Cholesterol (LDL-C)concentrations, to be used in all lipid panels that report calculatedLDL-C. This equation was developed through a collaboration with [facility] [employer] (NIH).[1] The NIHcalculation overcomes the limitations of the existing FriedewaldLDL-C equation and performs equally well in both fasting andnon- fasting individuals.1. Sandra Sams, Brianna Q, et al. A new equation forcalculation of low-density lipoprotein cholesterol in patients withn ormolipidemia and/or hypertriglyceridemia. MARY Cardiol.2019Dec 24. doi:10.1001/jamacardio.2020.0013 ID Date Data Source [id number] 04/19/2020 07:04:00 AM EDT [facility] ([facility] Name Value Range Interpretation Code Description Data Marycarmen rce(s) Supporting Document(s) Glucose [Mass/volume] in Capillary blood by Glucometer 214 mg/dL 80- 115 [facility] ([facility] Doctor Notified ID Date Data Source [id number] 04/16/2020 09:50:00 AM EDT [facility] Name Value Range Interpretation Code Description Data Marycarmen rce(s) Supporting Document(s) SARS CORONAVIRUS 2 RNA [facility] This lab was ordered by [facility] and reported by [facility]. ID Date Data Source [id number] 01/07/2020 01:10:00 PM EDT [facility] ([facility] Name Value Range Interpretation Code Description Data Marycarmen rce(s) Supporting Document(s) Phosphate [Moles/volume] in Serum or Plasma 3.2 mg/dL 2.5-4.9 [facility] Thyrotropin [Units/volume] in Serum or Plasma 1.800 uIU/ML 0.358-3.74 0 [facility] Thyroxine (T4) free [Mass/volume] in Serum or Plasma 0.98 ng/dL 0.76- 1.46 [facility] ([facility] Magnesium [Mass/volume] in Serum or Plasma 1.9 mg/dL 1.8-2.4 [facility] ID Date Data Source [id number] 01/07/2020 01:10:00 PM EDT [facility] ([facility] Name Value Range Interpretation Code Description Data Marycarmen [facility](s) Supporting Document(s) Alt/SGPT 38 U/L 12-78 [facility] Ast/Sgot 17 U/L 7-37 [facility] Bilirubin,Direct 0.1 mg/dL 0.0-0.2 [facility] ([facility] Bilirubin,Total 0.3 mg/dL 0.2-1.0 [facility] ([facility] Alkaline Phosphatase 69 U/L 45-117 [facility] ([facility] Total Protein 7.1 GM/DL 6.4-8.2 [facility] ([facility] Albumin/Globulin Ratio 1.15 1.00-1.93 [facility] ([facility] Albumin 3.8 GM/DL 3.2-5.2 [facility] ([facility] ID Date Data Source [id number] 01/07/2020 01:10:00 PM EDT [facility] ([facility] Name Value Range Interpretation Code Description Data [facility](s) Supporting Document(s) Blood Urea Nitrogen 19 mg/dL 7-18 [facility] ([facility] Glucose, Fasting 172 mg/dL 70-100 [facility] ([facility] Creatinine For GFR 1.03 mg/dL 0.70-1.30 [facility] ([facility] Potassium Serum 4.5 meq/L 3.5-5.1 [facility] ([facility] Sodium Level 138 meq/L 136-145 [facility] Glomerular Filtration Rate Laboratory test result [facility] ([facility] <content>Units are mL/min/1.73 m2</content>
<content></content>
<content>Chronic Kidney Disease Staging per NKF:</content>
<content></content>
<content>Stage I & II GFR >=60 Normal to Mildly Decreased</content>
<content>Stage III GFR 30- 59 Moderately Decreased</content>
<content>Stage IV GFR 15-29 Severely Decreased</content>
<content>Stage V GFR <15 Very Little GFR Left</content>
<content>ESRD GFR <15 on ACCOUNTING MACHINE SERVICER</content>
<content></content> Anion Gap 5 meq/L 8-16 [facility] Carbon Dioxide Level 28 meq/L 21-32 [facility] ([facility] Chloride Level 105 meq/L 98-107 [facility] Calcium Level 9.2 mg/dL 8.8-10.2 [facility] ID Date Data Source [id number] 01/07/2020 01:10:00 PM EDT [facility] ([facility] Name Value Range Interpretation Code Description Data Marycarmen rce(s) Supporting Document(s) CPK Creatine Phosphokinase 141 U/L 39-308 [facility] CK-MB Value Mass 4.0 ng/mL [facility] MB/CK Relative Index 2.84 [facility] ([facility] <content>DIAGNOSIS CRITERIA</content>
<content>MMB ng/ml Relative Index (RI)</content>
<content>NON-AMI < or = 5 N/A</content>
<content>CARDENAS ZONE > 5 < or = 4</content>
<content>AMI > 5 > 4</content>
<content></content> Troponin I 0.09 ng/mL [facility] <content>Troponin I Reference Interval f or Siemens Cherry Log LOCI:</content>
<content></content>
<content>99th Percentile= 0.00-0.045 ng/ml</content>
<content></content>
<content>Risk Stratification:</content>
<content><= 0.10 ng/ml Decreased Risk for Adverse Clinical</content>
<content>Events.</content>
<content>0.10-1.50 ng/ml Increased Risk for Adverse Clinical</content>
<content>Events. Evaluation of additional</content>
<content>criterion and/or repeat testing in 2-6</content>
<content>hours is suggested to rule out myocardial</content>
<content>damage.</content>
<content>>= 1.50 ng/ml Indicative of Myocardial Injury.</content>
<content></content> ID Date Data Source [id number] 01/07/2020 12:33:00 PM EDT [facility] ([facility] Name Value Range Interpretation Code Description Data Marycarmen rce(s) Supporting Document(s) White Blood Count 7.2 10 4.0-10.0 [facility] ([facility] Red Blood Count 5.22 10 4.30-6.10 [facility] Hemoglobin 16.0 g/dL 13.5-17.5 [facility] ([facility] Mean Corpuscular Hemoglobin 30.7 pg 27.0-33.0 [facility] ([facility] Mean Corpuscular Volume 91.4 fl 80.0-96.0 M [facility] ([facility] Hematocrit 47.7 % 42.0-52.0 [facility] ([facility] Platelet Count, Automated 168 10 150-450 [facility] ([facility] Red Cell Distribution Width 12.3 % 11.5-14.5 [facility] ([facility] Mean Corpuscular HGB Conc 33.5 g/dL 32.0-36.5 [facility] ([facility] Neutrophils % 56.5 % 36.0-66.0 [facility] ([facility] Lymph % 30.8 % 24.0-44.0 [facility] ([facility] Eos % 1.2 % 0.0-3.0 [facility] Baso % 0.6 % 0.0-1.0 [facility] Chase % 10.6 % 0.0-5.0 [facility] Immature Granulocyte % 0.3 % 0-3.0 [facility] ([facility] Nucleated Red Blood Cell % 0.0 % 0-0 [facility] ([facility] Neutrophils # 4.1 10 1.5-8.5 [facility] ([facility] Eos # 0.1 10 0.0-0.5 [facility] ([facility] Baso # 0.0 10 0.0-0.2 [facility] ([facility] Chase # 0.8 10 0.0-0.8 [facility] ([facility] Lymph # 2.2 10 1.5-5.0 [facility] ID Date Data Source [id number] 12/15/2019 08:33:00 AM EST [facility] ([facility] Name Value Range Interpretation Code Description Data Marycarmen rce(s) Supporting Document(s) Creatinine [Mass/volume] in Serum or Plasma 1.20 mg/dL 0.76-1.27 [facility] ([facility] A courtesy copy of this report has been sent to [phone] Urea nitrogen [Mass/volume] in Serum or Plasma 20 mg/dL 8-27 [facility] ([facility] A courtesy copy of this report has been sent to [phone] Glucose [Mass/volume] in Serum or Plasma 183 mg/dL 65-99 [facility] ([facility] A courtesy copy of this report has been sent to [phone] eGFR If NonAfricn Am 61 mL/min/1.73 [facility] ([facility] A courtesy copy of this report has been sent to [phone] Urea nitrogen/Creatinine [Mass Ratio] in Serum or Plasma 17 1 0-24 [facility] ([facility] A courtesy copy of this report has been sent to [phone] eGFR If Africn Am 71 mL/min/1.73 [facility] ([facility] A courtesy copy of this report has been sent to [phone] Chloride [Moles/volume] in Serum or Plasma 101 mmol/L 96-106 [facility] ([facility] A courtesy copy of this report has been sent to [phone] Potassium [Moles/volume] in Serum or Plasma 4.8 mmol/L 3.5-5.2 [facility] ([facility] A courtesy copy of this report has been sent to [phone] Sodium [Moles/volume] in Serum or Plasma 140 mmol/L 134-144 [facility] ([facility] A courtesy copy of this report has been sent to [phone] Carbon dioxide, total [Moles/volume] in Serum or Plasma 22 mmol/L 20 -29 [facility] ([facility] A courtesy copy of this report has been sent to [phone] Protein, Total 7.1 g/dL 6.0-8.5 [facility] ([facility] A courtesy copy of this report has been sent to [phone] Calcium [Mass/volume] in Serum or Plasma 9.7 mg/dL 8.6-10.2 [facility] ([facility] A courtesy copy of this report has been sent to [phone] Albumin [Mass/volume] in Serum or Plasma 4.6 g/dL 3.8-4.8 [facility] ([facility] A courtesy copy of this report has been sent to [phone] Globulin [Mass/volume] in Serum by calculation 2.5 g/dL 1.5-4.5 [facility] ([facility] A courtesy copy of this report has been sent to [phone] Albumin/Globulin [Mass Ratio] in Serum or Plasma 1.8 1.2-2.2 [facility] ([facility] A courtesy copy of this report has been sent to [phone] Bilirubin.total [Mass/volume] in Serum or Plasma 0.3 mg/dL 0.0-1.2 [facility] ([facility] A courtesy copy of this report has been sent to [phone] Alkaline phosphatase [Enzymatic activity/volume] in Serum or Plasma 57 IU/L 39-117 [facility] ([facility] A courtesy copy of this report has been sent to [phone] Aspartate aminotransferase [Enzymatic activity/volume] in Serum or Plasma 24 IU/L 0-40 [facility] ([facility] A courtesy copy of this report has been sent to [phone] ID Date Data Source [id number] 12/15/2019 08:33:00 AM EST [facility] ([facility] Name Value Range Interpretation Code Description Data Marycarmen rce(s) Supporting Document(s) Prostate specific Ag [Mass/volume] in Serum or Plasma Labora tory test result 0.0-4.0 [facility] ([facility] A courtesy copy of this report has been sent to [phone] ID Date Data Source [id number] 12/15/2019 08:33:00 AM EST [facility] ([facility] Name Value Range Interpretation Code Description Data Marycarmen rce(s) Supporting Document(s) Hemoglobin A1c/Hemoglobin.total in Blood 6.7 % 4.8-5.6 [facility] ([facility] A courtesy copy of this report has been sent to [phone] ID Date Data Source [id number] 12/15/2019 08:33:00 AM EST [facility] ([facility] Name Value Range Interpretation Code Description Data Marycarmen rce(s) Supporting Document(s) Cholesterol in HDL [Mass/volume] in Serum or Plasma 43 mg/dL [facility] ([facility] A courtesy copy of this report has been sent to [phone] Cholesterol [Mass/volume] in Serum or Plasma 154 mg/dL 100-199 [facility] ([facility] A courtesy copy of this report has been sent to [phone] Triglyceride [Mass/volume] in Serum or Plasma 141 mg/dL 0-149 [facility] ([facility] A courtesy copy of this report has been sent to [phone] Comment: Laboratory test result [facility] ([facility] A courtesy copy of this report has been sent to [phone] Cholesterol in VLDL [Mass/volume] in Serum or Plasma by calc ulation 28 mg/dL 5-40 [facility] ([facility] A courtesy copy of this report has been sent to [phone] Cholesterol in LDL [Mass/volume] in Serum or Plasma by calcu lation 83 mg/dL 0-99 [facility] ([facility] A courtesy copy of this report has been sent to [phone] ID Date Data Source [id number] 12/16/2019 04:05:00 AM EST [facility] Name Value Range Interpretation Code Description Data Marycarmen rce(s) Supporting Document(s) Glucose 183 mg/dL 65-99 Above high normal [facility] BUN 20 mg/dL 8-27 [facility] Creatinine 1.20 mg/dL 0.76-1.27 [facility] eGFR If NonAfricn Am 61 mL/min/1.73 >59 [facility] eGFR If Africn Am 71 mL/min/1.73 >59 [facility] BUN/Creatinine Ratio 17 10-24 [facility] Sodium 140 mmol/L 134-144 [facility] Potassium 4.8 mmol/L 3.5-5.2 [facility] Chloride 101 mmol/L 96-106 [facility] Carbon Dioxide, Total 22 mmol/L 20-29 [facility] Calcium 9.7 mg/dL 8.6-10.2 [facility] Protein, Total 7.1 g/dL 6.0-8.5 [facility] Albumin 4.6 g/dL 3.8-4.8 [facility] Please no te reference interval change Globulin, Total 2.5 g/dL 1.5-4.5 [facility] A/G Ratio 1.8 1.2-2.2 [facility] Bilirubin, Total 0.3 mg/dL 0.0-1.2 [facility] Alkaline Phosphatase 57 IU/L 39-117 [facility] AST (SGOT) 24 IU/L 0-40 [facility] ID Date Data Source [id number] 12/16/2019 05:05:00 AM EST [facility] Name Value Range Interpretation Code Description Data Marycarmen rce(s) Supporting Document(s) Hemoglobin A1c 6.7 % 4.8-5.6 Above high normal [facility] Prediabetes: 5.7 - 6.4 Diabetes: >6.4 Glycemic control for adults with diabetes: <7.0 ID Date Data Source [id number] 12/16/2019 06:06:00 AM EST [facility] Name Value Range Interpretation Code Description Data Marycarmen rce(s) Supporting Document(s) Prostate Specific Ag, Serum 0.0-4.0 [facility] ECLIA methodology. According to th e [employer], Serum PSA shoulddecrease and remain at undetectable levels after radicalprostatectomy. The AUA defines biochemical recurrence as an initialPSA value 0.2 ng/mL or greater followed by a subsequent confirmatoryPSA value 0.2 ng/mL or greater.Values obtained with different assay methods or kits cannot be usedinterchangeably. Results cannot be interpreted as absolute evidenceof the presence or absence of malignant disease. ID Date Data Source [id number] 12/16/2019 04:05:00 AM EST [facility] Name Value Range Interpretation Code Description Data Marycarmen rce(s) Supporting Document(s) Cholesterol, Total 154 mg/dL 100-199 [facility] Triglycerides 141 mg/dL 0-149 [facility] HDL Cholesterol 43 mg/dL >39 [facility] VLDL Cholesterol Terence 28 mg/dL 5-40 [facility] LDL Cholesterol Calc 83 mg/dL 0-99 [facility] Procedure Social History Code Duration Value Status Description Data Source(s ) Smoking 10/04/2020 12:00:00 AM EST Patient is a former smoker completed Patient is a former smoker [facility] Smoking 07/15/2020 12:00:00 AM EDT Patient is a former smoker completed [facility] is a [facility], [facility] Vital Signs ID Date Data Source [id number] Name Value Range Interpretation Code Description Data Source(s) Body mass index (BMI) [Ratio] 30.3 kg/m2 30.3 k g/m2 [facility] [place] body weight 196 [lb_av] 196 [lb_av] [facility] ([facility] Oxygen saturation in Arterial blood by Pulse oximetry 98 % 98 % [facility] Body weight 242.25 [lb_av] 242.25 [lb_av] [facility] ([facility] Body height 75 [in_i] 75 [in_i] [facility] 6'3" Respiratory rate 17 /min 17 /min [facility] ( [facility] Body temperature 97.0 [degF] 97.0 [degF] [facility] Heart rate 61 /min 61 /min [facility] Diastolic blood pressure 79 mm[Hg] 79 mm[Hg] [facility] Systolic blood pressure 187 mm[Hg] 187 mm[Hg] M [facility] ([facility] Diastolic blood pressure 76 mm[Hg] 76 mm[Hg] [facility] Systolic blood pressure 212 mm[Hg] 212 mm[Hg] M [facility] ([facility] Body surface area Derived from formula 2.36 m2 2.36 m2 [facility] Body weight 110.338 kg 110.338 kg [facility] ([facility]) [place] body weight 190 [lb_av] 190 [lb_av] [facility] ([facility]) Body mass index (BMI) [Ratio] 31.2 kg/m2 31.2 k g/m2 [facility] ([facility]) Body weight 243.25 [lb_av] 243.25 [lb_av] [facility] ([facility]) Body height 74 [in_i] 74 [in_i] [facility] ([facility]) 6'2" Body temperature 96.1 [degF] 96.1 [degF] [facility] ([facility]) Oxygen saturation in Arterial blood by Pulse oximetry 97 % 97 % [facility] ([facility]) Heart rate 63 /min 63 /min [facility] ([facility]) Diastolic blood pressure 80 mm[Hg] 80 mm[Hg] [facility] ([facility]) Recheck: 154/80 Systolic blood pressure 164 mm[Hg] 164 mm[Hg] M [facility] ([facility]) Recheck: 154/80 Body surface area Derived from formula 2.37 m2 2.37 m2 [facility] ([facility]) Body weight 111.642 kg 111.642 kg [facility] ([facility]) [place] body weight 190 [lb_av] 190 [lb_av] [facility] Body mass index (BMI) [Ratio] 31.6 kg/m2 31.6 k g/m2 [facility] ([facility]) Body weight 246.12 [lb_av] 246.12 [lb_av] [facility] Body height 74 [in_i] 74 [in_i] [facility] ([facility]) 6'2" Body temperature 97.4 [degF] 97.4 [degF] [facility] ([facility]) Oxygen saturation in Arterial blood by Pulse oximetry 98 % 98 % [facility] ([facility]) Heart rate 81 /min 81 /min [facility], [facility] Diastolic blood pressure 88 mm[Hg] 88 mm[Hg] [facility] ([facility], ) [employer] Recheck: 152/78 Systolic blood pressure 166 mm[Hg] 166 mm[Hg] M [facility] ([facility], ) [employer] Recheck: 152/78 Body temperature 97.5 [degF] 97.5 [degF] [facility] Heart rate 62 /min 62 /min [facility] Diastolic blood pressure 82 mm[Hg] 82 mm[Hg] [facility] home 132/66 Systolic blood pressure 194 mm[Hg] 194 mm[Hg] [facility] home 132/66 Diastolic blood pressure 93 mm[Hg] 93 mm[Hg] [facility] Systolic blood pressure 204 mm[Hg] 204 mm[Hg] [facility] ([facility] Body mass index (BMI) [Ratio] 30.5 kg/m2 30.5 k g/m2 [facility] ([facility] [place] body weight 196 [lb_av] 196 [lb_av] [facility] ([facility] Oxygen saturation in Arterial blood by Pulse oximetry 98 % 98 % [facility] Body weight 244.12 [lb_av] 244.12 [lb_av] [facility] ([facility] Body height 75 [in_i] 75 [in_i] [facility] 6'3" Respiratory rate 17 /min 17 /min [facility] ( [facility] Body weight 107.503 kg 107.503 kg [facility] ([facility]) Body mass index (BMI) [Ratio] 30.4 kg/m2 30.4 k g/m2 [facility] ([facility]) Body weight 237.00 [lb_av] 237.00 [lb_av] [facility] T ([facility]) Body height 74 [in_i] 74 [in_i] [facility] ([facility]) 6'2" Diastolic blood pressure 84 mm[Hg] 84 mm[Hg] [facility] ([facility]) Systolic blood pressure 132 mm[Hg] 132 mm[Hg] M [facility] ([facility]) Body mass index (BMI) [Ratio] 29.9 kg/m2 29.9 k g/m2 [facility] [place] body weight 196 [lb_av] 196 [lb_av] [facility] ([facility] Oxygen saturation in Arterial blood by Pulse oximetry 97 % 97 % [facility] ([facility] Body weight 239.00 [lb_av] 239.00 [lb_av] [facility] ([facility] Body height 75 [in_i] 75 [in_i] [facility] ([facility] 6'3" Respiratory rate 16 /min 16 /min [facility] Body temperature 98.9 [degF] 98.9 [degF] [facility] Heart rate 102 /min 102 /min [facility] ([facility] Diastolic blood pressure 71 mm[Hg] 71 mm[Hg] [facility] Systolic blood pressure 142 mm[Hg] 142 mm[Hg] [facility] Diastolic blood pressure 87 mm[Hg] 87 mm[Hg] [facility] Systolic blood pressure 149 mm[Hg] 149 mm[Hg] M [facility] ([facility] Body height 75 [in_i] 75 [in_i] [facility] ([facility] 6'3" Respiratory rate 16 /min 16 /min [facility] ( [facility] Body temperature 98.2 [degF] 98.2 [degF] [facility] Heart rate 85 /min 85 /min [facility] Diastolic blood pressure 73 mm[Hg] 73 mm[Hg] [facility] Systolic blood pressure 137 mm[Hg] 137 mm[Hg] M [facility] ([facility] Body mass index (BMI) [Ratio] 30.4 kg/m2 30.4 k g/m2 [facility] ([facility] Oxygen saturation in Arterial blood by Pulse oximetry 97 % 97 % [facility] ([facility] Body weight 243.19 [lb_av] 243.19 [lb_av] [facility] ([facility] Body mass index (BMI) [Ratio] 30.3 kg/m2 30.3 k g/m2 [facility] ([facility] Oxygen saturation in Arterial blood by Pulse oximetry 99 % 99 % [facility] ([facility] Body weight 242.38 [lb_av] 242.38 [lb_av] [facility] ([facility] Body height 75 [in_i] 75 [in_i] [facility] ([facility] 6'3" Respiratory rate 18 /min 18 /min [facility] ( [facility] Body temperature 97.3 [degF] 97.3 [degF] [facility] ([facility] Heart rate 115 /min 115 /min [facility] ([facility] Diastolic blood pressure 78 mm[Hg] 78 mm[Hg] [facility] ([facility] ra Systolic blood pressure 180 mm[Hg] 180 mm[Hg] M [facility] ([facility] ra Diastolic blood pressure 92 mm[Hg] 92 mm[Hg] [facility] ([facility] ra Systolic blood pressure 194 mm[Hg] 194 mm[Hg] M [facility] ([facility] ra Body mass index (BMI) [Ratio] 29.5 kg/m2 29.5 k g/m2 [facility] ([facility] Oxygen saturation in Arterial blood by Pulse oximetry 98 % 98 % [facility] ([facility] Body weight 236.38 [lb_av] 236.38 [lb_av] [facility] ([facility] Body height 75 [in_i] 75 [in_i] [facility] ([facility] 6'3" Respiratory rate 15 /min 15 /min [facility] ( [facility] Body temperature 97.6 [degF] 97.6 [degF] [facility] ([facility] Heart rate 75 /min 75 /min [facility] ([facility] Diastolic blood pressure 78 mm[Hg] 78 mm[Hg] [facility] ([facility] recheck Systolic blood pressure 183 mm[Hg] 183 mm[Hg] Vesna BARRIOS ([facility] recheck Diastolic blood pressure 94 mm[Hg] 94 mm[Hg] [facility] ([facility] Systolic blood pressure 177 mm[Hg] 177 mm[Hg] [facility] Body weight 108.864 kg 108.864 kg [facility] ([facility], ) Body mass index (BMI) [Ratio] 30.8 kg/m2 30.8 k g/m2 [facility] ([facility], ) Body weight 240.00 [lb_av] 240.00 [lb_av] [facility] ([facility], ) Body height 74 [in_i] 74 [in_i] [facility] ([facility], ) 6'2" Diastolic blood pressure 72 mm[Hg] 72 mm[Hg] [facility] ([facility], ) Systolic blood pressure 158 mm[Hg] 158 mm[Hg] [facility], )
--- OUTSIDE RECORDS SUMMARY | 2020-11-09 17:30 | CCD | Continuity of Care Document ---
Author Author Nocturnal Oximetry, Kip Robles Organization Unknown Address [address] [place] [id number] Phone Unavailable Care Team Providers Care [facility] Fisherman Name Role Phone Iwona Royce AUTM [phone] Clay Hagan AUTM [phone] Erika Tan N.P. AUTM [phone] Valente Espino M.D. AUTM [phone] Problems Active Problems Provider Date Essential hypertension Onset: 11/27/2019 Social History Type Date Description Comments Sex Unknown ETOH Use Denies alcohol use Tobacco Use Start: Unknown End: Patient is a former smoker 1-2ppd Smoking Status Reviewed: 07/15/20 Patient is a former smoker 1- 2ppd Allergies, Adverse Reactions, Alerts Active Allergies Reaction Severity Comments Date Amoxicillin 10/08/2014 Augmentin 11/27/2019 Inactive Allergies NKDA 07/12/2011 Medications Active Medications SIG Qnty Indications Ordering Provide r Date BIPAP Device 10/7cm lcw Kathrine Monahan, N.P. 08/03/2020 Suprep Bowel Prep Kit 17.5-3.13-1.6GM/177ML Solution take per doctor's bowel prep instructions. 354ml Z12.1 1 Joni Dozier MD 12/03/2019 Milk Of Magnesia 1200mg/15ML Suspe nsion take 45 milliliters by mouth as directed on colonoscopy prep sheet. Z12.11 Joni Dozier MD 12/03/2019 Simvastatin 10mg Tablets Tim y Unknown Metformin HCL 1000mg Tablets bid Unknown Aspir-[address] qd Unknown Fish Oil 1200mg Capsules 1 by mouth twice a day Unknown Multivitamins Capsules Daily Unknown Niacin 500mg Tablets 1 by diogo th daily Unknown Xarelto 20mg Tablets Daily Unknown Lisinopril 40mg Tablets 1 tab by mouth every day Unknown Amiodarone HCL 200mg Tablets 1 tab by mouth every day Unknown Hydrochlorothiazide 25mg Tablets 1 tab by mouth every day Unknown Jardiance 10mg Tablets daily Unknown Immunizations CPT Code Status Date Vaccine Lot # [id number] Given 07/09/2019 Afluria, Quadrivalent, 0.5ml , [facility]# [id number] Vital Signs Date Vital Result Comment 07/15/2020 8:40am BP Systolic 164 mmHg Recheck: 154/ 80 BP Diastolic 80 mmHg Recheck: 154/80 Heart Rate 63 /min O2 % BldC Oximetry 97 % Body Temperature 96.1 F Height 74 inches 6'2" Weight 243.25 lb BMI (Body Mass Index) 31.2 kg/m2 [place] Body Weight 190 lb Weight 110.338 kg BSA (Body Surface Area) 2.36 m2 06/30/2020 2:40pm 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 G47.33 Obstructive sleep apnea (adult) (pediatr ic) Office Visit 06/30/2020 2:45p [facility] Shun Monahan, N.P. R06.83 Snoring R40.0 Somnolence Assessments Date Code Description Provider 08/03/2020 Z12.11 Encounter for screening for joel gnant neoplasm of colon Joni Dozier MD 08/03/2020 Z86.010 Personal history of colonic poly ps Joni Dozier MD 08/03/2020 K57.30 Diverticulosis of la rge intestine without perforation or abscess without bleeding Joni Dozier MD 07/15/2020 G47.33 Obstructive sleep apnea (adult) (pediatric) Kathrine Monahan, N.P. 06/30/2020 R06.83 Snoring Kathrine Monahan, N .P. 06/30/2020 R40.0 Somnolence Kathrine Monahan N .P. 04/01/2020 Z12.11 Encounter for screening for joel gnant neoplasm of colon KASANDRA Manzanares 04/01/2020 Z86.010 Personal history of colonic poly ps KASANDRA Manzanares Plan of Treatment Future Appointment(s):* 09/29/2020 9:45 am - Kathrine Monahan[facility] 07/15/2020 - Kathrine Monahan N.P.* G47.33 Obstructive sleep apnea (adult) (pediatric) * * Comments:* 1. Given a diagnosis of ANGEL, the patient warrants a CPAP titration study.2. We discussed insurance guidelines for CPAP compliance and the patient was advised to call with any difficulties tolerating CPAP. * Follow up:* 1. Follow up eight weeks after titration with a download to monitor compliance and tolerance of pressure therapy. Functional Status Functional Condition Comment Date Status Independent with all ADL's Activ e Mental Status Mental Condition Comment Date Status Cognitive ability not impaired A ctive Referrals Description No Information Available
[2020-11-09] MEDS ORDERED: NS 1,000 ML IV ONE (19:00)
[2020-11-09 19:10] LABS: BASO % 0.3 % (0.0-1.0); EOS # 0.1 10^3/uL (0.0-0.5); EOS % 0.9 % (0.0-3.0); HEMATOCRIT 45.5 % (42.0-52.0); HEMOGLOBIN 14.7 g/dl (13.5-17.5); LYMPH # 1.6 10^3/uL (1.5-5.0); LYMPH % 20.2 % (24.0-44.0); MEAN CORPUSCULAR HEMOGLOBIN 29.9 pg (27.0-33.0); MEAN CORPUSCULAR HGB CONC 32.3 g/dl (32.0-36.5); MEAN CORPUSCULAR VOLUME 92.5 fl (80.0-96.0); MONO # 0.7 10^3/uL (0.0-0.8); NEUTROPHILS # 5.3 10^3/uL (1.5-8.5); NEUTROPHILS % 69.3 % (36.0-66.0); PLATELET COUNT, AUTOMATED 164 10^3/uL (150-450); RED BLOOD COUNT 4.92 10^6/uL (4.30-6.10); WHITE BLOOD COUNT 7.7 10^3/uL (4.0-10.0)
[2020-11-09] MEDS ORDERED: ISOVUE-370 76% 100ML VIAL As Ordered ONE (19:21)
[2020-11-09 19:35] LABS: ALBUMIN 3.9 GM/DL (3.2-5.2); ALT/SGPT 37 U/L (12-78); BILIRUBIN,DIRECT < 0.1 MG/DL (0.0-0.2); BILIRUBIN,TOTAL 0.4 MG/DL (0.2-1.0); LIPASE 173 U/L (73-393)
[2020-11-09 19:46] LABS: INR 1.1; PROTHROMBIN TIME 14.4 SECONDS (12.5-14.3)
[2020-11-09 19:47] LABS: PARTIAL THROMBOPLASTIN TIME 35.2 SECONDS (24.2-38.5)
--- NOTE | 2020-11-09 20:45 | REPVR ---
PROCEDURE INFORMATION: Exam: CT Abdomen And Pelvis With Contrast Exam date and time: 11/09/2020 7:30 PM Age: 70 years old Clinical indication: Abdominal pain; Generalized; Additional info: Rectal bleeding, HX divertic, on xarelto TECHNIQUE: Imaging protocol: Computed tomography of the abdomen and pelvis with intravenous contrast. Radiation optimization: All CT scans at this facility use at least one of these dose optimization techniques: automated exposure control; mA and/or kV adjustment per patient size (includes targeted exams where dose is matched to clinical indication); or iterative reconstruction. Contrast material: ISOVUE 370; Contrast volume: 100 ml; Contrast route: INTRAVENOUS (IV); COMPARISON: No relevant prior studies available. FINDINGS: Lungs: The lung bases appear clear. Heart: The heart is normal in size and there is no pericardial effusion. Liver: Normal appearing liver. Gallbladder and bile ducts: Normal gallbladder. Pancreas: Normal appearing pancreas. Spleen: Normal appearing spleen. Adrenal glands: Normal adrenal glands. Kidneys and ureters: There is enhancement of both kidneys. There is a large cyst lower pole right kidney and a smaller cysts left kidney. There is no evidence of hydronephrosis. Stomach and bowel: There is thickening of the bowel wall of the sigmoid colon with numerous large diverticula. Within the lumen of the mid sigmoid colon there is high density material probably acute blood mixed with contrast. Appendix: Normal appearing appendix. Intraperitoneal space: There is no evidence of pneumoperitoneum. There is no evidence of free fluid in the abdomen. There is no evidence of mesenteric mass. Vasculature: There is opacification of the SMA. There is opacification of both renal arteries. The aorta appears normal in size. There is calcification with atherosclerotic plaque formation of the aorta. Lymph nodes: There is no evidence of lymphadenopathy. Urinary bladder: Unremarkable as visualized. Bones/joints: There is mild posterior disc protrusion L5-S1 and also mild anterior osteophyte formation thoracic and lumbar spine. Soft tissues: Unremarkable. Other findings: There is opacification of the SMV. IMPRESSION: There is thickening of the bowel wall of the sigmoid colon with numerous large diverticula. High density material within the lumen of the mid sigmoid colon is probably blood mixed with contrast and representing a an area of acute bleeding. Electronically signed by: James Solis On 11/09/2020 20:46:16 PM
--- OUTSIDE RECORDS SUMMARY | 2020-11-09 20:54 | CCD ---
Author Author [facility] Organization [facility] Address Unknown Phone Unavailable Care Team Providers Care National Coverage Specialist Name Role Phone Valente Espino MD Unavailable [...] Unavailable Valente Espino MD Unavailable Unavailable ALEKSEY, KSENIA HUSSEIN TIE MAKER-C Unavailable Unavailable ALEKSEY, KSENIA HUSSEIN TIE MAKER-C Unavailable Unavailable ALEKSEY, KSENIA HUSSEIN TIE MAKER-C Unavailable Unavailable ALEKSEY, KSENIA HUSSEIN TIE MAKER-C Unavailable Unavailable ALEKSEY, KSENIA HUSSEIN TIE MAKER-C Unavailable Unavailable ALEKSEY, KSENIA HUSSEIN TIE MAKER-C Unavailable Unavailable ALEKSEY, KSENIA HUSSEIN TIE MAKER-C Unavailable Unavailable ALEKSEY, KSENIA HUSSEIN TIE MAKER-C Unavailable Unavailable ALEKSEY, KSENIA HUSSEIN TIE MAKER-C Unavailable Unavailable ALEKSEY, KSENIA HUSSEIN TIE MAKER-C Unavailable Unavailable ALEKSEY, KSENIA HUSSEIN TIE MAKER-C Unavailable Unavailable ALEKSEY, KSENIA HUSSEIN TIE MAKER-C Unavailable Unavailable ALEKSEY, KSENIA HUSSEIN TIE MAKER-C Unavailable Unavailable ALEKSEY, KSENIA HUSSEIN TIE MAKER-C Unavailable Unavailable ALEKSEY, KSENIA HUSSEIN TIE MAKER-C Unavailable Unavailable Pleskach, Erika TIE MAKER Unavailable Unavailable Pleskach, Erika TIE MAKER Unavailable Unavailable Pleskach, Erika TIE MAKER Unavailable Unavailable Pleskach, Erika TIE MAKER Unavailable Unavailable Pleskach, Erika TIE MAKER Unavailable Unavailable Pleskach, Erika TIE MAKER Unavailable Unavailable Pleskach, Erika TIE MAKER Unavailable Unavailable Pleskach, Erika TIE MAKER Unavailable Unavailable Pleskach, Erika TIE MAKER Unavailable Unavailable Pleskach, Erika TIE MAKER Unavailable Unavailable Pleskach, Erika TIE MAKER Unavailable Unavailable Pleskach, Erika TIE MAKER Unavailable Unavailable Pleskach, Erika TIE MAKER Unavailable Unavailable Pleskach, Erika TIE MAKER Unavailable Unavailable Pleskach, Erika TIE MAKER Unavailable Unavailable Pleskach, Erika TIE MAKER Unavailable Unavailable Pleskach, Erika TIE MAKER Unavailable Unavailable Pleskach, Erika TIE MAKER Unavailable Unavailable Pleskach, Erika TIE MAKER Unavailable Unavailable Pleskach, Erika TIE MAKER Unavailable Unavailable Pleskach, Erika TIE MAKER Unavailable Unavailable Pleskach, Erika TIE MAKER Unavailable Unavailable Pleskach, Erika TIE MAKER Unavailable Unavailable Pleskach, Erika TIE MAKER Unavailable Unavailable Pleskach, Erika TIE MAKER Unavailable Unavailable Pleskach, Erika TIE MAKER Unavailable Unavailable Pleskach, Erika TIE MAKER Unavailable Unavailable Pleskach, Erika TIE MAKER Unavailable Unavailable Osteen, N Clay PHARMACY ASSISTANT Unavailable Unavailable Bentley, N Clay PHARMACY ASSISTANT Unavailable Unavailable Osteen, N Clay PHARMACY ASSISTANT Unavailable Unavailable Bentley, N Clay PHARMACY ASSISTANT Unavailable Unavailable Bentley, N Clay PHARMACY ASSISTANT Unavailable Unavailable Osteen, N Clay PHARMACY ASSISTANT Unavailable Unavailable Osteen, N Clay PHARMACY ASSISTANT Unavailable Unavailable Osteen, N Clay PHARMACY ASSISTANT Unavailable Unavailable Bentley, N Clay PHARMACY ASSISTANT Unavailable Unavailable Osteen, N Clay PHARMACY ASSISTANT Unavailable Unavailable Osteen, N Clay PHARMACY ASSISTANT Unavailable Unavailable Bentley, N Clay PHARMACY ASSISTANT Unavailable Unavailable Osteen, N Clay PHARMACY ASSISTANT Unavailable Unavailable Bentley, N Clay PHARMACY ASSISTANT Unavailable Unavailable Osteen, N Clay PHARMACY ASSISTANT Unavailable Unavailable Bentley, N Clay PHARMACY ASSISTANT Unavailable Unavailable Osteen, N Clay PHARMACY ASSISTANT Unavailable Unavailable Osteen, N Clay PHARMACY ASSISTANT Unavailable Unavailable Osteen, N Clay PHARMACY ASSISTANT Unavailable Unavailable Bentley, N Clay PHARMACY ASSISTANT Unavailable Unavailable Osteen, N Clay PHARMACY ASSISTANT Unavailable Unavailable Osteen, N Clay PHARMACY ASSISTANT Unavailable Unavailable Bentley, N Clay PHARMACY ASSISTANT Unavailable Unavailable Osteen, N Clay PHARMACY ASSISTANT Unavailable Unavailable Bentley, N Clay PHARMACY ASSISTANT Unavailable Unavailable Osteen, N Clay PHARMACY ASSISTANT Unavailable Unavailable Osteen, N Clay PHARMACY ASSISTANT Unavailable Unavailable Bentley, N Clay PHARMACY ASSISTANT Unavailable Unavailable Osteen, N Clay PHARMACY ASSISTANT Unavailable Unavailable Osteen, N Clay PHARMACY ASSISTANT Unavailable Unavailable Re-disclosure Warning The records that [...] is protected by Article 27-F of the [facility] Public Health law. If you continue you may have access to information: Regarding HIV / AIDS; Provided by facilities licensed or operated by the [facility] Office of Mental Health; or Provided by the [facility] Office for People With Developmental Disabilities. If such information is present, then the following [facility] mandated warning applies: This information has [...] law may result in a fine or chcf sentence or both. A general authorization for [...] Data Source(s ) Outpatient Attender: Erika Tan [facility] Main Office 10/04/2020 0 7:00:00 AM EST [facility] ([facility] Outpatient Attender: Valente AMARALJENNA-SJP.JENNA 08/29 12:00:00 AM EST [facility] Outpatient Attender: HUSSEIN ALEKSEY HOBBS-C Jimena/Phelps/Tarik/R eindl 07/15/2020 08:45:00 AM EDT [facility] ([facility] Outpatient Attender: HUSSEIN ALEKSEY HOBBS-C Jimena/Phelps/Tarik/R eindl 06/30/2020 02:45:00 PM EDT [facility] ([facility]) Outpatient Attender: Erika HOBBS Main Office 06/29/2020 0 8:00:00 AM EDT [facility] ([facility] Outpatient Attender: Valente ZAMORASJMargaret.JENNA 05/29 12:00:00 AM EDT [facility] Outpatient Attender: Valente CUNNINGHAM-SJMargaret.JENNA 04/29 12:00:00 AM EDT - 05/25/2020 02:33:41 PM EDT [facility] Outpatient Attender: Clay ZAMORASJEveliaJENNA 05/11/2020 12 :00:00 AM EDT [facility] Outpatient Attender: Clay MARTEJENNA 020 12:00:00 AM EDT - 04/26/2020 11:23:06 AM EDT [facility] Outpatient Attender: Clay MARTEJENNA 020 12:00:00 AM EDT - 03/29/2020 12:07:55 PM EDT [facility] Outpatient Attender: Erika HOBBS Main Office 03/18/2020 0 1:00:00 PM EDT [facility] ([facility] Outpatient Attender: Clay Hagan NP SJP.JENNA-SJP.JENNA 020 12:36:18 PM EDT - 02/23/2020 01:44:01 PM EDT [facility] Outpatient Attender: Clay Hagan NP SJP.JENNA-SJP.JENNA 020 12:00:00 AM EDT - 01/27/2020 11:43:00 AM EDT [address], [facility] [address] 01/14/2020 12:00:00 AM EDT eCW1 ([facility]) [address], [facility] [address] 01/14/2020 12:00:00 AM EDT eC1 ([facility]) Outpatient Attender: Erika Tan [facility] Main Office 01/12/2020 1 1:30:00 AM EDT [facility] ([facility] Outpatient Attender: Erika Tan [facility] Main Office 01/07/2020 1 1:00:00 AM EDT [facility] ([facility] Immunizations Vaccine Date Status Description Data Source(s) New in 2012. IIV4 07/08/2020 12:01:00 PM EDT completed [facility] ([facility] Medications Medication Brand Name Start Date Product Form Dose Route Admi nistrative Instructions Pharmacy Instructions Status Indications Reaction Description Data Source(s) BIPAP 08/03/2020 12:00:00 AM EDT active [facility] ([facility], ) empagliflozin 10 MG Oral [...] EVERY DAY AT 6 P.M. SOLD: 01/08/2020 [facility] Metoprolol Tartrate 25 MG Oral Tablet [...] 12:00:00 AM EST ORAL active M EDENT ([facility], ) Suprep Bowel Prep Kit Suprep Bowel Prep Kit 12/03/2019 12:00:00 AM EST active [facility] ([facility], ) Insurance Providers Payer name Policy type / Coverage type Policy ID Covered green party ID Covered green party's relationship to crowell Policy Crowell Plan Information [facility] [id number] [facility] [id number] SP A [id number] MEDICARE [id number] SP [id number] COMMERCIAL GENERIC [id number] Brianna A [id number] MEDICARE [id number] Brianna [id number] J21 MEDICARE [id number] SP [id number] J21 [employer] [id number] SP [id number] MEDICARE [id number] SP [id number] [id number] Cigna Commercial [id number] Self [id number] ANSI-Commercial [id number] Cigna Commercial [id number] Self [id number] Cigna Commercial [id number] Self [id number] Cigna Commercial Self [employer] [id number] SP [id number] [employer] P [id number] S [id number] [employer] P [id number] S [id number] Problems, Conditions, and Diagnoses Code Display Name Description Problem Type Effective Dates Data Source(s) 84614019 Essential hypertension Essential hypertension Problem 11/27/2019 12:00:00 AM EST [facility]WOT ([facility], ) E11.69 Type 2 diabetes mellitus with other spec ified complication Type 2 diabetes mellitus with other spec Diagnosis 09/07/2020 09:12:35 AM EST [facility] Z91.89 Other specified personal risk factors, n ot elsewhere classified Other specified personal risk factors, n Diagnosis 09/07/2020 09:12:35 AM ES T [facility] I10 Essential (primary) hypertension Essential (primary) h ypertension Diagnosis 09/07/2020 09:12:35 AM EST [facility] I48.0 Paroxysmal atrial fibrillation Paroxysmal atrial fibri llation Diagnosis 09/07/2020 09:12:35 AM EST [facility] I48.19 Other persistent atrial fibrillation Oth er persistent atrial fibrillation Diagnosis 06/08/2020 08:17:20 AM EDT [facility] Z79.899 Other [place] (current) drug therapy 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 Diagnosis 05/11/2020 03:03:06 PM EDT [facility] Surgeries/Procedures Procedure Description Date Indications Data Source(s) ECG ROUTINE ECG W/LEAST 12 LDS W/I&R 01/07/2020 12:00: 00 AM EDT [facility] ([facility] Diabetic Foot Exam 12/30/2019 12:00:00 AM EST [facility] ([facility] Results ID Date Data Source [id number] 09/29/2020 09:00:00 AM EST [facility] ([facility] Name Value Range Interpretation Code Description Data Marycarmen rce(s) Supporting Document(s) Hemoglobin A1c/Hemoglobin.total in Blood 7.3 % 4.8-5.6 [facility] ([facility] A courtesy copy of this report has been sent to the patient, ID Date Data Source [id number] 09/30/2020 07:05:00 AM EST [facility] Name Value Range Interpretation Code Description Data Marycarmen rce(s) Supporting Document(s) Hemoglobin A1c 7.3 % 4.8-5.6 Above high normal [facility] Prediabetes: 5.7 - 6.4 Diabetes: >6.4 Glycemic control for adults with diabetes: <7.0 ID Date Data Source [id number] 07/29/2020 10:00:00 AM EDT [facility] Name Value Range Interpretation Code Description Data Marycarmen rce(s) Supporting Document(s) SARS coronavirus 2 RNA [facility] This lab was ordered by [facility] and reported by [facility]. ID Date Data Source [id number] 06/21/2020 08:32:00 AM EDT [facility] ([facility] Name Value Range Interpretation Code Description Data Marycarmen rce(s) Supporting Document(s) Microalbumin [Mass/volume] in Urine 119.8 ug/mL [facility] ([facility] ID Date Data Source [id number] 06/21/2020 08:32:00 AM EDT [facility] ([facility] Name Value Range Interpretation Code Description Data Marycarmen rce(s) Supporting Document(s) Hemoglobin A1c/Hemoglobin.total in Blood 8.2 % 4.8-5.6 [facility] ([facility] <content>Prediabetes: 5.7 - 6.4</content >
<content>Diabetes: >6.4</content>
<content>Glycemic control for adults with diabetes: <7.0</content>
<content></content> ID Date Data Source [id number] 06/21/2020 08:32:00 AM EDT [facility] ([facility] [...] [facility] ID Date Data Source [id number] 06/21/2020 08:32:00 AM EDT [facility] ([facility] [...] [facility] ID Date Data Source [id number] 06/22/2020 04:05:00 AM EDT [facility] Name Value [...] IU/L 0-44 [facility] ID Date Data Source [id number] 06/22/2020 05:05:00 AM EDT [facility] Name Value Range Interpretation Code Description Data Marycarmen rce(s) Supporting Document(s) Hemoglobin A1c 8.2 % 4.8-5.6 Above high normal [facility] Prediabetes: 5.7 - 6.4 Diabetes: >6.4 Glycemic control for adults with diabetes: <7.0 ID Date Data Source [id number] 06/22/2020 11:06:00 AM EDT [facility] Name Value Range Interpretation Code Description Data Marycarmen rce(s) Supporting Document(s) Albumin, Urine 119.8 ug/mL Not Estab. [facility] ID Date Data Source [id number] 06/22/2020 04:05:00 AM EDT [facility] Name Value [...] equation was developed through a collaboration with [facility] ([facility]).[1] The NIHcalculation overcomes the limitations of the existing FriedewaldLDL-C equation and performs equally well in both fasting andnon- fasting individuals.1. Russ M, Sandra C, Brianna Q, et al. A new equation forcalculation of low-density lipoprotein cholesterol in patients withn ormolipidemia and/or hypertriglyceridemia. MARY Cardiol.2019Dec 24. doi:10.1001/jamacardio.2020.0013 ID Date Data Source [id number] 04/19/2020 07:04:00 AM EDT [facility] ([facility] Name Value Range Interpretation Code Description Data Marycarmen rce(s) Supporting Document(s) Glucose [Mass/volume] in Capillary blood by Glucometer 214 mg/dL 80- 115 [facility] ([facility] Doctor Notified ID Date Data Source [id number] 04/16/2020 09:50:00 AM EDT [facility] Name Value Range Interpretation Code Description Data Marycarmen rce(s) Supporting Document(s) SARS CORONAVIRUS 2 RNA [facility] This lab was ordered by [facility] and reported by [facility]. ID Date Data Source [id number] 01/07/2020 01:10:00 PM EDT [facility] ([facility] [...] [facility] ID Date Data Source [id number] 01/07/2020 01:10:00 PM EDT [facility] ([facility] Name Value Range Interpretation Code Description Data Marycarmen rce(s) Supporting Document(s) Alt/SGPT 38 U/L 12-78 [facility] Ast/Sgot 17 U/L 7-37 [facility] ([facility] Bilirubin,Direct 0.1 mg/dL 0.0-0.2 [facility] ([facility] Bilirubin,Total 0.3 mg/dL 0.2-1.0 [facility] ([facility] Alkaline Phosphatase 69 U/L 45-117 [facility] ([facility] Total Protein 7.1 GM/DL 6.4-8.2 [facility] ([facility] Albumin/Globulin Ratio 1.15 1.00-1.93 [facility] ([facility] Albumin 3.8 GM/DL 3.2-5.2 [facility] ([facility] ID Date Data Source [id number] 01/07/2020 01:10:00 PM EDT [facility] ([facility] Name Value Range Interpretation Code Description Data [facility](s) Supporting Document(s) Blood Urea Nitrogen 19 mg/dL [...] Little GFR Left</content>
<content>ESRD GFR <15 on [employer]</content>
<content></content> Anion Gap 5 meq/L 8-16 [facility] Carbon Dioxide Level 28 meq/L 21-32 [facility] ([facility] Chloride Level 105 meq/L 98-107 [facility] ([facility] Calcium Level 9.2 mg/dL 8.8-10.2 [facility] ([facility] ID Date Data Source [id number] 01/07/2020 01:10:00 PM EDT [facility] ([facility] [...] <content>Troponin I Reference Interval f or Siemens [place] LOCI:</content>
<content></content>
<content>99th Percentile= 0.00-0.045 ng/ml</content>
<content></content>
<content>Risk Stratification:</content>
<content><= 0.10 ng/ml Decreased Risk for Adverse Clinical</content>
<content>Events.</content>
<content>0.10-1.50 ng/ml Increased Risk for Adverse Clinical</content>
<content>Events. Evaluation of additional</content>
<content>criterion and/or repeat testing in 2-6</content>
<content>hours is suggested to rule out myocardial</content>
<content>damage.</content>
<content>>= 1.50 ng/ml Indicative of Myocardial Injury.</content>
<content></content> ID Date Data Source [id number] 01/07/2020 12:33:00 PM EDT [facility] ([facility] [...] [facility] Neutrophils % 56.5 % 36.0-66.0 [facility] ([facility] Lymph % 30.8 % 24.0-44.0 [facility] Eos % 1.2 % 0.0-3.0 [facility] Baso % 0.6 % 0.0-1.0 [facility] [place] % 10.6 % 0.0-5.0 [facility] ([facility] villanueva [...] 10 0.0-0.2 [facility] [place] # 0.8 10 0.0-0.8 [facility] Lymph # 2.2 10 1.5-5.0 [facility] ID Date Data Source [id number] 12/15/2019 08:33:00 AM EST [facility] ([facility] Name Value Range Interpretation Code Description Data Marycarmen rce(s) Supporting Document(s) Creatinine [Mass/volume] in Serum or Plasma 1.20 mg/dL 0.76-1.27 [facility] ([facility] A courtesy copy of this report has been sent to [phone] Urea nitrogen [Mass/volume] in Serum or Plasma 20 mg/dL 8-27 [facility] ([facility] A courtesy copy of this report has been sent to [phone] Glucose [Mass/volume] in Serum or Plasma 183 mg/dL 65-99 [facility] ([facility] A courtesy copy of this report has been sent to [phone] eGFR If NonAfricn Am 61 mL/min/1.73 [facility] ([facility] A courtesy copy of this report has been sent to [phone] Urea nitrogen/Creatinine [Mass Ratio] in Serum or Plasma 17 1 0-24 [facility] ([facility] A courtesy copy of this report has been sent to [phone] eGFR If Africn Am 71 mL/min/1.73 [facility] ([facility] A courtesy copy of this report has been sent to [phone] Chloride [Moles/volume] in Serum or Plasma 101 mmol/L 96-106 [facility] ([facility] A courtesy copy of this report has been sent to [phone] Potassium [Moles/volume] in Serum or Plasma 4.8 mmol/L 3.5-5.2 [facility] ([facility] A courtesy copy of this report has been sent to [phone] Sodium [Moles/volume] in Serum or Plasma 140 mmol/L 134-144 [facility] ([facility] A courtesy copy of this report has been sent to [phone] Carbon dioxide, total [Moles/volume] in Serum or Plasma 22 mmol/L 20 -29 [facility] ([facility] A courtesy copy of this report has been sent to [phone] Protein, Total 7.1 g/dL 6.0-8.5 [facility] ([facility] A courtesy copy of this report has been sent to [phone] Calcium [Mass/volume] in Serum or Plasma 9.7 mg/dL 8.6-10.2 [facility] ([facility] A courtesy copy of this report has been sent to [phone] Albumin [Mass/volume] in Serum or Plasma 4.6 g/dL 3.8-4.8 [facility] ([facility] A courtesy copy of this report has been sent to [phone] Globulin [Mass/volume] in Serum by calculation 2.5 g/dL 1.5-4.5 [facility] ([facility] A courtesy copy of this report has been sent to [phone] Albumin/Globulin [Mass Ratio] in Serum or Plasma 1.8 1.2-2.2 [facility] ([facility] A courtesy copy of this report has been sent to [phone] Bilirubin.total [Mass/volume] in Serum or Plasma 0.3 mg/dL 0.0-1.2 [facility] ([facility] A courtesy copy of this report has been sent to [phone] Alkaline phosphatase [Enzymatic activity/volume] in Serum or Plasma 57 IU/L 39-117 [facility] ([facility] A courtesy copy of this report has been sent to [phone] Aspartate aminotransferase [Enzymatic activity/volume] in Serum or Plasma 24 IU/L 0-40 [facility] ([facility] A courtesy copy of this report has been sent to [phone] ID Date Data Source [id number] 12/15/2019 08:33:00 AM EST [facility] ([facility] Name Value Range Interpretation Code Description Data Marycarmen rce(s) Supporting Document(s) Prostate specific Ag [Mass/volume] in Serum or Plasma Labora tory test result 0.0-4.0 [facility] ([facility] A courtesy copy of this report has been sent to [phone] ID Date Data Source [id number] 12/15/2019 08:33:00 AM EST [facility] ([facility] Name Value Range Interpretation Code Description Data Marycarmen rce(s) Supporting Document(s) Hemoglobin A1c/Hemoglobin.total in Blood 6.7 % 4.8-5.6 [facility] ([facility] A courtesy copy of this report has been sent to [phone] ID Date Data Source [id number] 12/15/2019 08:33:00 AM EST [facility] ([facility] Name Value Range Interpretation Code Description Data Marycarmen rce(s) Supporting Document(s) Cholesterol in HDL [Mass/volume] in Serum or Plasma 43 mg/dL [facility] ([facility] A courtesy copy of this report has been sent to [phone] Cholesterol [Mass/volume] in Serum or Plasma 154 mg/dL 100-199 [facility] ([facility] A courtesy copy of this report has been sent to [phone] Triglyceride [Mass/volume] in Serum or Plasma 141 mg/dL 0-149 [facility] ([facility] A courtesy copy of this report has been sent to [phone] Comment: Laboratory test result [facility] ([facility] A courtesy copy of this report has been sent to [phone] Cholesterol in VLDL [Mass/volume] in Serum or Plasma by calc ulation 28 mg/dL 5-40 [facility] ([facility] A courtesy copy of this report has been sent to [phone] Cholesterol in LDL [Mass/volume] in Serum or Plasma by calcu lation 83 mg/dL 0-99 [facility] ([facility] A courtesy copy of this report has been sent to [phone] ID Date Data Source [id number] 12/16/2019 04:05:00 AM EST [facility] Name Value [...] IU/L 0-40 [facility] ID Date Data Source [id number] 12/16/2019 05:05:00 AM EST [facility] Name Value Range Interpretation Code Description Data Marycarmen rce(s) Supporting Document(s) Hemoglobin A1c 6.7 % 4.8-5.6 Above high normal [facility] Prediabetes: 5.7 - 6.4 Diabetes: >6.4 Glycemic control for adults with diabetes: <7.0 ID Date Data Source [id number] 12/16/2019 06:06:00 AM EST [facility] Name Value Range Interpretation Code Description Data Marycarmen rce(s) Supporting Document(s) Prostate Specific Ag, Serum 0.0-4.0 [facility] ECLIA methodology. According to th e [place] [employer], Serum PSA shoulddecrease and remain at undetectable levels after radicalprostatectomy. The AUA defines biochemical recurrence as an initialPSA value 0.2 ng/mL or greater followed by a subsequent confirmatoryPSA value 0.2 ng/mL or greater.Values obtained with different assay methods or kits cannot be usedinterchangeably. Results cannot be interpreted as absolute evidenceof the presence or absence of malignant disease. ID Date Data Source [id number] 12/16/2019 04:05:00 AM EST [facility] Name Value [...] completed Patient is a former smoker [facility] ([facility], ) Vital Signs ID Date Data Source [id number] Name Value Range Interpretation Code Description Data Source(s) Body mass index (BMI) [Ratio] 30.3 kg/m2 30.3 k g/m2 [facility] ([facility] Morrow body weight 196 [lb_av] 196 [lb_av] MED[facility] [...] Derived from formula 2.36 m2 2.36 m2 [facility] ([facility]) Body weight 110.338 kg 110.338 kg [facility] ([facility]) Morrow body weight 190 [lb_av] 190 [lb_av] MEDEN T ([facility]) Body mass index (BMI) [Ratio] 31.2 kg/m2 31.2 k g/m2 [facility] ([facility]) Body weight 243.25 [lb_av] 243.25 [lb_av] [facility] T ([facility]) Body height 74 [in_i] 74 [in_i] [facility] ([facility]) 6'2" Body temperature 96.1 [degF] 96.1 [degF] [facility] ([facility]) Oxygen saturation in Arterial blood by Pulse oximetry 97 % 97 % [facility] ([facility]) Heart rate 63 /min 63 /min [facility] ([facility]) Diastolic blood pressure 80 mm[Hg] 80 mm[Hg] [facility] ([facility]) Recheck: 154/80 Systolic blood pressure 164 mm[Hg] 164 mm[Hg] [facility] Recheck: 154/80 Body surface area Derived from formula 2.37 m2 2.37 m2 [facility] ([facility]) Body weight 111.642 kg 111.642 kg [facility] ([facility]) Morrow body weight 190 [lb_av] 190 [lb_av] [facility] ([facility]) Body mass index (BMI) [Ratio] 31.6 kg/m2 31.6 k g/m2 [facility] ([facility]) Body weight 246.12 [lb_av] 246.12 [lb_av] [facility] ([facility]) Body height 74 [in_i] 74 [in_i] [facility] ([facility]) 6'2" Body temperature 97.4 [degF] 97.4 [degF] [facility] ([facility]) Oxygen saturation in Arterial blood by Pulse oximetry 98 % 98 % [facility] ([facility], ) Heart rate 81 /min 81 /min [facility] ([facility], ) Diastolic blood pressure 88 mm[Hg] 88 mm[Hg] [facility] ([facility], ) PHARMACY ASSISTANT Recheck: 152/78 Systolic blood pressure 166 mm[Hg] 166 mm[Hg] M EDENT ([facility], ) PHARMACY ASSISTANT Recheck: 152/78 Body temperature 97.5 [degF] 97.5 [degF] [facility] ([facility] Heart rate 62 /min 62 /min [facility] ([facility] Diastolic blood pressure 82 mm[Hg] 82 mm[Hg] [facility] ([facility] home 132/66 Systolic blood pressure 194 mm[Hg] 194 mm[Hg] [facility] home 132/66 Diastolic blood pressure 93 mm[Hg] 93 mm[Hg] [facility] ([facility] Systolic blood pressure 204 mm[Hg] 204 mm[Hg] [facility] Body mass index (BMI) [Ratio] 30.5 kg/m2 30.5 k g/m2 [facility] ([facility] Morrow body weight 196 [lb_av] 196 [lb_av] [facility] [...] Body weight 107.503 kg 107.503 kg [facility] ([facility]) Body mass index (BMI) [Ratio] 30.4 kg/m2 30.4 k g/m2 [facility] ([facility]) Body weight 237.00 [lb_av] 237.00 [lb_av] [facility] T ([facility]) Body height 74 [in_i] 74 [in_i] [facility] 6'2" Diastolic blood pressure 84 mm[Hg] 84 mm[Hg] [facility] ([facility]) Systolic blood pressure 132 mm[Hg] 132 mm[Hg] [facility] Body mass index (BMI) [Ratio] 29.9 kg/m2 29.9 k g/m2 [facility] ([facility] Morrow body weight 196 [lb_av] 196 [lb_av] [facility] [...] Systolic blood pressure 142 mm[Hg] 142 mm[Hg] [facility] Diastolic blood pressure 87 mm[Hg] [...] ([facility] 6'3" Respiratory rate 18 /min 18 /min [facility] ( [facility] Body temperature 97.3 [degF] 97.3 [degF] [facility] ([facility] Heart rate 115 /min 115 /min [facility] ([facility] Diastolic blood pressure 78 mm[Hg] 78 mm[Hg] [facility] ([facility] ra Systolic blood pressure 180 mm[Hg] 180 mm[Hg] M EDENT ([facility] ra Diastolic blood pressure [...] Systolic blood pressure 183 mm[Hg] 183 mm[Hg] [facility] recheck Diastolic blood pressure 94 mm[Hg] 94 mm[Hg] [facility] Systolic blood pressure 177 mm[Hg] 177 mm[Hg] [facility] Body weight 108.864 kg 108.864 kg [facility] ([facility], ) Body mass index (BMI) [Ratio] 30.8 kg/m2 30.8 k g/m2 [facility] ([facility], ) Body weight 240.00 [lb_av] 240.00 [lb_av] [facility] Body height 74 [in_i] 74 [in_i] [facility] ([facility], ) 6'2" Diastolic blood pressure 72 mm[Hg] 72 mm[Hg] [facility] ([facility], ) Systolic blood pressure 158 mm[Hg] 158 mm[Hg] [facility] ([facility], )
[2020-11-09] MEDS ORDERED: VITMTA PO (22:14)
[2020-11-09] MEDS ORDERED: ASPI-161 PO (22:14)
[2020-11-09] MEDS ORDERED: FISH1000 PO (22:14)
[2020-11-09] MEDS ORDERED: XARE20TA PO (22:14)
--- OUTSIDE RECORDS SUMMARY | 2020-11-09 22:46 | CCD ---
Author Author [facility] Organization [facility] Address Unknown Phone Unavailable Care Team Providers Care Garage Manager Name Role Phone Valente Espino MD Unavailable [...] Unavailable Unavailable Valente Espino MD Unavailable Unavailable Valetne Espino MD Unavailable Unavailable Valente Espino MD Unavailable Unavailable Valente Espino MD Unavailable Unavailable Valente Espino MD Unavailable Unavailable Valente Espino MD Unavailable Unavailable Valente Espino MD Unavailable Unavailable Valente Espino MD Unavailable Unavailable Valente Espino MD Unavailable Unavailable ALEKSEY, KSENIA HUSSEIN CREDIT COMPLIANCE OFFICER-C Unavailable Unavailable ALEKSEY, KSENIA HUSSEIN CREDIT COMPLIANCE OFFICER-C Unavailable Unavailable ALEKSEY, KSENIA HUSSEIN CREDIT COMPLIANCE OFFICER-C Unavailable Unavailable ALEKSEY, KSENIA HUSSEIN CREDIT COMPLIANCE OFFICER-C Unavailable Unavailable ALEKSEY, KSENIA HUSSEIN CREDIT COMPLIANCE OFFICER-C Unavailable Unavailable ALEKSEY, KSENIA HUSSEIN CREDIT COMPLIANCE OFFICER-C Unavailable Unavailable ALEKSEY, KSENIA HUSSEIN CREDIT COMPLIANCE OFFICER-C Unavailable Unavailable ALEKSEY, KSENIA HUSSEIN CREDIT COMPLIANCE OFFICER-C Unavailable Unavailable ALEKSEY, KSENIA HUSSEIN CREDIT COMPLIANCE OFFICER-C Unavailable Unavailable ALEKSEY, KSENIA HUSSEIN CREDIT COMPLIANCE OFFICER-C Unavailable Unavailable ALEKSEY, KSENIA HUSSEIN CREDIT COMPLIANCE OFFICER-C Unavailable Unavailable ALEKSEY, KSENIA HUSSEIN CREDIT COMPLIANCE OFFICER-C Unavailable Unavailable ALEKSEY, KSENIA HUSSEIN CREDIT COMPLIANCE OFFICER-C Unavailable Unavailable ALEKSEY, KSENIA HUSSEIN CREDIT COMPLIANCE OFFICER-C Unavailable Unavailable ALEKSEY, KSENIA HUSSEIN CREDIT COMPLIANCE OFFICER-C Unavailable Unavailable Pleskach, Erika CREDIT COMPLIANCE OFFICER Unavailable Unavailable Pleskach, Erika CREDIT COMPLIANCE OFFICER Unavailable Unavailable Pleskach, Erika CREDIT COMPLIANCE OFFICER Unavailable Unavailable Pleskach, Erika CREDIT COMPLIANCE OFFICER Unavailable Unavailable Pleskach, Erika CREDIT COMPLIANCE OFFICER Unavailable Unavailable Pleskach, Erika CREDIT COMPLIANCE OFFICER Unavailable Unavailable Pleskach, Erika CREDIT COMPLIANCE OFFICER Unavailable Unavailable Pleskach, Reika CREDIT COMPLIANCE OFFICER Unavailable Unavailable Pleskach, Erika CREDIT COMPLIANCE OFFICER Unavailable Unavailable Pleskach, Erika CREDIT COMPLIANCE OFFICER Unavailable Unavailable Pleskach, Erika CREDIT COMPLIANCE OFFICER Unavailable Unavailable Pleskach, Erika CREDIT COMPLIANCE OFFICER Unavailable Unavailable Pleskach, Erika CREDIT COMPLIANCE OFFICER Unavailable Unavailable Pleskach, Erika CREDIT COMPLIANCE OFFICER Unavailable Unavailable Pleskach, Erika CREDIT COMPLIANCE OFFICER Unavailable Unavailable Pleskach, Erika CREDIT COMPLIANCE OFFICER Unavailable Unavailable Pleskach, Erika CREDIT COMPLIANCE OFFICER Unavailable Unavailable Pleskach, Erika CREDIT COMPLIANCE OFFICER Unavailable Unavailable Pleskach, Erika CREDIT COMPLIANCE OFFICER Unavailable Unavailable Pleskach, Erika CREDIT COMPLIANCE OFFICER Unavailable Unavailable Pleskach, Erika CREDIT COMPLIANCE OFFICER Unavailable Unavailable Pleskach, Erika CREDIT COMPLIANCE OFFICER Unavailable Unavailable Pleskach, Erika CREDIT COMPLIANCE OFFICER Unavailable Unavailable Pleskach, Erika CREDIT COMPLIANCE OFFICER Unavailable Unavailable Pleskach, Erika CREDIT COMPLIANCE OFFICER Unavailable Unavailable Pleskach, Erika CREDIT COMPLIANCE OFFICER Unavailable Unavailable Pleskach, Erika CREDIT COMPLIANCE OFFICER Unavailable Unavailable Pleskach, Erika CREDIT COMPLIANCE OFFICER Unavailable Unavailable Rockwell, N Clay OIL REFINERY PROCESS TECHNICIAN Unavailable Unavailable Bentley, N Clay OIL REFINERY PROCESS TECHNICIAN Unavailable Unavailable Rockwell, N Clay OIL REFINERY PROCESS TECHNICIAN Unavailable Unavailable Bentley, N Clay OIL REFINERY PROCESS TECHNICIAN Unavailable Unavailable Bentley, N Clay OIL REFINERY PROCESS TECHNICIAN Unavailable Unavailable Rockwell, N Clay OIL REFINERY PROCESS TECHNICIAN Unavailable Unavailable Rockwell, N Clay OIL REFINERY PROCESS TECHNICIAN Unavailable Unavailable Rockwell, N Clay OIL REFINERY PROCESS TECHNICIAN Unavailable Unavailable Bentley, N Clay OIL REFINERY PROCESS TECHNICIAN Unavailable Unavailable Rockwell, N Clay OIL REFINERY PROCESS TECHNICIAN Unavailable Unavailable Rockwell, N Clay OIL REFINERY PROCESS TECHNICIAN Unavailable Unavailable Bentley, N Clay OIL REFINERY PROCESS TECHNICIAN Unavailable Unavailable Rockwell, N Clay OIL REFINERY PROCESS TECHNICIAN Unavailable Unavailable Bentley, N Clay OIL REFINERY PROCESS TECHNICIAN Unavailable Unavailable Rockwell, N Clay OIL REFINERY PROCESS TECHNICIAN Unavailable Unavailable Bentley, N Clay OIL REFINERY PROCESS TECHNICIAN Unavailable Unavailable Rockwell, N Clay OIL REFINERY PROCESS TECHNICIAN Unavailable Unavailable Rockwell, N Clay OIL REFINERY PROCESS TECHNICIAN Unavailable Unavailable Rockwell, N Clay OIL REFINERY PROCESS TECHNICIAN Unavailable Unavailable Bentley, N Clay OIL REFINERY PROCESS TECHNICIAN Unavailable Unavailable Rockwell, N Clay OIL REFINERY PROCESS TECHNICIAN Unavailable Unavailable Rockwell, N Clay OIL REFINERY PROCESS TECHNICIAN Unavailable Unavailable Bentley, N Clay OIL REFINERY PROCESS TECHNICIAN Unavailable Unavailable Rockwell, N Clay OIL REFINERY PROCESS TECHNICIAN Unavailable Unavailable Bentley, N Clay OIL REFINERY PROCESS TECHNICIAN Unavailable Unavailable Rockwell, N Clay OIL REFINERY PROCESS TECHNICIAN Unavailable Unavailable Rockwell, N Clay OIL REFINERY PROCESS TECHNICIAN Unavailable Unavailable Bentley, N Clay OIL REFINERY PROCESS TECHNICIAN Unavailable Unavailable Rockwell, N Clay OIL REFINERY PROCESS TECHNICIAN Unavailable Unavailable Rockwell, N Clay OIL REFINERY PROCESS TECHNICIAN Unavailable Unavailable Re-disclosure Warning The records that [...] is protected by Article 27-F of the [facility] Public Health law. If you continue you may have access to information: Regarding HIV / AIDS; Provided by facilities licensed or operated by the [facility] Office of Mental Health; or Provided by the [facility] Office for People With Developmental Disabilities. If such information is present, then the following [facility] mandated warning applies: This information has [...] law may result in a fine or detention sentence or both. A general authorization for [...] Data Source(s ) Outpatient Attender: Erika Tan [facility] Main Office 10/04/2020 0 7:00:00 AM EST [facility] ([facility] Outpatient Attender: Valente AMARALJENNA-SJP.JENNA 08/29 12:00:00 AM EST [facility] Outpatient Attender: HUSSEIN ALEKSEY HOBBS-C [place] 07/15/2020 08:45:00 AM EDT [facility] ([facility] Outpatient Attender: HUSSEIN ALEKSEY HOBBS-C [place] e[place]l 06/30/2020 02:45:00 PM EDT [facility] ([facility] Outpatient Attender: Erika HOBBS Main Office 06/29/2020 0 8:00:00 AM EDT [facility] ([facility] Outpatient Attender: Valente ZAMORASJMargaret.JENNA 05/29 12:00:00 AM EDT [facility] Outpatient Attender: Valente CUNNINGHAM-SJMargaret.JENNA 04/29 12:00:00 AM EDT - 05/25/2020 02:33:41 PM EDT [facility] Outpatient Attender: Clay ZAMORASJEveliaJENNA 05/11/2020 12 :00:00 AM EDT [facility] Outpatient Attender: Clay MARTEJENNA 020 12:00:00 AM EDT - 04/26/2020 11:23:06 AM EDT [facility] Outpatient Attender: Clay MARTEJENNA 020 12:00:00 AM EDT - 03/29/2020 12:07:55 PM EDT [facility] Outpatient Attender: Erika HOBBS Main Office 03/18/2020 0 1:00:00 PM EDT [facility] ([facility] Outpatient Attender: Clay Hagan NP SJP.JENNA-SJP.JENNA 020 12:36:18 PM EDT - 02/23/2020 01:44:01 PM EDT [facility] Outpatient Attender: Clay Hagan NP SJP.JENNA-SJP.JENNA 020 12:00:00 AM EDT - 01/27/2020 11:43:00 AM EDT [address], [facility] [address] 01/14/2020 12:00:00 AM EDT eCW1 ([facility]) [address], [facility] [address] 01/14/2020 12:00:00 AM EDT eC1 ([facility]) Outpatient Attender: Erika Tan [facility] Main Office 01/12/2020 1 1:30:00 AM EDT [facility] ([facility] Outpatient Attender: Erika Tan [facility] Main Office 01/07/2020 1 1:00:00 AM EDT [facility] ([facility] Immunizations Vaccine Date Status Description Data Source(s) New in 2012. IIV4 07/08/2020 12:01:00 PM EDT completed [facility] ([facility] Medications Medication Brand Name Start Date Product Form Dose Route Admi nistrative Instructions Pharmacy Instructions Status Indications Reaction Description Data Source(s) BIPAP 08/03/2020 12:00:00 AM EDT active [facility] ([facility], ) empagliflozin 10 MG Oral [...] 12:00:00 AM EST ORAL active M EDENT ([facility], ) Suprep Bowel Prep Kit Suprep Bowel Prep Kit 12/03/2019 12:00:00 AM EST active [facility] ([facility], ) Insurance Providers Payer name Policy type / Coverage type Policy ID Covered alliance party ID Covered alliance party's relationship to crowell Policy Crowell Plan Information [facility] [id number] SP [id number] [facility] [id number] [facility] [id number] SP A [id number] MEDICARE [id number] SP [id number] [id number] COMMERCIAL GENERIC [id number] Brianna A [id number] MEDICARE [id number] Brianna [id number] J21 MEDICARE [id number] SP [id number] J21 [employer] [id number] SP [id number] MEDICARE [id number] SP [id number] [id number] Cigna Commercial [id number] Self [id number] ANSI-Commercial [id number] Cigna Commercial [id number] Self [id number] Cigna Commercial [id number] Self [id number] Cigna Commercial Self [employer] [id number] SP [id number] [employer] P [id number] S [id number] [employer] P [id number] S [id number] Problems, Conditions, and Diagnoses Code Display Name Description Problem Type Effective Dates Data Source(s) 61046278 Essential hypertension Essential hypertension Problem 11/27/2019 12:00:00 AM EST [facility] ([facility], ) E11.69 Type 2 diabetes mellitus with other spec ified complication Type 2 diabetes mellitus with other spec Diagnosis 09/07/2020 09:12:35 AM EST [facility] Z91.89 Other specified personal risk factors, n ot elsewhere classified Other specified personal risk factors, n Diagnosis 09/07/2020 09:12:35 AM ES T [facility] I10 Essential (primary) hypertension Essential (primary) h ypertension Diagnosis 09/07/2020 09:12:35 AM EST [facility] I48.0 Paroxysmal atrial fibrillation Paroxysmal atrial fibri llation Diagnosis 09/07/2020 09:12:35 AM EST [facility] I48.19 Other persistent atrial fibrillation Oth er persistent atrial fibrillation Diagnosis 06/08/2020 08:17:20 AM EDT [facility] Z79.899 Other terminal 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 (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) drug therapy O ther half-way (current) drug therapy Diagnosis 05/11/2020 03:03:06 PM EDT [facility] Surgeries/Procedures Procedure Description Date Indications Data Source(s) ECG ROUTINE ECG W/LEAST 12 LDS W/I&R 01/07/2020 12:00: 00 AM EDT [facility] ([facility] Diabetic Foot Exam 12/30/2019 12:00:00 AM EST [facility] ([facility] Results ID Date Data Source [id number] 09/29/2020 09:00:00 AM EST [facility] ([facility] Name Value Range Interpretation Code Description Data Marycarmen rce(s) Supporting Document(s) Hemoglobin A1c/Hemoglobin.total in Blood 7.3 % 4.8-5.6 [facility] ([facility] A courtesy copy of this report has been sent to the patient, ID Date Data Source [id number] 09/30/2020 07:05:00 AM EST [facility] Name Value Range Interpretation Code Description Data Marycarmen rce(s) Supporting Document(s) Hemoglobin A1c 7.3 % 4.8-5.6 Above high normal [facility] Prediabetes: 5.7 - 6.4 Diabetes: >6.4 Glycemic control for adults with diabetes: <7.0 ID Date Data Source [id number] 07/29/2020 10:00:00 AM EDT [facility] Name Value Range Interpretation Code Description Data Marycarmen rce(s) Supporting Document(s) SARS coronavirus 2 RNA [facility] This lab was ordered by [facility] and reported by [facility]. ID Date Data Source [id number] 06/21/2020 08:32:00 AM EDT [facility] ([facility] Name Value Range Interpretation Code Description Data Marycarmen rce(s) Supporting Document(s) Microalbumin [Mass/volume] in Urine 119.8 ug/mL [facility] ([facility] ID Date Data Source [id number] 06/21/2020 08:32:00 AM EDT [facility] ([facility] Name Value Range Interpretation Code Description Data Marycarmen rce(s) Supporting Document(s) Hemoglobin A1c/Hemoglobin.total in Blood 8.2 % 4.8-5.6 [facility] ([facility] <content>Prediabetes: 5.7 - 6.4</content >
<content>Diabetes: >6.4</content>
<content>Glycemic control for adults with diabetes: <7.0</content>
<content></content> ID Date Data Source [id number] 06/21/2020 08:32:00 AM EDT [facility] ([facility] [...] [facility] ID Date Data Source [id number] 06/21/2020 08:32:00 AM EDT [facility] ([facility] [...] [facility] ID Date Data Source [id number] 06/22/2020 04:05:00 AM EDT [facility] Name Value [...] IU/L 0-44 [facility] ID Date Data Source [id number] 06/22/2020 05:05:00 AM EDT [facility] Name Value Range Interpretation Code Description Data Marycarmen rce(s) Supporting Document(s) Hemoglobin A1c 8.2 % 4.8-5.6 Above high normal [facility] Prediabetes: 5.7 - 6.4 Diabetes: >6.4 Glycemic control for adults with diabetes: <7.0 ID Date Data Source [id number] 06/22/2020 11:06:00 AM EDT [facility] Name Value Range Interpretation Code Description Data Marycarmen rce(s) Supporting Document(s) Albumin, Urine 119.8 ug/mL Not Estab. [facility] ID Date Data Source [id number] 06/22/2020 04:05:00 AM EDT [facility] Name Value [...] equation was developed through a collaboration with [facility] Heart, Lung and Blood [employer] (RUST).[1] The NIHcalculation overcomes the limitations of the existing FriedewaldLDL-C equation and performs equally well in both fasting andnon- fasting individuals.1. Russ M, Sandra C, Brianna Q, et al. A new equation forcalculation of low-density lipoprotein cholesterol in patients withn ormolipidemia and/or hypertriglyceridemia. MARY Cardiol.2019Dec 24. doi:10.1001/jamacardio.2020.0013 ID Date Data Source [id number] 04/19/2020 07:04:00 AM EDT [facility] ([facility] Name Value Range Interpretation Code Description Data Marycarmen rce(s) Supporting Document(s) Glucose [Mass/volume] in Capillary blood by Glucometer 214 mg/dL 80- 115 [facility] ([facility] Doctor Notified ID Date Data Source [id number] 04/16/2020 09:50:00 AM EDT [facility] Name Value Range Interpretation Code Description Data Marycarmen rce(s) Supporting Document(s) SARS CORONAVIRUS 2 RNA [facility] This lab was ordered by [facility] and reported by [facility]. ID Date Data Source [id number] 01/07/2020 01:10:00 PM EDT [facility] ([facility] [...] [facility] ID Date Data Source [id number] 01/07/2020 01:10:00 PM EDT [facility] ([facility] Name Value Range Interpretation Code Description Data Marycarmen e(s) Supporting Document(s) Alt/SGPT 38 U/L 12-78 [facility] [...] [facility] ID Date Data Source [id number] 01/07/2020 01:10:00 PM EDT [facility] ([facility] Name Value Range Interpretation Code Description Data [facility](s) Supporting Document(s) Blood Urea Nitrogen 19 mg/dL [...] Little GFR Left</content>
<content>ESRD GFR <15 on CUSTOMER TECHNICAL SERVICES MANAGER</content>
<content></content> Anion Gap 5 meq/L 8-16 [facility] ([facility] Carbon Dioxide Level 28 meq/L 21-32 [facility] ([facility] Chloride Level 105 meq/L 98-107 [facility] ([facility] Calcium Level 9.2 mg/dL 8.8-10.2 [facility] ([facility] ID Date Data Source [id number] 01/07/2020 01:10:00 PM EDT [facility] ([facility] [...] <content>Troponin I Reference Interval f or Siemens [place]an LOCI:</content>
<content></content>
<content>99th Percentile= 0.00-0.045 ng/ml</content>
<content></content>
<content>Risk Stratification:</content>
<content><= 0.10 ng/ml Decreased Risk for Adverse Clinical</content>
<content>Events.</content>
<content>0.10-1.50 ng/ml Increased Risk for Adverse Clinical</content>
<content>Events. Evaluation of additional</content>
<content>criterion and/or repeat testing in 2-6</content>
<content>hours is suggested to rule out myocardial</content>
<content>damage.</content>
<content>>= 1.50 ng/ml Indicative of Myocardial Injury.</content>
<content></content> ID Date Data Source [id number] 01/07/2020 12:33:00 PM EDT [facility] ([facility] [...] % 0.0-1.0 [facility] ([facility] [place] % 10.6 % 0.0-5.0 [facility] ([facility] villanueva [...] 10 0.0-0.2 [facility] ([facility] [place] # 0.8 10 0.0-0.8 [facility] ([facility] Lymph # 2.2 10 1.5-5.0 [facility] ([facility] ID Date Data Source [id number] 12/15/2019 08:33:00 AM EST [facility] ([facility] Name Value Range Interpretation Code Description Data Marycarmen rce(s) Supporting Document(s) Creatinine [Mass/volume] in Serum or Plasma 1.20 mg/dL 0.76-1.27 [facility] ([facility] A courtesy copy of this report has been sent to [phone] Urea nitrogen [Mass/volume] in Serum or Plasma 20 mg/dL 8-27 [facility] ([facility] A courtesy copy of this report has been sent to [phone] Glucose [Mass/volume] in Serum or Plasma 183 mg/dL 65-99 [facility] ([facility] A courtesy copy of this report has been sent to [phone] eGFR If NonAfricn Am 61 mL/min/1.73 [facility] ([facility] A courtesy copy of this report has been sent to [phone] Urea nitrogen/Creatinine [Mass Ratio] in Serum or Plasma 17 1 0-24 [facility] ([facility] A courtesy copy of this report has been sent to [phone] eGFR If Africn Am 71 mL/min/1.73 [facility] ([facility] A courtesy copy of this report has been sent to [phone] Chloride [Moles/volume] in Serum or Plasma 101 mmol/L 96-106 [facility] ([facility] A courtesy copy of this report has been sent to [phone] Potassium [Moles/volume] in Serum or Plasma 4.8 mmol/L 3.5-5.2 [facility] ([facility] A courtesy copy of this report has been sent to [phone] Sodium [Moles/volume] in Serum or Plasma 140 mmol/L 134-144 [facility] ([facility] A courtesy copy of this report has been sent to [phone] Carbon dioxide, total [Moles/volume] in Serum or Plasma 22 mmol/L 20 -29 [facility] ([facility] A courtesy copy of this report has been sent to [phone] Protein, Total 7.1 g/dL 6.0-8.5 [facility] ([facility] A courtesy copy of this report has been sent to [phone] Calcium [Mass/volume] in Serum or Plasma 9.7 mg/dL 8.6-10.2 [facility] ([facility] A courtesy copy of this report has been sent to [phone] Albumin [Mass/volume] in Serum or Plasma 4.6 g/dL 3.8-4.8 [facility] ([facility] A courtesy copy of this report has been sent to [phone] Globulin [Mass/volume] in Serum by calculation 2.5 g/dL 1.5-4.5 [facility] ([facility] A courtesy copy of this report has been sent to [phone] Albumin/Globulin [Mass Ratio] in Serum or Plasma 1.8 1.2-2.2 [facility] ([facility] A courtesy copy of this report has been sent to [phone] Bilirubin.total [Mass/volume] in Serum or Plasma 0.3 mg/dL 0.0-1.2 [facility] ([facility] A courtesy copy of this report has been sent to [phone] Alkaline phosphatase [Enzymatic activity/volume] in Serum or Plasma 57 IU/L 39-117 [facility] ([facility] A courtesy copy of this report has been sent to [phone] Aspartate aminotransferase [Enzymatic activity/volume] in Serum or Plasma 24 IU/L 0-40 [facility] ([facility] A courtesy copy of this report has been sent to [phone] ID Date Data Source [id number] 12/15/2019 08:33:00 AM EST [facility] ([facility] Name Value Range Interpretation Code Description Data Marcyarmen rce(s) Supporting Document(s) Prostate specific Ag [Mass/volume] in Serum or Plasma Labora tory test result 0.0-4.0 [facility] ([facility] A courtesy copy of this report has been sent to [phone] ID Date Data Source [id number] 12/15/2019 08:33:00 AM EST [facility] ([facility] Name Value Range Interpretation Code Description Data Marycarmen rce(s) Supporting Document(s) Hemoglobin A1c/Hemoglobin.total in Blood 6.7 % 4.8-5.6 [facility] ([facility] A courtesy copy of this report has been sent to [phone] ID Date Data Source [id number] 12/15/2019 08:33:00 AM EST [facility] ([facility] Name Value Range Interpretation Code Description Data Marycarmen rce(s) Supporting Document(s) Cholesterol in HDL [Mass/volume] in Serum or Plasma 43 mg/dL [facility] ([facility] A courtesy copy of this report has been sent to [phone] Cholesterol [Mass/volume] in Serum or Plasma 154 mg/dL 100-199 [facility] ([facility] A courtesy copy of this report has been sent to [phone] Triglyceride [Mass/volume] in Serum or Plasma 141 mg/dL 0-149 [facility] ([facility] A courtesy copy of this report has been sent to [phone] Comment: Laboratory test result [facility] ([facility] A courtesy copy of this report has been sent to [phone] Cholesterol in VLDL [Mass/volume] in Serum or Plasma by calc ulation 28 mg/dL 5-40 [facility] ([facility] A courtesy copy of this report has been sent to [phone] Cholesterol in LDL [Mass/volume] in Serum or Plasma by calcu lation 83 mg/dL 0-99 [facility] ([facility] A courtesy copy of this report has been sent to [phone] ID Date Data Source [id number] 12/16/2019 04:05:00 AM EST [facility] Name Value [...] IU/L 0-40 [facility] ID Date Data Source [id number] 12/16/2019 05:05:00 AM EST [facility] Name Value Range Interpretation Code Description Data Marycarmen rce(s) Supporting Document(s) Hemoglobin A1c 6.7 % 4.8-5.6 Above high normal [facility] Prediabetes: 5.7 - 6.4 Diabetes: >6.4 Glycemic control for adults with diabetes: <7.0 ID Date Data Source [id number] 12/16/2019 06:06:00 AM EST [facility] Name Value Range Interpretation Code Description Data Marycarmen rce(s) Supporting Document(s) Prostate Specific Ag, Serum 0.0-4.0 [facility] ECLIA methodology. According to th e [employer], Serum PSA shoulddecrease and remain at undetectable levels after radicalprostatectomy. The AUA defines biochemical recurrence as an initialPSA value 0.2 ng/mL or greater followed by a subsequent confirmatoryPSA value 0.2 ng/mL or greater.Values obtained with different assay methods or kits cannot be usedinterchangeably. Results cannot be interpreted as absolute evidenceof the presence or absence of malignant disease. ID Date Data Source [id number] 12/16/2019 04:05:00 AM EST [facility] Name Value [...] completed Patient is a former smoker [facility] ([facility], ) Vital Signs ID Date Data Source [id number] Name Value Range Interpretation Code Description Data Source(s) Body mass index (BMI) [Ratio] 30.3 kg/m2 30.3 k g/m2 [facility] ([facility] [place] body weight 196 [lb_av] 196 [lb_av] MED[facility] [...] 212 mm[Hg] 212 mm[Hg] M [facility] ([facility] Body surface area Derived from formula 2.36 m2 2.36 m2 [facility] ([facility]) Body weight 110.338 kg 110.338 kg [facility] ([facility]) [place] body weight 190 [lb_av] 190 [lb_av] [facility] T ([facility]) Body mass index (BMI) [Ratio] 31.2 kg/m2 31.2 k g/m2 [facility] ([facility]) Body weight 243.25 [lb_av] 243.25 [lb_av] [facility] T ([facility] [facility] Body height 74 [in_i] 74 [in_i] [facility] ([facility]) 6'2" Body temperature 96.1 [degF] 96.1 [degF] [facility] ([facility]) Oxygen saturation in Arterial blood by Pulse oximetry 97 % 97 % [facility] ([facility]) Heart rate 63 /min 63 /min [facility] ([facility]) Diastolic blood pressure 80 mm[Hg] 80 mm[Hg] [facility] ([facility]) Recheck: 154/80 Systolic blood pressure 164 mm[Hg] 164 mm[Hg] [facility] Recheck: 154/80 Body surface area Derived from formula 2.37 m2 2.37 m2 [facility] ([facility]) Body weight 111.642 kg 111.642 kg [facility] ([facility]) [place] body weight 190 [lb_av] 190 [lb_av] [facility] ([facility]) Body mass index (BMI) [Ratio] 31.6 kg/m2 31.6 k g/m2 [facility] ([facility]) Body weight 246.12 [lb_av] 246.12 [lb_av] [facility] ([facility]) Body height 74 [in_i] 74 [in_i] [facility] ([facility]) 6'2" Body temperature 97.4 [degF] 97.4 [degF] [facility] ([facility]) Oxygen saturation in Arterial blood by Pulse oximetry 98 % 98 % [facility] ([facility], ) Heart rate 81 /min 81 /min [facility] ([facility], ) Diastolic blood pressure 88 mm[Hg] 88 mm[Hg] [facility] ([facility], ) OIL REFINERY PROCESS TECHNICIAN Recheck: 152/78 Systolic blood pressure 166 mm[Hg] 166 mm[Hg] [facility] OIL REFINERY PROCESS TECHNICIAN Recheck: 152/78 Body temperature 97.5 [degF] 97.5 [degF] [facility] ([facility] Heart rate 62 /min 62 /min [facility] ([facility] Diastolic blood pressure 82 mm[Hg] 82 mm[Hg] [facility] ([facility] home 132/66 Systolic blood pressure 194 mm[Hg] 194 mm[Hg] [facility] home 132/66 Diastolic blood pressure 93 mm[Hg] 93 mm[Hg] [facility] ([facility] Systolic blood pressure 204 mm[Hg] 204 mm[Hg] [facility] ([facility] Body mass index (BMI) [Ratio] 30.5 kg/m2 30.5 k g/m2 [facility] ([facility] [place] body weight 196 [lb_av] 196 [lb_av] [facility] [...] Body weight 107.503 kg 107.503 kg [facility] ([facility]) Body mass index (BMI) [Ratio] 30.4 kg/m2 30.4 k g/m2 [facility] ([facility]) Body weight 237.00 [lb_av] 237.00 [lb_av] [facility] ([facility]) Body height 74 [in_i] 74 [in_i] [facility] ([facility]) 6'2" Diastolic blood pressure 84 mm[Hg] 84 mm[Hg] [facility] ([facility]) Systolic blood pressure 132 mm[Hg] 132 mm[Hg] [facility] Body mass index (BMI) [Ratio] 29.9 kg/m2 29.9 k g/m2 [facility] ([facility] [place] body weight 196 [lb_av] 196 [lb_av] [facility] [...] Systolic blood pressure 142 mm[Hg] 142 mm[Hg] M [facility] ([facility] [...] Systolic blood pressure 183 mm[Hg] 183 mm[Hg] [facility] recheck Diastolic blood pressure 94 mm[Hg] 94 mm[Hg] [facility] Systolic blood pressure 177 mm[Hg] 177 mm[Hg] [facility] Body weight 108.864 kg 108.864 kg [facility] ([facility], ) Body mass index (BMI) [Ratio] 30.8 kg/m2 30.8 k g/m2 [facility] ([facility]) Body weight 240.00 [lb_av] 240.00 [lb_av] [facility] ([facility], ) Body height 74 [in_i] 74 [in_i] [facility] ([facility], ) 6'2" Diastolic blood pressure 72 mm[Hg] 72 mm[Hg] [facility] ([facility]) Systolic blood pressure 158 mm[Hg] 158 mm[Hg] [facility], )
[2020-11-09] MEDS ORDERED: ACETAMINOPHEN TAB 650MG DOSE (2X325MG) PO PRN (23:15)
[2020-11-09] MEDS ORDERED: MOM 30ML SUSPENSION UDC PO PRN (23:15)
[2020-11-09] MEDS ORDERED: MAALOX 30 ML SUSP *UDC PO PRN (23:15)
--- NOTE | 2020-11-09 23:15 | HPEPDOC ---
[facility] Medical History & Physical Date of Admission Nov 09, 2020 Date of Service: Nov 09, 2020 History and Physical CHIEF COMPLAINT: Blood in stool HISTORY OF PRESENT ILLNESS: 70M PMHx HTN, HLD, DM, A fib (s/p cardiovesion on xarleto) who presents to the ED for a 1 day history of bright red blood per rectum. Patient tells me that at 10 AM this morning he noticed he was having a bowel movement and noticed blood in his stools after that he continued to have bloody stools every approximate 1- 2 hours. Tells me the bleeding has slowed down since and he's feeling better now with his last bloody bowel movement approximately 2 hours ago. He tells me he's never had bloody stools in the past he's had a colonoscopy 2 months ago that was poorly prepped incomplete emptying as well as a colonoscopy 5 years ago that showed diverticula as well as hemorrhoids. Currently patient feels well denies any chest pain or palpitations denies abdominal pain but endorses some abdominal discomfort that is generalized that started with the bloody bowel movements this morning. Patient feels well otherwise he didn't take his medications today which she attributes his high blood pressure. PAST MEDICAL/SURGICAL HISTORY: Hypertension A. fib s/p cardioversion 05/[address] Espino None insulin dependent DM Prostate cancer s/p prostatectomy 2007 Hyperlipidemia ANGEL uses bipap at home per patient SOCIAL HISTORY: Denies alcohol use quit 36 years ago Denies tobacco use quit 30 years ago Denies illicit drug use FAMILY HISTORY: Reviewed and none contributory to this admission History of CAD in father, brother and sister ALLERGIES: Please see below. REVIEW OF SYSTEMS: 10 point review of systems complete all negative otherwise stated in HPI HOME MEDICATIONS: Please see below. PHYSICAL EXAMINATION: Constitutional: Awake and alert, in no apparent distress ENT: Sclera are clear. Mucosa is moist. Respiratory: Lungs CTA bilaterally. No respiratory distress. Cardiovascular: RRR S1 and S2 are normal, no murmur Gastrointestinal: Abdomen is soft, non distended, non tender, BS present. XANDER red blood. No external hemorrhoids. Musculoskeletal: No lower extremity edema. Neurologic: No focal neurological deficit. Mental Status: A&O x3, normal affect Skin: Warm, dry LABORATORY DATA: See below. IMAGING: See chart MICROBIOLOGY: Please see below. ASSESSMENT/PLAN 70M PMHx HTN, HLD, DM, A fib (s/p cardiovesion on xarleto) who presents to the ED for a 1 day history of bright red blood per rectum. Admitted for medical management. # lower GI bleed: May be due to: diverticulosis, hereditary hemorrhagic telangiectasia, polyps, colorectal cancer, or hemorrhoids. - XANDER positive. hgb 14.7 in ED. Trend HH q8h. IV protonix BID. Dr Gann contacted from ED, will keep NPO for possible need for colonoscopy. IVFs. Hold ASA/xarleto. # A fib: s/p cardioversion, currently NSR. On Xarleto which I will hold given the lower GI bleed. Continue amiodarone 200 M-F. 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 # DM: ISS. Frequent Accu-Cheks. Hypoglycemic precautions. # Hypertension: Didn't' take meds today. Uncontrolled. Continue home lisinopril. Monitor and titrate, may need additional agent if not better controlled by hoang montano. # Hyperlipidemia: Continue statin # Coronary artery disease: Seen on echo suspected interm TN on aspirin and statin. We'll hold aspirin for now given lower GI bleed. # ANGEL: may use own Bipap machine. # DVT prophylaxis: SCDs only for GI bleed A Yousef Hospitalist Vital Signs Vital Signs Date Time Temp Pulse Resp B/P (MAP) Pulse Ox O2 Delivery O2 Flow Rate FiO2 11/09/20 21:24 98.2 85 16 184/99 (127) 98 Room Air Laboratory Data Labs 24H Laboratory Tests 2 11/09/20 18:48: Prothrombin Time 14.4H, Prothromb Time International Ratio 1.10, Activated Partial Thromboplast Time 35.2, Total Bilirubin 0.4, Direct Bilirubin < 0.1, Aspartate Amino Transf (AST/SGOT) 21, Alanine Aminotransferase (ALT/SGPT) 37, Alkaline Phosphatase 63, Total Protein 7.0, Albumin 3.9, Albumin/Globulin Ratio 1.3, Lipase 173 11/09/20 18:58: Immature Granulocyte % (Auto) 0.3, Neutrophils (%) (Auto) 69.3H, Lymphocytes (%) (Auto) 20.2L, Monocytes (%) (Auto) 9.0H, Eosinophils (%) (Auto) 0.9, Basophils (%) (Auto) 0.3, Neutrophils # (Auto) 5.3, Lymphocytes # (Auto) 1.6, Monocytes # (Auto) 0.7, Eosinophils # (Auto) 0.1, Basophils # (Auto) 0.0, Nucleated Red Blood Cells % (auto) 0.0 11/09/20 19:13: POC Glucose (Misc Panel) 167H, POC Sodium (Misc Panel) 138, POC Potassium (Misc Panel) 4.3, POC Chloride (Misc Panel) 102, POC Total CO2 (Misc Panel) 23.0, POC Blood Urea Nitrogen (Misc Panel 19, POC Ionized Calcium (Misc Panel) 4.7, POC Creatinine (Misc Panel) 1.1, POC Hematocrit (Misc Panel) 46.0 11/09/20 22:44: CBC/BMP Laboratory Tests 11/09/20 18:58 Home Medications Scheduled Amiodarone HCl (Amiodarone HCl) 200 Mg Tablet, 200 MG PO QPM TAKES AT 1800 Aspirin (Aspirin EC) 81 Mg Tablet.dr, 81 MG PO QPM TAKES AT 1800 Empagliflozin (Jardiance) 10 Mg Tablet, 10 MG PO DAILY Lisinopril (Lisinopril) 40 Mg Tablet, 40 MG PO QPM TAKES AT 1800 Metformin HCl (Metformin HCl) 1,000 Mg Tablet, 1,000 MG PO BID Multivitamins (Thera M Plus Tablet) 1 Each Tablet, 1 TAB PO DAILY [place]-3 Fatty Acids/Fish Oil (Fish Oil 1,000 mg Capsule) 1 Each Capsule, 1,000 MG PO BID Rivaroxaban (Xarelto) 20 Mg Tablet, 20 MG PO QPM TAKES AT 1800 Simvastatin (Simvastatin) 10 Mg Tablet, 10 MG PO QPM TAKES AT 1800 Allergies Coded Allergies: amoxicillin (Verified Adverse Reaction, Intermediate, diarrhea, 07/26/20) clavulanic acid (Verified Adverse Reaction, Intermediate, diarrhea, 07/26/20) A-FIB/CHADSVASC A-FIB History Current/History of A-Fib/PAF?: Yes Current PO Anticoag Therapy: No ALEXANDER GILLIS MD Nov 09, 2020 23:15
[2020-11-09] MEDS: NS 1,000 ML IV SCH (23:21)
[2020-11-09 23:28] LABS: RSV AMPLIFICATION NEGATIVE (NEGATIVE)
[2020-11-10] MEDS: lisinopriL 40 MG TAB PO SCH ×2 (00:30→17:11)
[2020-11-10] MEDS: AMIODARONE 200 MG TAB (PACERONE) PO SCH ×2 (00:30→17:11)
[2020-11-10] MEDS: PANTOPRAZOLE 40MG VIAL (C9113 PER 1) IV SCH ×3 (00:30→21:27)
[2020-11-10 00:55] LABS: HEMATOCRIT 41.8 % (42.0-52.0); HEMOGLOBIN 13.5 g/dl (13.5-17.5)
[2020-11-10 01:36] VITALS: BP 158/87
[2020-11-10 06:00] VITALS: BP_SYST 141; BP_SYST 143; BP_SYST 151; BP_DIAS 71; BP_DIAS 74
[2020-11-10 06:24] LABS: HEMATOCRIT 41.6 % (42.0-52.0); HEMOGLOBIN 13.2 g/dl (13.5-17.5); MEAN CORPUSCULAR HEMOGLOBIN 29.9 pg (27.0-33.0); MEAN CORPUSCULAR HGB CONC 31.7 g/dl (32.0-36.5); MEAN CORPUSCULAR VOLUME 94.3 fl (80.0-96.0); PLATELET COUNT, AUTOMATED 179 10^3/uL (150-450); RED BLOOD COUNT 4.41 10^6/uL (4.30-6.10); WHITE BLOOD COUNT 8.6 10^3/uL (4.0-10.0)
[2020-11-10 07:04] LABS: BLOOD UREA NITROGEN 18 MG/DL (7-18); CARBON DIOXIDE LEVEL 20 MEQ/L (21-32); CHLORIDE LEVEL 110 MEQ/L (98-107); CREATININE FOR GFR 1.11 MG/DL (0.70-1.30); GLOMERULAR FILTRATION RATE > 60.0 (>42); GLUCOSE, FASTING 136 MG/DL (70-100); POTASSIUM SERUM 4.3 MEQ/L (3.5-5.1); SODIUM LEVEL 141 MEQ/L (136-145)
[2020-11-10 07:05] LABS: MAGNESIUM LEVEL 1.9 MG/DL (1.8-2.4)
[2020-11-10] MEDS: NS 1,000 ML IV SCH (08:23)
[2020-11-10] MEDS: MULTIVITAMINS/MINERALS THERAP 1 TAB PO SCH (08:24)
[2020-11-10] MEDS: DOCUSATE SODIUM 100MG CAPSULE PO SCH ×2 (08:24→21:00)
[2020-11-10] MEDS ORDERED: PREVNAR 13 VACCINE SYRINGE IM ONE (09:00)
[2020-11-10 13:04] LABS: HEMOGLOBIN 12.1 g/dl (13.5-17.5)
[2020-11-10 14:00] VITALS: BP 143/63
--- NOTE | 2020-11-10 14:06 | IPNPDOC ---
Text Note Date of Service The patient was seen on 11/10/20. NOTE Subjective: Patient stated that he had a few bowel movements covered with red bright blood in the morning Objective: GENERAL APPEARANCE: NAD HEENT: no scleral icterus, no JVD, EOMI CARDIOVASCULAR:S1S2 LUNGS: CTA ABDOMEN: soft & not tender w palpitation MUSCULOSKELETAL: no cyanosis, no swelling INTEGUMENT: no generalized palor NEUROLOGICAL: cranial nerve function from 2-12 intact intact, follows commands, speech not dysarthric ASSESSMENT/PLAN 70M PMHx HTN, HLD, DM, A fib (s/p cardiovesion on xarleto) who presents to the ED for a 1 day history of bright red blood per rectum. Lower GI bleed Most likely secondary to diverticulosis superimposed with therapy with xarelto Appreciate/agree with surgical consult H&H every 6 hours Chronic Atrial fibrillation Status post cardioversion Xarelto on hold Heart rate under control Hypertension Blood pressure under control Continue home cardioprotective medication Diabetes Insulin sinus scale Diabetes diet ANGLE: may use own Bipap machine Hyperlipidemia Statin Coronary artery diseases If patient has stable coronary artery diseases patient should not be on the aspirin and xarelto. Patient should be on the xarelto I will discuss with Dr. Espino aspirin continuation VS,Fishbone, I+O VS, Fishbone, I+O Laboratory Tests 11/09/20 18:58 11/10/20 00:51 11/10/20 05:30 11/10/20 12:58 Vital Signs Date Time Temp Pulse Resp B/P (MAP) Pulse Ox O2 Delivery O2 Flow Rate FiO2 11/10/20 06:00 97.5 67 17 151/71 (97) 97 Room Air I&O- Last 24 Hours up to 6 AM 11/10/20 06:00 Intake Total 1720 ml Balance 1720 ml STEPHANY BROTHERS DO Nov 10, 2020 14:06
--- NOTE | 2020-11-10 16:17 | CR ---
CONSULTATION DATE: 11/10/2020 REASON FOR CONSULTATION: Rectal bleeding. BRIEF HISTORY OF PRESENT ILLNESS: Patient is a 70-year-old male who presented to the Emergency Room with a one day history of bright red blood per rectum, it was quite severe, approximately 24 hours ago. He had bright red blood per rectum that occurred every 1 to 2 hours, and then starting last evening this slowed down. Hematocrit was stable in the Emergency Room. He was not hypotensive, however, plan was for admission for rectal bleeding. He is on current anticoagulation with Xarelto. He had a colonoscopy two months ago with a poorly prepped colon, but otherwise showed diverticulosis, some hemorrhoids, but no active bleeding. No other significant abnormality, with recommendations by his supervisor particleboard for a follow-up colonoscopy in 2-3 years. Patient has had some cramping abdominal pain associated with the bright red blood per rectum. PAST MEDICAL HISTORY: Significant for history of hypertension, history of atrial fibrillation; status post cardioversion, history of non-insulin dependent diabetes mellitus, history of prostate cancer with prostatectomy, history of hyperlipidemia, obstructive sleep apnea. MEDICATIONS: Include Amiodarone, aspirin, Jardiance, Lisinopril, Metformin, Thera-M, fish oil, Xarelto, Simvastatin. PHYSICAL EXAMINATION: GENERAL: Reveals a 70-year-old male, looks stated age. HEENT: Unremarkable. NECK: Supple, without adenopathy. LUNGS: Clear to auscultation. HEART: Irregular with multiple irregular beats. ABDOMEN: Soft, nontender, non-distended. IMPRESSION/PLAN: Patient has evidence of rectal bleeding; most likely diverticular bleeding. It appears that he has slowed down overnight and with his hematocrit being stable overnight, do feel that it is reasonable to observe him/watch him throughout the day. He states that he had some smearing, but otherwise no significant bright red blood per rectum. He has had no fevers or chills. His white count has been normal. Patient has rectal bleeding, most likely diverticular in etiology. Would recommend him to stay n.p.o. at this time, and advance him to clear liquids later on today if he is still not having any further bleeding. Will plan on a bowel prep tomorrow with colonoscopy on Sunday, however, it is not unreasonable if his hematocrit stays stable overnight and into tomorrow that he can be discharged to home with follow-up with his supervisor particleboard in 2 to 3 weeks for reevaluation.
[2020-11-10] MEDS ORDERED: SIMVASTATIN 10 MG TAB PO SCH (18:00)
[2020-11-10 20:08] LABS: HEMATOCRIT 35.8 % (42.0-52.0); HEMOGLOBIN 11.6 g/dl (13.5-17.5)
[2020-11-10 22:00] VITALS: BP 145/65
[2020-11-11 02:00] LABS: HEMATOCRIT 35.2 % (42.0-52.0); HEMOGLOBIN 11.2 g/dl (13.5-17.5)
[2020-11-11 06:00] VITALS: BP 143/63
[2020-11-11 06:21] LABS: BASO % 0.4 % (0.0-1.0); EOS # 0.1 10^3/uL (0.0-0.5); EOS % 1.8 % (0.0-3.0); HEMATOCRIT 34.4 % (42.0-52.0); HEMOGLOBIN 11.1 g/dl (13.5-17.5); LYMPH # 1.9 10^3/uL (1.5-5.0); LYMPH % 24.3 % (24.0-44.0); MEAN CORPUSCULAR HEMOGLOBIN 30.7 pg (27.0-33.0); MEAN CORPUSCULAR HGB CONC 32.3 g/dl (32.0-36.5); MONO # 0.8 10^3/uL (0.0-0.8); MONO % 9.7 % (0.0-5.0); NEUTROPHILS # 4.9 10^3/uL (1.5-8.5); NEUTROPHILS % 63.5 % (36.0-66.0); PLATELET COUNT, AUTOMATED 142 10^3/uL (150-450); RED BLOOD COUNT 3.62 10^6/uL (4.30-6.10); WHITE BLOOD COUNT 7.7 10^3/uL (4.0-10.0)
[2020-11-11 06:50] LABS: BLOOD UREA NITROGEN 13 MG/DL (7-18); CALCIUM LEVEL 8.5 MG/DL (8.8-10.2); CARBON DIOXIDE LEVEL 24 MEQ/L (21-32); CHLORIDE LEVEL 109 MEQ/L (98-107); CREATININE FOR GFR 1.04 MG/DL (0.70-1.30); GLOMERULAR FILTRATION RATE > 60.0 (>42); GLUCOSE, FASTING 132 MG/DL (70-100); MAGNESIUM LEVEL 2.1 MG/DL (1.8-2.4); POTASSIUM SERUM 3.8 MEQ/L (3.5-5.1); SODIUM LEVEL 139 MEQ/L (136-145)
[2020-11-11] MEDS: MULTIVITAMINS/MINERALS THERAP 1 TAB PO SCH (09:20)
[2020-11-11] MEDS: PANTOPRAZOLE 40MG VIAL (C9113 PER 1) IV SCH (09:20)
[2020-11-11] MEDS: DOCUSATE SODIUM 100MG CAPSULE PO SCH (09:20)
[2020-11-11 14:00] VITALS: BP 163/77
--- NOTE | 2020-11-11 19:07 | DS.PDOC ---
Discharge Summary General Date of Admission Nov 09, 2020 at 22:27 Date of Discharge 11/11/20 Discharge Summary PROCEDURES PERFORMED DURING STAY: [None]. ADMITTING DIAGNOSES: Lower GI bleed Chronic Atrial fibrillation Hypertension Diabetes ANGEL Hyperlipidemia Coronary artery diseases DISCHARGE DIAGNOSES: Lower GI bleed Chronic Atrial fibrillation Hypertension Diabetes ANGEL Hyperlipidemia Coronary artery diseases COMPLICATIONS/CHIEF COMPLAINT: Afib, Gi Bleed. HISTORY OF PRESENT ILLNESS: 70M PMHx HTN, HLD, DM, A fib (s/p cardiovesion on xarleto) who presents to the ED for a 1 day history of bright red blood per rectum. HOSPITAL COURSE: During hospital stay the following issues addressed Lower GI bleed Most likely secondary to diverticulosis superimposed with therapy with xarelto Hemoglobin was stable Surgical team recommended colonoscopy in the outpatient settings Chronic Atrial fibrillation Status post cardioversion Xarelto on hold Heart rate under control Hypertension Blood pressure under control Continue home cardioprotective medication Diabetes Insulin sinus scale Diabetes diet ANGEL: may use own Bipap machine Hyperlipidemia Statin Coronary artery diseases If patient has stable coronary artery diseases patient should not be on the aspirin and xarelto. Patient should be on the xarelto I will discuss with Dr. Espino aspirin continuation DISCHARGE MEDICATIONS: Please see below. ALLERGIES: Please see below. PHYSICAL EXAMINATION ON DISCHARGE: VITAL SIGNS: Please see below. LABORATORY DATA: Please see below. IMAGING: [facility] NAME: JERI QUILES DATE OF : 1950 BUSINESS NUMBER: [id number] AGE: 70 SEX: M REPORT #: [id number] ROOM: ED TECHNOLOGIST: [email or web address] DOCTOR: SANTY HARTMANN PA-C Ordered for Date&Time: 11/09/201847 cc: [~ rep ct ivnm] Service Date&Time: 11/09/201929 This report is in Signed status. Interpretation performed by [facility]. Thank you for having your radiology procedures performed at [facility] RADIOLOGY REPORT Date&Time printed: [~ rep prt dt last] [~ rep prt tm last] Page 3 of [address] [address] RADIOLOGY REPORT This report is in Signed status. Interpretation performed by [facility]. Thank you for having your radiology procedures performed at [facility] RADIOLOGY REPORT Date&Time printed: [~ rep prt dt last] [~ rep prt tm last] Page 1 of 3 There is diffuse thickening of the bowel wall of the sigmoid colon which could be secondary to swelling related to inflammation. Infiltrative neoplasm not excluded. High density material within the lumen of this portion of the colon is very suggestive of a bleeding site and representing acute blood mixed with the contrast. There are also numerous large diverticula through the sigmoid colon and changes of diverticulitis also possible.Findings were discussed with SANTY HARTMANN at 11/09/2020 9:04 PM EST. Electronically signed by: James Ibrahim On 11/09/2020 21:05:34 PM DD: JAMES IBRAHIM MD 11/09/201929 DT: KIMI 11/09/202104 DS: FREDDIE 11/09/202104 PROCEDURE INFORMATION: Exam: CT Abdomen And Pelvis With Contrast Exam date and time: 11/09/2020 7:30 PM Age: 70 years old Clinical indication: Abdominal pain; Generalized; Additional info: Rectal bleeding, HX divertic, on xarelto TECHNIQUE: Imaging protocol: Computed tomography of the abdomen and pelvis with intravenous contrast. Radiation optimization: All CT scans at this facility use at least one of these dose optimization techniques: automated exposure control; mA and/or kV adjustment per patient size (includes targeted exams where dose is matched to clinical indication); or iterative reconstruction. Contrast material: ISOVUE 370; Contrast volume: 100 ml; Contrast route: INTRAVENOUS (IV); COMPARISON: No relevant prior studies available. FINDINGS: Lungs: The lung bases appear clear. Heart: The heart is normal in size and there is no pericardial effusion. Liver: Normal appearing liver. Gallbladder and bile ducts: Normal gallbladder. Pancreas: Normal appearing pancreas. Spleen: Normal appearing spleen. Adrenal glands: Normal adrenal glands. Kidneys and ureters: There is enhancement of both kidneys. There is a large cyst lower pole right kidney and a smaller cysts left kidney. There is no evidence of hydronephrosis. Stomach and bowel: There is thickening of the bowel wall of the sigmoid colon with numerous large diverticula. Within the lumen of the mid sigmoid colon there is high density material probably acute blood mixed with contrast. Appendix: Normal appearing appendix. Intraperitoneal space: There is no evidence of pneumoperitoneum. There is no evidence of free fluid in the abdomen. There is no evidence of mesenteric mass. Vasculature: There is opacification of the SMA. There is opacification of both renal arteries. The aorta appears normal in size. There is calcification with atherosclerotic plaque formation of the aorta. Lymph nodes: There is no evidence of lymphadenopathy. Urinary bladder: Unremarkable as visualized. Bones/joints: There is mild posterior disc protrusion L5-S1 and also mild anterior osteophyte formation thoracic and lumbar spine. Soft tissues: Unremarkable. Other findings: There is opacification of the SMV. IMPRESSION: There is thickening of the bowel wall of the sigmoid colon with numerous large diverticula. High density material within the lumen of the mid sigmoid colon is probably blood mixed with contrast and representing a an area of acute bleeding. Electronically signed by: James Ibrahim On 11/09/2020 20:46:16 PM DD: JAMES IBRAHIM MD 11/09/201929 DT: KIMI 11/09/202045 DS: FREDDIE 11/09/202045 [~ rep ct labl] PROGNOSIS: Fair ACTIVITY: [As tolerated]. DIET: Cardiac DISPOSITION: Home, Self-Care. ITEMS TO FOLLOWUP ON ON OUTPATIENT: Follow-up with PCP in 3 days, with GI team 3-5 days DISCHARGE CONDITION: [Stable]. TIME SPENT ON DISCHARGE: Greater than 20 minutes. Vital Signs/I&Os Vital Signs Date Time Temp Pulse Resp B/P (MAP) Pulse Ox O2 Delivery O2 Flow Rate FiO2 11/11/20 14:00 96.1 65 17 163/77 (105) 100 11/10/20 14:00 Room Air I&O- Last 24 Hours up to 6 AM 11/11/20 05:59 Intake Total 2850 ml Balance 2850 ml Laboratory Data Labs 24H Laboratory Tests 2 11/10/20 20:41: Bedside Glucose (Misc Panel) 144H 11/11/20 06:01: Immature Granulocyte % (Auto) 0.3, Neutrophils (%) (Auto) 63.5, Lymphocytes (%) (Auto) 24.3, Monocytes (%) (Auto) 9.7H, Eosinophils (%) (Auto) 1.8, Basophils (%) (Auto) 0.4, Neutrophils # (Auto) 4.9, Lymphocytes # (Auto) 1.9, Monocytes # (Auto) 0.8, Eosinophils # (Auto) 0.1, Basophils # (Auto) 0.0, Nucleated Red Blood Cells % (auto) 0.0, Anion Gap 6L, Glomerular Filtration Rate > 60.0, Calcium Level 8.5L, Magnesium Level 2.1 CBC/BMP Laboratory Tests 11/10/20 19:57 11/11/20 01:53 11/11/20 06:01 FSBS Laboratory Tests Test 11/10/20 20:41 Range/Units Bedside Glucose (Misc Panel) 144 83-110 MG/DL Discharge Medications Scheduled Amiodarone HCl (Amiodarone HCl) 200 Mg Tablet, 200 MG PO QPM, (Reported) TAKES AT 1800 Aspirin (Aspirin EC) 81 Mg Tablet.dr, 81 MG PO QPM, (Reported) TAKES AT 1800 Empagliflozin (Jardiance) 10 Mg Tablet, 10 MG PO DAILY, (Reported) Lisinopril (Lisinopril) 40 Mg Tablet, 40 MG PO QPM, (Reported) TAKES AT 1800 Metformin HCl (Metformin HCl) 1,000 Mg Tablet, 1,000 MG PO BID, (Reported) Multivitamins (Thera M Plus Tablet) 1 Each Tablet, 1 TAB PO DAILY, (Reported) [place]-3 Fatty Acids/Fish Oil (Fish Oil 1,000 mg Capsule) 1 Each Capsule, 1,000 MG PO BID, (Reported) Rivaroxaban (Xarelto) 20 Mg Tablet, 20 MG PO QPM, (Reported) TAKES AT 1800 Simvastatin (Simvastatin) 10 Mg Tablet, 10 MG PO QPM, (Reported) TAKES AT 1800 Allergies Coded Allergies: amoxicillin (Verified Adverse Reaction, Intermediate, diarrhea, 07/26/20) clavulanic acid (Verified Adverse Reaction, Intermediate, diarrhea, 07/26/20) STEPHANY BROTHERS DO Nov 11, 2020 19:07
== END 2020-11-11 16:10 | disposition home or self-care (01) | DRG 378 ==
LOC: M ED 17:24 → M ED INP 22:27 → M MSPAV 11-10 01:37
PROVIDERS: ADMIT Family Medicine; ATTEND Internal Medicine
DX: K57.91 Diverticulosis of intestine, part unspecified, without perforation or abscess with bleeding (principal); I48.20 Chronic atrial fibrillation, unspecified; I10 Essential (primary) hypertension; E11.9 Type 2 diabetes mellitus without complications; G47.33 Obstructive sleep apnea (adult) (pediatric); E78.5 Hyperlipidemia, unspecified; Z79.82 Long term (current) use of aspirin; Z79.899 Other long term (current) drug therapy; Z88.0 Allergy status to penicillin; Z88.8 Allergy status to other drugs, medicaments and biological substances; Z79.4 Long term (current) use of insulin; Z85.46 Personal history of malignant neoplasm of prostate; Z87.891 Personal history of nicotine dependence

== ENCOUNTER → 2020-12-25 | Outpatient (CLI) | payer MEDICARE ==
[~2020-12-25] MED LIST changes: +ASPI-161 PO; +FISH1000 PO; +HYDR-3490 PO; -HYDR25TAB PO; -LISI40TA PO; +LISI40TA4 PO; +VITMTA PO
== END ==
LOC: M LABSMTC 15:08
PROVIDERS: ATTEND Anesthesiology
DX: Z01.812 Encounter for preprocedural laboratory examination (principal); Z20.822 Contact with and (suspected) exposure to COVID-19

== ENCOUNTER 2020-12-30 06:58 | Day surgery (SDC) | payer MEDICARE ==
[~2020-12-30] VITALS: Ht 188 cm; Wt 105.7 kg
[~2020-12-30 06:58] MED LIST changes: +GLYB2.5T7 PO; -GLYB25TA PO; +NS 1,000 ML IV ONE
[2020-12-30] MEDS ORDERED: LIDOCAINE 2% 100MG/5ML SDV (FOR ANES.) As Ordered ONE (08:10)
[2020-12-30] MEDS ORDERED: propofoL 200 MG/20 ML VIAL As Ordered ONE ×2 (08:10→08:16)
--- NOTE | 2020-12-30 08:33 | ROOR ---
Patient Name: Kip Patrick Procedure Date: 12/30/2020 7:49 AM Date of : 1950 Age: 70 Room: [facility] Gender: Male Note Status: Finalized Procedure: Colonoscopy Indications: Hematochezia, Suspected colon diverticulosis with hemorrhage. (History of adenomatous colon polyps and poor prep in past) Providers: Joni BHATIA MD Referring MD: Erika Tan NP Requesting Provider: Medicines: Monitored Anesthesia Care Complications: No immediate complications. Procedure: Pre-Anesthesia Assessment: - The heart rate, respiratory rate, oxygen saturations, blood pressure, adequacy of pulmonary ventilation, and response to care were monitored throughout the procedure. The Colonoscope was introduced through the anus and advanced to the terminal ileum, with identification of the appendiceal orifice and IC valve. The patient tolerated the procedure well. The colonoscopy was technically difficult and complex due to multiple diverticula in the colon. Successful completion of the procedure was aided by changing endoscopes. The patient tolerated the procedure well. The quality of the bowel preparation was fair. Findings: The perianal and digital rectal examinations were normal. Multiple small and large-mouthed diverticula were found in the recto-sigmoid colon and sigmoid colon. There was narrowing of the colon in association with the diverticular opening. There was evidence of an impacted diverticulum. Internal hemorrhoids were found during retroflexion. The hemorrhoids were moderate. The exam was otherwise without abnormality on direct and retroflexion views. Impression: - Preparation of the colon was fair. - Moderate diverticulosis in the recto-sigmoid colon and in the sigmoid colon. There was tortuosity and diverticular spasm. - Moderate Internal hemorrhoids. - The examination was otherwise normal on direct and retroflexion views. - No specimens collected. Recommendation: - Resume Xarelto (rivaroxaban) at prior dose today. - Repeat colonoscopy in 5 years for screening purposes. Procedure Code(s): --- Professional --- 34796, Colonoscopy, flexible; diagnostic, including collection of specimen(s) by brushing or washing, when performed (separate procedure) Diagnosis Code(s): --- Professional --- K64.8, Other hemorrhoids K92.1, Melena (includes Hematochezia) K57.30, Diverticulosis of large intestine without perforation or abscess without bleeding CPT copyright 2019 [employer]. All rights reserved. The codes documented in this report are preliminary and upon inspector repairer sandstone review may be revised to meet current compliance requirements. Joni Bhatia MD Joni BHATIA MD 12/30/2020 8:34:14 AM Electronically signed by Joni BHATIA MD Number of Addenda: 0 Note Initiated On: 12/30/2020 7:49 AM Estimated Blood Loss: Estimated blood loss: none.
[2020-12-30 08:55] VITALS: BP 133/66
== END 2020-12-30 09:05 | disposition home or self-care (01) ==
LOC: M OPP 06:58
PROVIDERS: ATTEND Internal Medicine Gastroenterology
DX: K57.30 Diverticulosis of large intestine without perforation or abscess without bleeding (principal); K64.8 Other hemorrhoids; K92.1 Melena; I48.91 Unspecified atrial fibrillation; E11.9 Type 2 diabetes mellitus without complications; I25.2 Old myocardial infarction; I10 Essential (primary) hypertension; Z79.82 Long term (current) use of aspirin; Z79.84 Long term (current) use of oral hypoglycemic drugs; Z79.899 Other long term (current) drug therapy; Z88.0 Allergy status to penicillin; Z88.1 Allergy status to other antibiotic agents; Z87.891 Personal history of nicotine dependence

== ENCOUNTER → 2022-04-27 | Outpatient (CLI) | payer MEDICARE ==
[~2022-04-27] MED LIST changes: -AMIO200T3 PO; +AMIO200T49 PO; -IBUP200T45 PO; +IBUP200T46 PO; -NS 1,000 ML IV ONE
== END ==
LOC: M SLEEP 20:00
PROVIDERS: ATTEND Nurse Practitioner Family
DX: G47.33 Obstructive sleep apnea (adult) (pediatric) (principal)

== ENCOUNTER → 2022-11-07 | Outpatient (CLI) | payer MEDICARE | LOC: M RAD 14:06 | PROVIDERS: ATTEND Nurse Practitioner Family | DX: D14.2 Benign neoplasm of trachea (principal) ==

== ENCOUNTER → 2022-11-22 | Outpatient (CLI) | payer MEDICARE | LOC: M RAD 14:39 | PROVIDERS: ATTEND Nurse Practitioner Family | DX: J43.9 Emphysema, unspecified (principal); R59.0 Localized enlarged lymph nodes; I70.0 Atherosclerosis of aorta; I77.811 Abdominal aortic ectasia; K44.9 Diaphragmatic hernia without obstruction or gangrene; M48.14 Ankylosing hyperostosis [Forestier], thoracic region ==

== ENCOUNTER 2023-02-27 11:59 | Observation (INO) | payer MEDICARE ==
[~2023-02-27] VITALS: Ht 188 cm; Wt 102.0 kg
[~2023-02-27 11:59] MED LIST changes: +CVS2500C PO; +D3 S1CAP PO; +LIPI20TA PO
[2023-02-27 13:42] LABS: BASO % 0.5 % (0.0-1.0); EOS # 0.1 10^3/uL (0.0-0.5); EOS % 0.9 % (0.0-3.0); HEMATOCRIT 44.9 % (42.0-52.0); HEMOGLOBIN 14.8 g/dl (13.5-17.5); LYMPH # 1.7 10^3/uL (1.5-5.0); LYMPH % 22.7 % (24.0-44.0); MEAN CORPUSCULAR HEMOGLOBIN 31.2 pg (27.0-33.0); MEAN CORPUSCULAR VOLUME 94.7 fl (80.0-96.0); MONO # 0.8 10^3/uL (0.0-0.8); MONO % 9.9 % (2.0-8.0); NEUTROPHILS # 4.9 10^3/uL (1.5-8.5); NEUTROPHILS % 65.1 % (36.0-66.0); PLATELET COUNT, AUTOMATED 168 10^3/uL (150-450); RED BLOOD COUNT 4.74 10^6/uL (4.30-6.10); WHITE BLOOD COUNT 7.5 10^3/uL (4.0-10.0)
[2023-02-27 13:55] LABS: INR 1.35; PROTHROMBIN TIME 16.9 SECONDS (12.5-14.5)
[2023-02-27 13:56] LABS: PARTIAL THROMBOPLASTIN TIME 36.8 SECONDS (24.8-34.2)
[2023-02-27 14:07] LABS: ALBUMIN 4.1 G/DL (3.2-5.2); ALKALINE PHOSPHATASE 65 U/L (46-116); ALT/SGPT 29 U/L (7.0-40); AST/SGOT 25 U/L (<34); BILIRUBIN,TOTAL 0.5 MG/DL (0.3-1.2); BLOOD UREA NITROGEN 23 MG/DL (9-23); CALCIUM LEVEL 9.5 MG/DL (8.3-10.6); CARBON DIOXIDE LEVEL 28 MMOL/L (20-31); CHLORIDE LEVEL 102 MMOL/L (98-107); CREATININE FOR GFR 1.12 MG/DL (0.70-1.30); GLOMERULAR FILTRATION RATE > 60.0 (>42); GLUCOSE, FASTING 148 MG/DL (74-106); POTASSIUM SERUM 4.1 MMOL/L (3.5-5.1); SODIUM LEVEL 138 MMOL/L (136-145); TOTAL PROTEIN 7.3 G/DL (5.7-8.2)
[2023-02-27] MEDS ORDERED: DEXTROSE 50% 50ML SYRINGE IV PRN (16:00)
[2023-02-27] MEDS ORDERED: GLUCAGON INJ 1MG VIAL SC PRN (16:00)
[2023-02-27] MEDS ORDERED: GLUCOSE 4GM CHEW TABLET PO PRN (16:00)
[2023-02-27 16:33] LABS: RSV AMPLIFICATION NEGATIVE (NEGATIVE)
[2023-02-27] MEDS ORDERED: JARD1TAB3 PO (16:43)
[2023-02-27] MEDS ORDERED: B-12100020 PO (16:43)
[2023-02-27] MEDS ORDERED: META28.32 PO (16:44)
[2023-02-27] MEDS ORDERED: HOME MED LIST COMPLETE! XX SCH (16:45)
[2023-02-27 18:11] LABS: HEMATOCRIT 42.8 % (42.0-52.0); HEMOGLOBIN 14.4 g/dl (13.5-17.5)
[2023-02-27] MEDS: NS 1,000 ML IV SCH (18:13)
[2023-02-27 18:15] VITALS: BP 151/87
[2023-02-27] MEDS: INSULIN LISPRO (NovoLOG) PER UNIT SC SCH ×2 (18:32→20:33)
[2023-02-27] MEDS: SUCRALFATE SUSP 1GM/10ML UD PO SCH ×2 (18:40→23:56)
[2023-02-27 19:45] VITALS: BP 145/76
[2023-02-27] MEDS: lisinopriL 40MG TAB PO SCH (20:34)
[2023-02-27] MEDS: PANTOPRAZOLE 40MG VIAL IV SCH (20:34)
[2023-02-27] MEDS: ATORVASTATIN 20 MG TAB PO SCH (20:34)
[2023-02-27 23:58] VITALS: BP 146/77
[2023-02-28 00:55] LABS: HEMATOCRIT 39.8 % (42.0-52.0); HEMOGLOBIN 13.4 g/dl (13.5-17.5)
[2023-02-28 03:59] VITALS: BP 121/64
[2023-02-28 05:51] LABS: BASO % 0.4 % (0.0-1.0); EOS # 0.1 10^3/uL (0.0-0.5); EOS % 1.4 % (0.0-3.0); HEMATOCRIT 39.9 % (42.0-52.0); HEMOGLOBIN 13.2 g/dl (13.5-17.5); LYMPH # 2.5 10^3/uL (1.5-5.0); LYMPH % 29.3 % (24.0-44.0); MEAN CORPUSCULAR HEMOGLOBIN 31.4 pg (27.0-33.0); MEAN CORPUSCULAR HGB CONC 33.1 g/dl (32.0-36.5); MEAN CORPUSCULAR VOLUME 94.8 fl (80.0-96.0); MONO % 11.4 % (2.0-8.0); NEUTROPHILS # 4.8 10^3/uL (1.5-8.5); NEUTROPHILS % 57.3 % (36.0-66.0); PLATELET COUNT, AUTOMATED 154 10^3/uL (150-450); RED BLOOD COUNT 4.21 10^6/uL (4.30-6.10); WHITE BLOOD COUNT 8.4 10^3/uL (4.0-10.0)
[2023-02-28] MEDS: SUCRALFATE SUSP 1GM/10ML UD PO SCH ×3 (05:56→18:33)
[2023-02-28 06:15] LABS: BLOOD UREA NITROGEN 20 MG/DL (9-23); CALCIUM LEVEL 8.3 MG/DL (8.3-10.6); CARBON DIOXIDE LEVEL 26 MMOL/L (20-31); CHLORIDE LEVEL 104 MMOL/L (98-107); CREATININE FOR GFR 1.22 MG/DL (0.70-1.30); GLOMERULAR FILTRATION RATE > 60.0 (>42); GLUCOSE, FASTING 116 MG/DL (74-106); POTASSIUM SERUM 3.9 MMOL/L (3.5-5.1); SODIUM LEVEL 139 MMOL/L (136-145)
[2023-02-28] MEDS: INSULIN LISPRO (NovoLOG) PER UNIT SC SCH ×4 (07:30→21:00)
[2023-02-28 07:42] VITALS: BP 140/94
[2023-02-28] MEDS: AMIODARONE 200 MG TAB (PACERONE) PO SCH (08:56)
[2023-02-28] MEDS: PANTOPRAZOLE 40MG VIAL IV SCH ×2 (08:56→21:09)
[2023-02-28] MEDS: NS 1,000 ML IV SCH (08:57)
[2023-02-28] MEDS ORDERED: PNEUMOCOCCAL VACCINE 0.5ML SYRINGE (PNEUMOVAX 23) IM.IMMUN ONE (09:00)
[2023-02-28 11:44] VITALS: BP 140/85
[2023-02-28 12:18] LABS: HEMATOCRIT 40.2 % (42.0-52.0); HEMOGLOBIN 13.6 g/dl (13.5-17.5)
[2023-02-28 15:50] VITALS: BP 138/63
[2023-02-28 18:24] LABS: HEMATOCRIT 42.4 % (42.0-52.0)
[2023-02-28 19:50] VITALS: BP 152/77
[2023-02-28] MEDS: lisinopriL 40MG TAB PO SCH (21:09)
[2023-02-28] MEDS: ATORVASTATIN 20 MG TAB PO SCH (21:09)
[2023-02-28 23:39] VITALS: BP 127/75
[2023-03-01 00:15] LABS: HEMATOCRIT 40.1 % (42.0-52.0); HEMOGLOBIN 13.2 g/dl (13.5-17.5)
[2023-03-01] MEDS: SUCRALFATE SUSP 1GM/10ML UD PO SCH ×3 (00:45→12:01)
[2023-03-01 03:26] VITALS: BP 140/62
[2023-03-01 06:06] LABS: BASO % 0.4 % (0.0-1.0); EOS # 0.1 10^3/uL (0.0-0.5); EOS % 1.4 % (0.0-3.0); HEMATOCRIT 42.1 % (42.0-52.0); HEMOGLOBIN 13.9 g/dl (13.5-17.5); LYMPH # 2.4 10^3/uL (1.5-5.0); LYMPH % 33.3 % (24.0-44.0); MEAN CORPUSCULAR HEMOGLOBIN 31.6 pg (27.0-33.0); MEAN CORPUSCULAR VOLUME 95.7 fl (80.0-96.0); MONO # 0.7 10^3/uL (0.0-0.8); MONO % 9.1 % (2.0-8.0); NEUTROPHILS % 55.7 % (36.0-66.0); PLATELET COUNT, AUTOMATED 162 10^3/uL (150-450); WHITE BLOOD COUNT 7.1 10^3/uL (4.0-10.0)
[2023-03-01 06:31] LABS: BLOOD UREA NITROGEN 16 MG/DL (9-23); CALCIUM LEVEL 8.8 MG/DL (8.3-10.6); CARBON DIOXIDE LEVEL 29 MMOL/L (20-31); CHLORIDE LEVEL 106 MMOL/L (98-107); CREATININE FOR GFR 1.17 MG/DL (0.70-1.30); GLOMERULAR FILTRATION RATE > 60.0 (>42); GLUCOSE, FASTING 133 MG/DL (74-106); POTASSIUM SERUM 3.6 MMOL/L (3.5-5.1); SODIUM LEVEL 141 MMOL/L (136-145)
[2023-03-01 08:00] VITALS: BP 148/79
[2023-03-01] MEDS: INSULIN LISPRO (NovoLOG) PER UNIT SC SCH ×2 (08:54→12:02)
[2023-03-01] MEDS: PANTOPRAZOLE 40MG VIAL IV SCH (09:05)
[2023-03-01] MEDS: AMIODARONE 200 MG TAB (PACERONE) PO SCH (09:05)
[2023-03-01] MEDS ORDERED: PANT40TA29 PO (10:48)
[2023-03-01] MEDS ORDERED: SUCR1ORA PO (10:48)
[2023-03-01] MEDS ORDERED: XARE20TA PO (11:07)
[2023-03-01] MEDS ORDERED: ASPI-161 PO (11:07)
[2023-03-01 12:22] LABS: HEMATOCRIT 44.7 % (42.0-52.0); HEMOGLOBIN 14.4 g/dl (13.5-17.5)
== END 2023-03-01 12:45 | disposition home or self-care (01) ==
LOC: M ED 11:59 → M ED INP 15:42 → M PCU 17:54
PROVIDERS: ADMIT Internal Medicine; ATTEND Internal Medicine
DX: K62.5 Hemorrhage of anus and rectum (principal); K92.2 Gastrointestinal hemorrhage, unspecified; I48.91 Unspecified atrial fibrillation; Z79.01 Long term (current) use of anticoagulants; E11.9 Type 2 diabetes mellitus without complications; Z79.84 Long term (current) use of oral hypoglycemic drugs; I10 Essential (primary) hypertension; E78.5 Hyperlipidemia, unspecified; I25.10 Atherosclerotic heart disease of native coronary artery without angina pectoris; G47.33 Obstructive sleep apnea (adult) (pediatric); Z79.82 Long term (current) use of aspirin; Z79.899 Other long term (current) drug therapy; Z88.0 Allergy status to penicillin; Z88.8 Allergy status to other drugs, medicaments and biological substances; Z23 Encounter for immunization
CPT/HCPCS: 36415; 71046; 80048; 80053; 85014; 85018; 85025; 85610; 85730; 86850; 86900; 86901; 87631; 90732; 93005; 96361; 96374; 96376; 99284; C9113; G0009; G0378; J1815

== ENCOUNTER 2023-04-24 06:27 | Day surgery (SDC) | payer MEDICARE ==
[~2023-04-24] VITALS: Ht 188 cm; Wt 103.7 kg
[~2023-04-24 06:27] MED LIST changes: +B-12100020 PO; +JARD1TAB3 PO; +META28.32 PO; +NS 1,000 ML IV ONE; +PANT40TA29 PO; +SUCR1ORA PO
[2023-04-24] MEDS ORDERED: METO1TAB32 PO (07:09)
[2023-04-24] MEDS ORDERED: propofoL 500 MG/50 ML VIAL As Ordered ONE (07:31)
[2023-04-24] MEDS ORDERED: LIDOCAINE 2% 100MG/5ML SDV (FOR ANES.) As Ordered ONE (07:31)
[2023-04-24 07:53] VITALS: TEMP 98.1
[2023-04-24 08:40] VITALS: BP 132/72; O2SAT 98
== END 2023-04-24 12:00 | disposition home or self-care (01) ==
LOC: M OPP 06:27
PROVIDERS: ATTEND Internal Medicine Gastroenterology
DX: K57.31 Diverticulosis of large intestine without perforation or abscess with bleeding (principal); K64.8 Other hemorrhoids; K92.1 Melena; Z79.02 Long term (current) use of antithrombotics/antiplatelets; Z79.84 Long term (current) use of oral hypoglycemic drugs; Z79.899 Other long term (current) drug therapy; Z79.82 Long term (current) use of aspirin; Z88.1 Allergy status to other antibiotic agents